=== PATIENT | female | born 1965 | race Caucasian/White ===

== ENCOUNTER 2021-06-05 08:32 | Emergency (ER) | payer BC, SELFPAY ==
--- NOTE | ~2021-06-05 | CT_ITS ---
EXAMINATION: CT ANGIOGRAM OF THE CHEST WITH AND WITHOUT CONTRAST (CT PULMONARY ANGIOGRAM FOR PE) CLINICAL INFORMATION: Reason for Exam pt c right chest pain/sob elevated d-dimer COMPARISON: None TECHNIQUE: Prior to contrast administration, noncontrast localization images were obtained. Subsequently, multidetector volumetric imaging was performed from the thoracic inlet to below the diaphragms following the administration of 130 mL Omnipaque 350 intravenous contrast. No contrast reaction reported Sagittal, coronal, and MIP oblique sagittal reformatted images were obtained on the CT workstation, uploaded to PACS, and reviewed. This CT examination was performed using dose optimization techniques as appropriate, variously including the following: *Automated exposure control *Adjustment of mA and/or kV according to patient size (this includes techniques or standardized protocols for targeted exams where dose is matched to indication/reason for exam; i.e. extremities or head) *Use of iterative reconstruction technique Total exam dose-length product 237 mGy-cm FINDINGS: QUALITY OF STUDY/CONTRAST BOLUS: Satisfactory. PULMONARY ARTERIES: No central or segmental pulmonary emboli. THORACIC AORTA: No aneurysm or dissection. LUNG: The lungs are well-expanded and clear of acute pneumonic process. There is a 2 mm nodule right upper lobe axial image 140/8. No additional nodules seen. There is no consolidation or mass. There is bibasilar and lingular atelectasis and/or scarring. PLEURA: There is bilateral posterior pleural thickening. MEDIASTINUM: Heart size and the great vessels are normal. There is no pericardial effusion. The central trachea and the bronchi widely patent. The thyroid lobes are symmetrical and normal. No abnormal size mediastinal or hilar lymph nodes seen. There is a small hiatal hernia. CHEST WALL/AXILLA: No axillary or internal mammary lymphadenopathy. OSSEOUS STRUCTURES: No acute or suspicious osseous abnormality. UPPER ABDOMEN: Visualized liver, spleen, pancreas and bilateral adrenal glands unremarkable. No reflux of contrast into the hepatic veins to suggest elevated right heart pressures. CT/CT angio chest PE protocol IMPRESSION: No evidence of PE. No evidence aortic dissection. Bibasilar and lingular atelectasis and/or scarring. VTE: negative.
--- NOTE | ~2021-06-05 | XR_ITS ---
EXAMINATION: XR RIBS, RIGHT CLINICAL INFORMATION: Rib pain. COMPARISON: None TECHNIQUE: 3 views of the right ribs were obtained. Chest one view. FINDINGS: CHEST: Lungs are well-expanded and clear of acute process. Heart size and pulmonary vascularity are normal. No gross bony abnormality is seen. RIGHT RIBS: Multiple views of right ribs reveal no visible acute fracture or bony abnormality. The soft tissues are normal. XR/XR ribs RT min 3V w CXR1V IMPRESSION: Unremarkable chest exam. Unremarkable right rib series.
[2021-06-05 08:42] VITALS: BP 125/89; PULSE 83; RESP 16; TEMP 36.1; O2SAT 100; BMI 29.4
--- NOTE | 2021-06-05 08:46 | ECG_ITS ---
Test Reason : rib pain Blood Pressure : / mmHG Vent. Rate : 076 BPM Atrial Rate : 076 BPM P-R Int : 148 ms QRS Dur : 080 ms QT Int : 400 ms P-R-T Axes : 031 005 025 degrees QTc Int : 450 ms Normal sinus rhythm Normal ECG No previous ECGs available Referred By: Generic ED Physician Electronically Signed By:JULIANNA PALOMINO MD
[2021-06-05 10:47] LABS: MANUAL DIFF FLAG NO
[2021-06-05 10:49] LABS: Basophils Absolute Auto 0.1 X10*3/uL (0.0-0.2); Basophils Percent Auto 0.7 % (0-2); Eosinophils Absolute Auto 0.1 X10*3/uL (0.0-0.4); Hematocrit 39.5 % (37.0-47.0); Hemoglobin 13.1 g/dl (12.0-16.0); Imm Gran Abs Auto 0.02 X10*3/uL (0.00-0.03); Imm Gran Pct Auto 0.3 % (0.0-0.4); Lymphocytes Absolute Auto 1.4 X10*3/uL (1.2-4.9); Lymphocytes Percent Auto 18.4 % (20-40); Mean Corpuscular HGB Conc 33.2 g/dl (31.0-35.0); Mean Corpuscular Hemoglobin 29.6 pg (27.0-33.0); Mean Corpuscular Volume 89.4 fL (80.0-98.0); Mean Platelet Volume 9.6 fL (9.4-12.3); Monocytes Absolute Auto 0.9 X10*3/uL (0.1-1.2); Neutrophils Percent Auto 67.6 % (45-73); Platelet Count 228 X10*3/uL (160-400); Red Blood Count 4.42 X10*6/uL (4.20-5.50); Red Cell Distribution Width 12.1 % (11.0-16.0); White Blood Count 7.3 X10*3/uL (4.8-10.8)
[2021-06-05 10:52] LABS: Appearance Urine CLEAR; Color Urine STRAW; Glucose Urine UA NEG (NEG); Leukocyte Esterase Urine NEG (NEG); Nitrite Urine NEG (NEG); Specific Gravity - Urine <= 1.005 (1.005-1.025); Urine Blood NEG (NEG); Urine Ketones NEG (NEG); Urine Protein NEG (NEG-TRACE)
[2021-06-05 10:54] LABS: INTERNATIONAL NORM RATIO 0.9 (0.9-1.1); Prothrombin Time 9.6 SEC (9.9-13.0)
[2021-06-05 10:56] LABS: D Dimer High Sensitivity 261 NG/ML
[2021-06-05 11:07] LABS: Alanine Aminotransferase 31 U/L (0-31); Albumin Level 4.3 g/dL (3.5-5.0); Alkaline Phosphatase 53 U/L (39-117); Anion Gap 11 (12-20); Aspartate Amino Transferase 28 U/L (5-31); Bilirubin Total 0.5 mg/dL (0.0-1.0); Blood Urea Nitrogen 7 mg/dL (9-16); Calcium 9.7 mg/dL (8.4-10.2); Carbon Dioxide 33 mmol/L (22-29); Chloride 104 mmol/L (96-108); Creatinine Clr Calc Pharmacy 85.8; Estimated Glomerular Filt Rate > 60; Glucose Random 100 mg/dL (60-115); Magnesium 2.2 mg/dL (1.6-2.6); Sodium 144 mmol/L (135-145); Total Protein 6.8 g/dL (6.5-8.0)
[2021-06-05 11:14] LABS: Troponin-I High Sensitivity < 3.5 ng/L (<3.5-17.0)
--- NOTE | 2021-06-05 11:15 | ED.CHESTPAIN ---
HPI - Chest Pain General Chief Complaint: General Medical Stated Complaint: r rib pain hurts to breathe Time Seen by Provider: 06/05/21 09:42 Source: patient Mode of arrival: ambulatory Limitations: no limitations History of Present Illness HPI narrative: 55-year-old female who denies any medical history presenting to the ED with complaints of right lower anterior rib cage/anterior chest pain for the past week that is now radiating to her upper right chest/right shoulder today. She reports it is worse when she takes a deep breath or certain movements. She reports that she tested herself for COVID this morning at her house and was negative. She denies any falls, trauma, fevers, chills, dizziness, headaches, neck pain/stiffness, palpitations, dyspnea on exertion, orthopnea, paresthesias, nausea/vomiting/diarrhea, abdominal pain, back pain, dysuria, rashes, cough or any other symptoms complaints or concerns at this time. She denies recent surgery/mobilizations/hypercoagulation disorder/travel/history of PE or DVT/history of hypercoagulation disorder/estrogen usage or PVD disease that she is aware of. MD complaint: chest discomfort Onset (ago): week(s) (1) Timing of current episode: constant Prior episodes: No Onset: other (Cannot recall) Pain location: right chest Pain radiation: right arm, right shoulder and right scapula Severity: moderate Quality: aching Relieving factors: nothing Exacerbating factors: inspiration, palpation and movement Treatment prior to arrival: none Risk Factors Coronary artery disease risk factors: none Thoracic aortic dissection risk factors: none Related Data On Oral Contraceptives: No Previous Rx's Medication Instructions Recorded diazepam 10 mg tablet (Valium) 10 mg PO Q8H PRN #14 tab 06/05/21 ibuprofen 800 mg tablet 800 mg PO Q8H PRN #14 tab 06/05/21 Allergies Allergy/AdvReac Type Severity Reaction Status Date / Time No Known Allergies Allergy Verified 06/05/21 08:46 Review of Systems Review of Systems: Constitutional : No Weight loss, No Fever, No Chills, No Night Sweats, No Fatigue, No Malaise ENT/Mouth : No Hearing loss, No Ear Pain, No Nasal Congestion, No Sinus Pain, No Hoarseness, No sore throat, No Rhinorrhea, No Swallowing Difficulty Eyes: No Eye Pain, No Swelling, No Redness, No Foreign Body, No Discharge, No Vision Changes Cardiovascular : + Rib cage/Chest Pain, + SOB, No Dyspnea on Exertion, No Orthopnea, No Edema, No Palpitations Respiratory : No Cough, No Sputum, No Wheezing, No Smoke Exposure, No Dyspnea Gastrointestinal : No Nausea, No Vomiting, No Diarrhea, No Constipation, No abdominal Pain, No Hematochezia, No Melena Genitourinary : no irregular bleeding, No Dysuria, No Urinary Frequency, No Hematuria, No Urinary Incontinence, No Urgency, No Flank Pain, No Urinary Flow Changes, No Hesitancy Musculoskeletal : No joint pain, No Myalgias, No Joint Swelling Skin : No Skin Lesions, No rash Neuro : No Weakness, No Numbness, No Paresthesias, No Loss of Consciousness, No Dizziness, No Headache Psych : No Anxiety/Panic, No Depression, No SI/HI/AH/VH, No Social Issues, Heme/Lymph: No Bruising, No Bleeding,No Lymphadenopathy Endocrine : No Polyuria, No Polydipsia, No Temperature Intolerance Yes all other systems are reviewed and are negative [facility] Past Medical History Attestation statement: The following information was validated with the patient. Medical History Chronic pain Social History Social History Advance Directives: No Advance Directives Information Provided: No Physical Exam Vital Signs: Vital Signs: Last Vital Signs Temp 97.0 F 06/05/21 08:42 Pulse 83 06/05/21 08:42 Resp 16 06/05/21 08:42 BP 125/89 06/05/21 08:42 Pulse Ox 100 06/05/21 08:42 BMI result Body Mass Index 29.4 vital signs have been reviewed as normal and appeared to be correct. Blood pressure normal. Heart rate normal. Respiration rate normal. Temperature normal. Oxygen saturation normal. Appearance: Alert. Oriented X3. No acute distress. Head: Normal external exam. Normocephalic. Atraumatic. Eyes: PERRLA. EOMI. Conjunctiva and sclera normal. Eyelids normal. ENT: Pharynx normal. Uvula midline. Moist mucous membranes. Neck: Normal inspection. Neck supple. FROM. No adenopathy. Thyroid Normal. No meningeal signs. No neck mass noted. CVS: Normal heart rate and rhythm. Heart sound normal. Pulses normal throughout. No murmurs/rales/gallops. Respiratory: No respiratory distress. Painless inspiration. Breath sounds normal. No wheezes/rales/rhonchi noted. Patient with tenderness palpation to the anterior lateral chest wall. No crepitus is noted. No rashes are noted. Not consistent with flail chest. No signs of infection noted. No abnormalities noted on the chest. No accessory muscle usage noted or decreased air movement noted. Abdomen: Soft and nontender. Bowel sounds normal in all 4 quadrants. No distention noted. No organomegaly noted. No visible injury noted. Back: Full range of motion noted. No rashes/lesion/induration/fluctuance or signs of infection noted. Skin: Skin warm and dry. Normal skin color. Normal skin turgor. No rashes/lesions/lacerations noted. Extremities: No lower extremity edema. No calf tenderness is noted. Extremities exhibit normal range of motion. Extremities nontender. Neuro: Oriented X 3. No motor deficit. No sensory deficit. Reflexes normal. Normal steady gait. No focal neuro deficits noted. Vascular: + radial pulses/+ 2 distal pedal pulses/+2 dorsalis pedis b/l. Normal cap refill. No cyanosis noted to upper extremity nails and lower extremity toes nails. Course Course Course Narrative: 10am - 55-year-old female who denies any medical history presenting to the ED with complaints of right lower anterior rib cage/anterior chest pain for the past week that is now radiating to her upper right chest/right shoulder today. She reports it is worse when she takes a deep breath or certain movements. She reports that she tested herself for COVID this morning at her house and was negative. She denies any falls, trauma, fevers, chills, dizziness, headaches, neck pain/stiffness, palpitations, dyspnea on exertion, orthopnea, paresthesias, nausea/vomiting/diarrhea, abdominal pain, back pain, dysuria, rashes, cough or any other symptoms complaints or concerns at this time. She denies recent surgery/mobilizations/hypercoagulation disorder/travel/history of PE or DVT/history of hypercoagulation disorder/estrogen usage or PVD disease that she is aware of. Plan: Labs including D-dimer and troponin, EKG, ribs with chest x-ray then re-evaluate. Reevaluation(s) Reevaluation #1: - labs reviewed and carbon dioxide 33. Anion gap 11. BUN 7. D-dimer elevated at 261. Otherwise all other labs are within normal limits including D-dimer. UA within normal limits no evidence of UTI. Rib/PA chest x-ray within normal limits no acute processes are noted. - therefore due to elevated D-dimer will obtain a CTA of chest for possible PE if negative will DC home with symptomatic treatment for possibly musculoskeletal pain. Patient understands agrees with this plan. Time: 11:16 Reevaluation #2: CTA negative patient most likely muscular skeletal pain. Will DC home with symptomatic treatment instructions to follow up with primary care and to return if any new or worsening symptoms. Patient understands agrees with this plan. Time: 14:51 [facility] - Chest Pain Medical Records Data Attestation: I reviewed the patient's medical records. Lab Data Attestation: I reviewed the patient's lab results. Result diagrams: 06/05/21 10:36 06/05/21 10:36 Labs: Lab Results 06/05/21 06/05/21 06/05/21 Range/Units 10:35 10:36 10:36 WBC 7.3 (4.8-10.8) X10*3/uL RBC 4.42 (4.20-5.50) X10*6/uL Hgb 13.1 (12.0-16.0) g/dl Hct 39.5 (37.0-47.0) % MCV 89.4 (80.0-98.0) fL MCH 29.6 (27.0-33.0) pg MCHC 33.2 (31.0-35.0) g/dl RDW 12.1 (11.0-16.0) % Plt Count 228 (160-400) X10*3/uL MPV 9.6 (9.4-12.3) fL Immature Gran % (Auto) 0.3 (0.0-0.4) % Neut % (Auto) 67.6 (45-73) % Lymph % (Auto) 18.4 L (20-40) % Polk % (Auto) 12.0 H (2-11) % Eos % (Auto) 1.0 (0-4) % Baso % (Auto) 0.7 (0-2) % Lymph # (Auto) 1.4 (1.2-4.9) X10*3/uL Polk # (Auto) 0.9 (0.1-1.2) X10*3/uL Eos # (Auto) 0.1 (0.0-0.4) X10*3/uL Baso # (Auto) 0.1 (0.0-0.2) X10*3/uL Abs Immat Gran (auto) 0.02 (0.00-0.03) X10*3/uL Absolute Neuts (auto) 5.0 (2.0-8.3) x10*3/uL Absolute Nucleated RBC 0.000 (0.0-0.012) X10*3/uL Nucleated RBC % (auto) 0.0 (0.0-0.2) /100WBC PT 9.6 L (9.9-13.0) SEC INR 0.9 (0.9-1.1) D-Dimer High Sensitivty 261 NG/ML Sodium (135-145) mmol/L Potassium (3.3-5.1) mmol/L Chloride (96-108) mmol/L Carbon Dioxide (22-29) mmol/L Anion Gap (12-20) BUN (9-16) mg/dL Creatinine (0.5-1.4) mg/dL Estim Creat Clear Calc Estimated GFR Random Glucose (60-115) mg/dL Calcium (8.4-10.2) mg/dL Magnesium (1.6-2.6) mg/dL Total Bilirubin (0.0-1.0) mg/dL AST (5-31) U/L ALT (0-31) U/L Alkaline Phosphatase (39-117) U/L Troponin I High Sens < 3.5 (<3.5-17.0) ng/L Total Protein (6.5-8.0) g/dL Albumin (3.5-5.0) g/dL Urine Color Urine Appearance Urine pH (5.0-8.0) Ur Specific [place] (1.005-1.025) Urine Protein (NEG-TRACE) MG/DL Urine Glucose (UA) (NEG) MG/DL Urine Ketones (NEG) MG/DL Urine Blood (NEG) Urine Nitrite (NEG) Ur Leukocyte Esterase (NEG) 06/05/21 06/05/21 Range/Units 10:36 10:39 WBC (4.8-10.8) X10*3/uL RBC (4.20-5.50) X10*6/uL Hgb (12.0-16.0) g/dl Hct (37.0-47.0) % MCV (80.0-98.0) fL MCH (27.0-33.0) pg MCHC (31.0-35.0) g/dl RDW (11.0-16.0) % Plt Count (160-400) X10*3/uL MPV (9.4-12.3) fL Immature Gran % (Auto) (0.0-0.4) % Neut % (Auto) (45-73) % Lymph % (Auto) (20-40) % Polk % (Auto) (2-11) % Eos % (Auto) (0-4) % Baso % (Auto) (0-2) % Lymph # (Auto) (1.2-4.9) X10*3/uL Polk # (Auto) (0.1-1.2) X10*3/uL Eos # (Auto) (0.0-0.4) X10*3/uL Baso # (Auto) (0.0-0.2) X10*3/uL Abs Immat Gran (auto) (0.00-0.03) X10*3/uL Absolute Neuts (auto) (2.0-8.3) x10*3/uL Absolute Nucleated RBC (0.0-0.012) X10*3/uL Nucleated RBC % (auto) (0.0-0.2) /100WBC PT (9.9-13.0) SEC INR (0.9-1.1) D-Dimer High Sensitivty NG/ML Sodium 144 (135-145) mmol/L Potassium 4.0 (3.3-5.1) mmol/L Chloride 104 (96-108) mmol/L Carbon Dioxide 33 H (22-29) mmol/L Anion Gap 11 L (12-20) BUN 7 L (9-16) mg/dL Creatinine 0.72 (0.5-1.4) mg/dL Estim Creat Clear Calc 85.8 Estimated GFR > 60 Random Glucose 100 (60-115) mg/dL Calcium 9.7 (8.4-10.2) mg/dL Magnesium 2.2 (1.6-2.6) mg/dL Total Bilirubin 0.5 (0.0-1.0) mg/dL AST 28 (5-31) U/L ALT 31 (0-31) U/L Alkaline Phosphatase 53 (39-117) U/L Troponin I High Sens (<3.5-17.0) ng/L Total Protein 6.8 (6.5-8.0) g/dL Albumin 4.3 (3.5-5.0) g/dL Urine Color STRAW Urine Appearance CLEAR Urine pH 6.0 (5.0-8.0) Ur Specific [place] <= 1.005 (1.005-1.025) Urine Protein NEG (NEG-TRACE) MG/DL Urine Glucose (UA) NEG (NEG) MG/DL Urine Ketones NEG (NEG) MG/DL Urine Blood NEG (NEG) Urine Nitrite NEG (NEG) Ur Leukocyte Esterase NEG (NEG) Imaging Data Ribs and PA chest x-ray: Attestation: I personally reviewed and interpreted this imaging study as follows: Radiologist's impression: FINDINGS: CHEST: Lungs are well-expanded and clear of acute process. Heart size and pulmonary vascularity are normal. No gross bony abnormality is seen. RIGHT RIBS: Multiple views of right ribs reveal no visible acute fracture or bony abnormality. The soft tissues are normal. XR/XR ribs RT min 3V w CXR1V IMPRESSION: Unremarkable chest exam. ? Unremarkable right rib series CTA of chest for PE: Attestation: I personally reviewed and interpreted this imaging study as follows: Radiologist's impression: FINDINGS: QUALITY OF STUDY/CONTRAST BOLUS: Satisfactory. PULMONARY ARTERIES: No central or segmental pulmonary emboli.? THORACIC AORTA: No aneurysm or dissection. LUNG: The lungs are well-expanded and clear of acute pneumonic process. There is a 2 mm nodule right upper lobe axial image 140/8. No additional nodules seen. There is no consolidation or mass. There is bibasilar and lingular atelectasis and/or scarring. PLEURA: There is bilateral posterior pleural thickening. MEDIASTINUM: Heart size and the great vessels are normal. There is no pericardial effusion. The central trachea and the bronchi widely patent. The thyroid lobes are symmetrical and normal. No abnormal size mediastinal or hilar lymph nodes seen. There is a small hiatal hernia. CHEST WALL/AXILLA: No axillary or internal mammary lymphadenopathy. OSSEOUS STRUCTURES: No acute or suspicious osseous abnormality.? UPPER ABDOMEN: Visualized liver, spleen, pancreas and bilateral adrenal glands unremarkable.? No reflux of contrast into the hepatic veins to suggest elevated right heart pressures. CT/CT angio chest PE protocol IMPRESSION: No evidence of PE. No evidence aortic dissection. ? Bibasilar and lingular atelectasis and/or scarring. ? VTE: negative. ECG Data ECG #1: ECG interpretation date: 06/05/21 ECG interpretation time: 08:48 Interpretation: Normal sinus rhythm with a ventricular rate of 76 with a normal AK interval normal QRS duration normal QT/QTC interval. No acute ischemic changes are noted. No prior EKGs in our system to compare to at this time. Critical Care Time Critical Care Time Critical Care Time: Yes Total Critical Care Time: 60 Attestation: I personally attest to this time spent taking care of the patient Discharge Plan Discharge Clinical Impression: Pain in rib, Acute chest wall pain Patient Disposition: Home, Self-Care Instructions: Chest Wall Pain (ED) Prescriptions: New diazepam [Valium] 10 mg tablet 10 mg PO Q8H PRN (Reason: muscle spasm) Qty: 14 RF: 0 ibuprofen 800 mg tablet 800 mg PO Q8H PRN (Reason: pain) Qty: 14 RF: 0 Referrals: Shannon Harp NP [Primary Care Provider] - 2 days Stand Alone Forms: Work/School Release
[2021-06-05] MEDS: 0.9 % Sodium Chloride 1,000 ML 999 ML IVCONT (11:53)
== END 2021-06-05 15:00 | disposition home or self-care (01) ==
PROVIDERS: Physician Assistant Medical; Emergency Provider Emergency Medicine; PCP Nurse Practitioner Family
DX: R07.89 Other chest pain (principal); R07.81 Pleurodynia; R79.1 Abnormal coagulation profile
CPT/HCPCS: 36415; 71101; 71275; 80053; 81003; 83735; 84484; 85025; 85379; 85610; 93005; 96360; 99284; 99291

== ENCOUNTER 2022-03-25 06:49 | Inpatient (IN) | payer BC, SELFPAY ==
--- NOTE | ~2022-03-25 | CT_ITS ---
PROCEDURE: CT-GUIDED ABSCESS DRAINAGE CLINICAL INFORMATION: Perforated appendicitis with multiple abscesses. COMPARISON: Previous CT from earlier the same day. TECHNIQUE: Procedure and risks and benefits including bleeding, infection and injury to the bowel or adjacent organs was discussed with the patient and informed consent was obtained. Limited axial images through the pelvis were performed. The left lower anterior abdominal wall was prepped and draped in the usual sterile fashion. The skin and soft tissues were anesthetized with 1% lidocaine plain. Using CT guidance and a 4-Scottish Yueh needle, access to the fluid collection in the left lower quadrant/upper pelvis was obtained. Over an 035 wire, an 8.5-Scottish pigtail drainage catheter was positioned. Approximately 60 mL of cueto cloudy purulent-appearing fluid was removed. Diagnostic specimen was sent. Subsequently, the pelvic drainage catheter was pulled back and repositioned in the right pelvis. Approximately 40 mL of cueto-colored purulent-appearing fluid was aspirated. The patient received Versed 1 mg and fentanyl 50 mcg intravenously during the procedure. Total sedation time was 30 minutes. Conscious sedation was provided by a registered nurse under my direct supervision. This CT examination was performed using dose optimization techniques as appropriate, variously including the following: *Automated exposure control. *Adjustment of mA and/or kV according to patient size (this includes techniques or standardized protocols for targeted exams where dose is matched to indication/reason for exam; i.e. extremities or head). *Use of iterative reconstruction technique. DLP: 252 mGy-cm FINDINGS: There is approximately 4 x 5 cm fluid collection in the left lower quadrant/upper pelvis that was targeted for fine-needle aspiration. Post drain placement demonstrate satisfactory position of the drainage catheter and disappearance of the fluid collection. Pelvic drainage catheter was pulled back into the residual collection in the right side of the pelvis. CT/CT guided drainage IMPRESSION: Placement of new 8.5-Scottish left lower quadrant drainage catheter. Reposition of existing pelvic drainage catheter.
--- NOTE | ~2022-03-25 | CT_ITS ---
EXAMINATION: CT ABDOMEN AND PELVIS WITH CONTRAST CLINICAL INFORMATION: Abscess. Elevated WBC. COMPARISON: 03/28/2022 TECHNIQUE: Multidetector volumetric images were obtained from the superior aspect of the liver through the pubic symphysis following administration 85 mL of Omnipaque 350 intravenous contrast. Sagittal and coronal reformatted images were obtained on the technologist's workstation. Oral contrast: No This CT examination was performed using dose optimization techniques as appropriate, variously including the following: *Automated exposure control *Adjustment of mA and/or kV according to patient size (this includes techniques or standardized protocols for targeted exams where dose is matched to indication/reason for exam; i.e. extremities or head) *Use of iterative reconstruction technique DLP: 532 mGy-cm FINDINGS: LUNG BASES: Small bilateral pleural effusions are present, increased from prior. Associated atelectasis. LIVER, GALLBLADDER, AND BILIARY TREE: The liver is normal in size, shape, and attenuation. No focal hepatic lesion or biliary ductal dilatation is present. The gallbladder is contracted with no evidence of radiopaque gallstones, gallbladder wall thickening, or obvious pericholecystic inflammatory changes. PANCREAS: Unremarkable. SPLEEN: Unremarkable. ADRENAL GLANDS: Unremarkable. KIDNEYS AND URETERS: The kidneys are normal in size, shape, and attenuation. No hydronephrosis, hydroureter, or calculi seen. No perinephric stranding. BLADDER: Normally distended bladder without wall thickening. Small amount of fluid in the bladder lumen. GASTROINTESTINAL TRACT: Contrast in the stomach. The small bowel is normal in caliber with contrast internally. Contrast extends to the colon. No colonic wall thickening. No obstruction. There are 3 separate pigtail catheter drains in the pelvis. The anterior drain is associated with a fluid collection that is decreased in size from prior. This specific loculation of fluid currently measures 3.1 x 3.4 cm, decreased from 5.2 x 5.4 cm on prior. The right lateral drain has no significant fluid collection associated, similar to prior. The right-sided posterior drain has been partially retracted compared to prior. This fluid collection is decreased, with small amount of fluid remaining. There is additional layering free fluid in the pelvis in this region. There is a separate fluid collection along the uterus anteriorly which remains. This loculation measures 6.9 x 3 cm, previously 8.4 x 2.5 cm. Additional small amount of fluid is seen adjacent to the cecum and small bowel in the right pelvis where there is associated bowel wall thickening. This measures 2.1 x 1.6 cm on series 3 image 63. On the prior study there was a more central pelvic collection which has improved. Small residual gas and fluid is seen in this area, series 3 image 67. ABDOMINAL WALL: No significant hernia is appreciated. Moderate anasarca. LYMPH NODES: Normal. VASCULAR: Unremarkable. PELVIC VISCERA: The uterus and adnexa are unremarkable. OSSEOUS STRUCTURES: No acute or suspicious osseous abnormality. CT/CT abdomen pelvis w IV con IMPRESSION: 1. There are 3 separate pigtail catheter drains in the pelvis. There is overall decrease in size of the fluid collections in the pelvis. There is a separate fluid collection along the uterus anteriorly which is somewhat changed in shape compared to prior. There is a previous central pelvic collection which does not have an internal catheter which is decreased from prior. There is a small collection adjacent to the bowel in the right lower quadrant which is more performed, with associated bowel wall thickening. 2. Small bilateral pleural effusions are increased from prior. Fleischner guidelines were followed.
--- NOTE | ~2022-03-25 | CT_ITS ---
EXAMINATION: CT ABDOMEN AND PELVIS WITH CONTRAST CLINICAL INFORMATION: Lower abdominal pain. Rule out perforated appendix. COMPARISON: None TECHNIQUE: Multidetector volumetric images were obtained from the superior aspect of the liver through the pubic symphysis following administration 85 mL of Omnipaque 350 intravenous contrast. Sagittal and coronal reformatted images were obtained on the technologist's workstation. Oral contrast: No This CT examination was performed using dose optimization techniques as appropriate, variously including the following: *Automated exposure control *Adjustment of mA and/or kV according to patient size (this includes techniques or standardized protocols for targeted exams where dose is matched to indication/reason for exam; i.e. extremities or head) *Use of iterative reconstruction technique DLP: 617 mGy-cm FINDINGS: LUNG BASES: The lung bases appear clear, with no evidence of inflammation or nodules. LIVER, GALLBLADDER, AND BILIARY TREE: The liver appears unremarkable in size, shape, and attenuation. No focal hepatic lesion or biliary ductal dilatation is appreciated. Unremarkable appearance of the gallbladder. PANCREAS: Unremarkable SPLEEN: Unremarkable ADRENAL GLANDS: Unremarkable KIDNEYS AND URETERS: The kidneys appear unremarkable in size, shape, and attenuation. No hydronephrosis, hydroureter, or calculi seen. BLADDER: Decompressed, therefore suboptimally evaluated. Small focus of air in the nondependent portion of the urinary bladder. GASTROINTESTINAL TRACT/PERITONEAL CAVITY: Approximately 9.2 x 7.6 x 5.3 cm region of apparently loculated fluid within the cul-de-sac. Associated enhancement of surrounding peritoneum, suggesting peritonitis. This collection appears to communicate with the distal end of the vermiform appendix. The appendix itself appears to demonstrate a mildly thickened wall, and measures 1.0 cm in diameter. Additional regions of peritoneal fluid in the mesentery and paracolic gutter which also probably demonstrate mild surrounding peritoneal enhancement. The mesenteric collection contains free air (image 64, series 3). Multiple loops of mildly dilated small bowel with air-fluid levels, predominantly located in the left upper quadrant. Long segment concentric thickening of the distal ileum with associated target sign. Colonic diverticula without evidence of diverticulitis. ABDOMINAL WALL: No significant hernia is appreciated. LYMPH NODES: No evidence of adenopathy by size criteria. VASCULAR: Unremarkable PELVIC VISCERA: Unremarkable OSSEOUS STRUCTURES: Mild compression deformity of L1, age indeterminate. CT/CT abdomen pelvis w IV con IMPRESSION: Findings, as above, consistent with perforated appendicitis. Findings suggesting left upper quadrant small bowel ileus. Suspect superimposed Crohn's disease.
--- NOTE | ~2022-03-25 | CT_ITS ---
PROCEDURE: CT-GUIDED ABSCESS DRAINAGE CLINICAL INFORMATION: Abdominal and pelvic abscesses. Question ruptured appendicitis. COMPARISON: CT from earlier the same day. TECHNIQUE: Procedure and risks and benefits including bleeding, infection and injury to the bowel or adjacent organs was discussed with the patient and informed consent was obtained. Initially, the patient was positioned in the prone position. Limited axial images through the pelvis were performed. The right buttock was prepped and draped in the usual sterile fashion. The skin and soft tissues were anesthetized with 1% lidocaine plain. Using CT guidance and a 22-gauge Chiba needle, access to the fluid collection in the pelvis was obtained. Mims purulent fluid was aspirated. Over an 018 wire, a Chiba needle was exchanged for a 6-Faroese AccuStick system. An 018 wire was exchanged for an 035 wire. An 8.5-Faroese drainage catheter was advanced over the guidewire. Approximately 120 mL of mims-colored purulent fluid was aspirated. Specimen was sent for Gram stain and culture. Subsequently, the patient was repositioned in the supine position. Limited axial images through the lower abdomen were performed. The right lower quadrant was prepped and draped in the usual sterile fashion. The skin and soft tissues were anesthetized with 1% lidocaine plain. Using CT guidance and a 5-Faroese Yueh needle, access to the fluid collection in the right lower quadrant was obtained. Slightly cloudy mims fluid was aspirated. Over an 035 wire, an 8.5-Faroese pigtail drainage catheter was positioned in the collection. 60 to 70 mL of slightly cloudy mims-colored fluid was removed. Specimen was sent for Gram stain and culture. The patient received Versed 2 mg and fentanyl 100 mcg intravenously during the procedure. Total sedation time was 70 minutes. Conscious sedation was provided by a registered nurse under my direct supervision. This CT examination was performed using dose optimization techniques as appropriate, variously including the following: *Automated exposure control. *Adjustment of mA and/or kV according to patient size (this includes techniques or standardized protocols for targeted exams where dose is matched to indication/reason for exam; i.e. extremities or head). *Use of iterative reconstruction technique. DLP: 404 mGy-cm FINDINGS: There is a 5 x 6 cm fluid collection in the pelvis with small amount of air that was targeted for drainage. Post drain placement images demonstrate significant interval decrease in size in the collection. The most inferior collection in the right lower quadrant lateral to the colon was targeted for drainage. Post drain placement and aspiration, no residual fluid is seen in this region. CT/CT guided drainage IMPRESSION: CT-guided 8.5-Faroese drainage catheter placement in the pelvis and right lower quadrant.
--- NOTE | ~2022-03-25 | CT_ITS ---
EXAMINATION: CT ABDOMEN AND PELVIS WITH CONTRAST CLINICAL INFORMATION: Perforated appendicitis COMPARISON: Previous CT 03/25/2022 TECHNIQUE: Multidetector volumetric images were obtained from the superior aspect of the liver through the pubic symphysis following administration 85 mL of Omnipaque 350 intravenous contrast. Sagittal and coronal reformatted images were obtained on the technologist's workstation. Oral contrast: Yes This CT examination was performed using dose optimization techniques as appropriate, variously including the following: *Automated exposure control *Adjustment of mA and/or kV according to patient size (this includes techniques or standardized protocols for targeted exams where dose is matched to indication/reason for exam; i.e. extremities or head) *Use of iterative reconstruction technique DLP: 500 mGy-cm FINDINGS: LUNG BASES: There is bilateral lower lobe atelectasis/consolidation and small pleural effusions, left greater than right. LIVER, GALLBLADDER, AND BILIARY TREE: The liver is normal in size, shape, and attenuation. No focal hepatic lesion or biliary ductal dilatation is present. The gallbladder is unremarkable with no evidence of radiopaque gallstones, gallbladder wall thickening, or obvious pericholecystic inflammatory changes. PANCREAS: Unremarkable. SPLEEN: Unremarkable. ADRENAL GLANDS: Unremarkable. KIDNEYS AND URETERS: The kidneys are normal in size, shape, and attenuation. No hydronephrosis, hydroureter, or calculi seen. No perinephric stranding. BLADDER: There is a small amount of air in the bladder. This may be related to recent Ni catheter placement. Clinical correlation recommended. GASTROINTESTINAL TRACT: There is a new right lateral abdominal wall drainage catheter. Previously identified fluid collection adjacent to the lateral right colon is no longer seen. There is a new drainage catheter in the posterior pelvis. There is interval decrease in size in the pelvic collection. The pigtail portion of the catheter is in the left pelvis and pulling the catheter back 5 to 7 cm would probably decreased residual fluid in the right posterior pelvis. There is a new or increasing fluid collection just deep to the abdominal wall and the left upper pelvis measuring approximately 4 x 5 cm. There is a new or increasing fluid collection superior to the uterus measuring 2.5 x 8 cm. There are new or increasing fluid collections adjacent to the right colon and in the mesentery. Largest collection measures 4.6 x 8.6 cm and contains a small amount of air. The visualized base of the appendix appears dilated measuring up to 1 cm. Again appearance is concerning for perforated appendicitis with abscesses. There is still marked wall thickening and edema and enhancement of the distal small bowel. Whether this represents reactive changes to peritonitis from a perforated appendicitis versus inflammatory bowel disease is uncertain. The large bowel is unremarkable. No free air is seen. The stomach is unremarkable. ABDOMINAL WALL: No significant hernia is appreciated. LYMPH NODES: Mesenteric and retroperitoneal small lymph nodes in the abdomen. VASCULAR: Unremarkable. PELVIC VISCERA: Unremarkable. OSSEOUS STRUCTURES: Slight loss of height of the left superior endplate of the L1 vertebral body versus Schmorl's node. CT/CT abdomen pelvis w IV con IMPRESSION: Findings again suggestive of perforated appendicitis. Interval decrease in right lateral abdominal and pelvic fluid collections postdrainage. Increasing smaller fluid collections adjacent to the medial right colon, deep in the bowel mesentery, left anterior pelvis and deep in the pelvis superior to the uterus. Persistent abnormal wall thickening and edema and enhancement of the distal small bowel. Uncertain whether this is related to reactive changes from peritonitis or inflammatory bowel disease. Fleischner guidelines were followed.
--- NOTE | ~2022-03-25 | CT_ITS ---
PROCEDURE: CT-GUIDED ASPIRATION, FINE NEEDLE, WITH IMAGE GUIDANCE CLINICAL INFORMATION: Perforated appendicitis and multiple fluid collections. COMPARISON: Previous CT of the abdomen and pelvis most recent from yesterday. TECHNIQUE: Procedure and risks and benefits including bleeding, infection, injury to the bowel or adjacent organs was discussed the patient and informed consent was obtained. The patient was positioned in the supine position. Axial images through the pelvis were performed. The left lower quadrant was prepped and draped in the usual sterile fashion. Using CT guidance and a 22-gauge Chiba needle, access to the fluid collection posterior to the bladder and anterior to the uterus was obtained. Mims cloudy fluid was aspirated. Over a 0.018 wire, multiple attempts at placing a 6.3 Czech pigtail drainage catheter were made. Catheter could not be advanced into the collection. Over a 0.018 wire, a 6 Czech AccuStick system was positioned in the collection. A total of 20 mL of cloudy mims slightly blood-tinged fluid was aspirated. Diagnostic specimen was sent. Postprocedure imaging was performed. Subsequently, the patient's pelvic drain and right lower quadrant drain were removed. Patient received Versed 1 mg and fentanyl 50 mcg intravenously during the procedure. Total sedation time was 50 minutes. Patient dose 287 mGy-cm. Conscious sedation was provided by registered nurse under my direct supervision with continuous hemodynamic monitoring. This CT examination was performed using dose optimization techniques as appropriate, variously including the following: *Automated exposure control *Adjustment of mA and/or kV according to patient size (this includes techniques or standardized protocols for targeted exams where dose is matched to indication/reason for exam; i.e. extremities or head) *Use of iterative reconstruction technique DLP: 287 mGy-cm FINDINGS: There is a 3 x 6 cm fluid collection anterior to the uterus and posterior to the bladder that was targeted for aspiration/drainage. Postprocedure imaging demonstrates a decrease in size in this collection measuring 1.7 x 5.5 cm in AP and transverse dimension. CT/CT guided needle placement IMPRESSION: CT-guided aspiration of fluid collection anterior to the uterus and posterior to the bladder. Right lower quadrant and right posterior cul-de-sac drains were also removed.
--- NOTE | ~2022-03-25 | CT_ITS ---
PROCEDURE: CT GUIDED ABSCESS DRAINAGE Please see combined report from the same day.
[2022-03-25 07:09] VITALS: BP 143/86; BP 156/85; PULSE 82; PULSE 94; RESP 18; TEMP 36.7; O2SAT 100; O2SAT 99; BMI 29.2
--- NOTE | 2022-03-25 07:16 | PC.NURSE ---
patient a/ox4 . pearrla . lungs clear . heart rate regular at 98 beats per minute . skin pink warm and dry . abdomen soft , distended . positive bowel sounds throughout . rebound tenderness noted in lower left quadrant . patient has also been belching frequently during assessment . patient reports 10/10 pain. She also reports medicated herself at 0530 625mg x2 of Tylenol prior t coming to ED .with zero effect on pain . patient has 20 in left AC . patient aware of plan of care .
--- NOTE | 2022-03-25 07:57 | ED_ITS ---
HPI - Abdominal Pain General Chief Complaint: Abdominal Pain Stated Complaint: abd pain/constipation Time Seen by Provider: 03/25/22 06:54 Source: patient Mode of arrival: ambulatory Limitations: no limitations History of Present Illness HPI narrative: 56-year-old female who presents emergency department for evaluation of abdominal pain, nausea, vomiting, diarrhea. The patient states she developed lower abdominal pain on (03/20/2022-6 days prior to evaluation). She states that the pain came on suddenly and then got gradually worse. She states the pain started in her lower abdomen was worse on the right lower abdomen the left lower abdomen. She states that her entire abdomen now hurts and she does feel distended. She describes the pain as a sharp cramping like sensation which is constant, waxes and wanes in intensity and is 10/10. This is the 1st episode of this type of pain. She had subjective fever and chills at home. She states that she had nausea and was vomiting 3 to 4 times a day and only vomited once today. She states that she was feeling constipated and took a fiber supplement on Thursday (03/22/2020 2-4 days prior to evaluation) and since that time she had multiple episodes of loose diarrheal stool. She did not noted any blood in the stool. She denied rhinorrhea, sore throat, cough, chest pain, shortness of breath, myalgias arthralgias. Past surgical history significant for bilateral tubal ligation. Related Data Home Medications Medication Instructions Recorded Confirmed duloxetine 60 mg capsule,delayed 1 cap PO DAILY 03/25/22 03/25/22 release Allergies Allergy/AdvReac Type Severity Reaction Status Date / Time No Known Allergies Allergy Verified 06/05/21 08:46 Review of Systems Review of Systems Yes all other systems are reviewed and are negative [facility] Past Medical History [facility] Narrative: Past medical history: None. Past surgical history: Bilateral tubal ligation. Social history: Patient denies tobacco use. She does drink alcohol daily. She drinks 2-3 chin/vodka drinks per day. She occasionally smokes marijuana. Medical History Alcohol abuse Anxiety Chronic pain Fibromyalgia Family History Family History Mother Diabetes Cardiomyopathy Father Malignant neoplasm of lung metastatic to brain Social History Social History Alcohol intake: current Alcohol intake frequency: 3 or more drinks per day Alcohol type: hard liquor Patient Tobacco Use Status: Former Tobacco user Tobacco use type: Cigarette Cigarette Packs Per Day: 20 Years Smoked: 12 Smoked in Last 30 Days: No Use of substances other than those prescribed or required for medical reasons: Yes Substance Use Type: Marijuana Substance Use Frequency: Occasionally Last Used Substance: Days (ago) Currently Displaying Signs/Symptoms of Drug Intoxication Withdrawal: No Advance Directives: No Advance Directives Information Provided: No Patient : No Physical Exam ED Vital Signs: Vital Signs - 24 hr 03/25/22 07:09 03/25/22 11:50 Temperature 98.0 F 98.4 F Pulse Rate 94 107 H Respiratory Rate 18 22 H Blood Pressure 156/85 H 154/83 H Pulse Oximetry 100 977 H Oxygen Delivery Method Room Air Room Air BMI result Body Mass Index 29.2 Const Other: Awake, alert, female patient, she is diaphoretic, she appears to be in distress secondary to her abdominal pain, she is pleasant, cooperative answers all questions appropriately [facility] Head: Yes normal to inspection, Yes normocephalic and Yes atraumatic Ears: external ears normal General nose exam: Normal external nose present Face and sinus: Yes normal facial exam Mouth: Normal oral and palatal mucosa present Throat: Yes posterior oropharynx normal Eyes General: appearance normal, both eyes and all related structures Pupils: Equal, round and reactive pupils present Neck Neck: Yes normal visual inspection, Yes no lymphadenopathy, Yes trachea midline and Yes supple Chest Chest palpation & inspection: normal inspection of the chest and normal palpation of entire chest wall Resp Effort & Inspection: normal respiratory effort and able to speak in complete sentences Auscultation: clear to auscultation bilaterally Cardio Rate: regular rate Rhythm: regular rhythm Heart sounds: S1 normal heart sound present, S2 normal heart sound present and no murmurs GI Inspection: Yes distended Palpation (GI): Soft to palpation, Tenderness to palpation present (GI) in the LLQ (Mild), in the RLQ (Moderate to severe), in the RUQ (Mild) and suprapubicly (Moderate) and Guarding due to palpation present (GI) (Voluntary guarding diffusely) Auscultation: normal bowel sounds General: Yes no CVA tenderness Back/Spine/Pelvis Back: no CVA tenderness Skin General skin exam: no rashes or lesions noted Neuro Cranial nerves: Yes CN's II-XII intact bilaterally and Yes Equal, round and reactive pupils present Cognition (Neuro): normal cognition Motor exam (neuro): 5/5 motor strength present throughout Extrem General: Yes normal to inspection Psych Appearance: grossly normal Speech and movement: Normal speech and movement present Affect: normal affect Attitude: cooperative Thought process: Normal thought process present Thought content: Normal thought content present Course Course Course Narrative: 56-year-old female who presents emergency department for evaluation of abdominal pain, nausea, vomiting, diarrhea x6 days. Vital signs revealed an elevated blood pressure of 156/85 otherwise unremarkable. Abdominal exam revealed a distended abdomen with significant right lower quadrant tenderness but she also has tenderness palpation of her lower abdomen and right upper quadrant. I did order laboratory evaluation including a CT scan of the abdomen pelvis with IV contrast to rule out possible perforated appendix versus bowel obstruction. Patient was ordered to get Toradol 15 mg and morphine 4 mg IV for pain and Zofran 4 mg IV for her nausea and vomiting. She was also ordered to get normal saline x1 L IV. 1144: WBC was normal 7400, differential revealed 70% bands which was elevated.Potassium low 2.9, chloride low 93, BUN elevated 20, creatinine normal 0.68. Glucose elevated 123. AST and ALT elevated 36 and 67. Lipase elevated 95. Lactic acid normal 1.0. Urinalysis positive for protein. Microscopic field 10-20 wbc's. Urine tox screen negative. Alcohol below detectable limits. CT scan abdomen pelvis with IV contrast interpreted by the radiologist as follows: GASTROINTESTINAL TRACT/PERITONEAL CAVITY: Approximately 9.2 x 7.6 x 5.3 cm region of apparently loculated fluid within the cul-de-sac. Associated enhancement of surrounding peritoneum, suggesting peritonitis. This collection appears to communicate with the distal end of the vermiform appendix. The appendix itself appears to demonstrate a mildly thickened wall, and measures 1.0 cm in diameter. Additional regions of peritoneal fluid in the mesentery and paracolic gutter which also probably demonstrate mild surrounding peritoneal enhancement. The mesenteric collection contains free air (image 64, series 3). Multiple loops of mildly dilated small bowel with air-fluid levels, predominantly located in the left upper quadrant. Long segment concentric thickening of the distal ileum with associated target sign. Colonic diverticula without evidence of diverticulitis. ABDOMINAL WALL: No significant hernia is appreciated. LYMPH NODES: No evidence of adenopathy by size criteria. VASCULAR: Unremarkable PELVIC VISCERA: Unremarkable OSSEOUS STRUCTURES: Mild compression deformity of L1, age indeterminate. IMPRESSION: Findings, as above, consistent with perforated appendicitis. Findings suggesting left upper quadrant small bowel ileus. Suspect superimposed Crohn's disease. Dictated By:Charlie Flaherty The patient did get some relief with the above pain medications but did require a 2nd dose of morphine 4 mg IVP. Patient has a perforated appendix and possible Crohn's disease as well. Patient was ordered to get Zosyn 4.5 g IV. I will discuss the patient's presentation and CT scan findings with the on-call general surgeon. 1209: I did discuss the patient's presentation with the covering surgeon patient will be admitted to his service. He requested that consult GI for evaluation for possible from his disease. MDM - Abdominal Pain Medical Records Attestation: I reviewed the patient's medical records. Lab Data Attestation: I reviewed the patient's lab results. Result diagrams: 03/25/22 08:30 03/25/22 08:30 Labs: Lab Results 03/25/22 03/25/22 03/25/22 Range/Units 08:30 08:30 08:30 WBC 7.4 (4.8-10.8) X10*3/uL RBC 5.30 (4.20-5.50) X10*6/uL Hgb 15.7 (12.0-16.0) g/dl Hct 44.6 (37.0-47.0) % MCV 84.2 (80.0-98.0) fL MCH 29.6 (27.0-33.0) pg MCHC 35.2 H (31.0-35.0) g/dl RDW 12.1 (11.0-16.0) % Plt Count 372 D (160-400) X10*3/uL MPV 9.4 (9.4-12.3) fL Immature Gran % (Auto) Cancelled Neut % (Auto) Cancelled Lymph % (Auto) Cancelled [place] % (Auto) Cancelled Eos % (Auto) Cancelled Baso % (Auto) Cancelled Lymph # (Auto) Cancelled [place] # (Auto) Cancelled Eos # (Auto) Cancelled Baso # (Auto) Cancelled Abs Immat Gran (auto) Cancelled Absolute Neuts (auto) Cancelled Absolute Nucleated RBC 0.000 (0.0-0.012) X10*3/uL Nucleated RBC % (auto) 0.0 (0.0-0.2) /100WBC Neutrophils % (Manual) 61 (45-73) % Band Neutrophils % 17 H (3-5) % Lymphocytes % (Manual) 15 L (20-40) % Monocytes % (Manual) 6 (2-11) % Basophils % (Manual) 1 (0-2) % Abs Neuts (Manual) 5.8 (2.0-8.3) X10*3/uL Lymphocytes # (Manual) 1.1 L (1.2-4.9) X10*3/uL Monocytes # (Manual) 0.4 (0.1-1.2) X10*3/uL Basophils # (Manual) 0.1 (0.0-0.2) X10*3/uL Toxic Vacuolation PRESENT Platelet Estimate NORMAL (NORMAL) Plt Morphology Comment NORMAL RBC Morphology NOTED Acanthocytes (Spur) 1+ (0-2) /OIF PT 10.6 (10.0-13.1) SEC INR 0.9 (0.9-1.1) APTT 23.4 L (26.0-36.4) SEC Sodium 136 (135-145) mmol/L Potassium 2.9 L D (3.3-5.1) mmol/L Chloride 93 L (96-108) mmol/L Carbon Dioxide 25 (22-29) mmol/L Anion Gap 21 H (12-20) BUN 20 H D (9-16) mg/dL Creatinine 0.68 (0.5-1.4) mg/dL Estim Creat Clear Calc 89.5 Estimated GFR > 60 Random Glucose 123 H (60-115) mg/dL Lactic Acid (0.5-2.0) mmol/L Calcium 9.2 (8.4-10.2) mg/dL Magnesium 2.0 (1.6-2.6) mg/dL Total Bilirubin 0.9 (0.0-1.0) mg/dL AST 36 H (5-31) U/L ALT 67 H (0-31) U/L Alkaline Phosphatase 91 D (39-117) U/L Total Protein 6.4 L (6.5-8.0) g/dL Albumin 3.7 (3.5-5.0) g/dL Lipase 95 H (8-78) U/L Urine Color Urine Appearance Urine pH (5.0-9.0) Ur Specific [place] (1.005-1.025) Urine Protein (Neg-Trace) mg/dL Urine Glucose (UA) (Negative) mg/dL Urine Ketones (Negative) mg/dL Urine Blood (Negative) Urine Nitrite (Negative) Ur Leukocyte Esterase (Negative) Urine RBC (0-2) /HPF Urine WBC (0-5) /HPF Ur Squamous Epith Cells (0-2) /HPF Urine Bacteria (None Seen) Hyaline Casts (0-2) /LPF Granular Casts Urine Opiates Screen (Not Detect) Urine Fentanyl Screen (Not Detect) Ur Barbiturates Screen (Not Detect) Ur Phencyclidine Scrn (Not Detect) Ur Amphetamines Screen (Not Detect) U Benzodiazepines Scrn (Not Detect) Urine Cocaine Screen (Not Detect) U Marijuana (THC) Screen (Not Detect) Ethyl Alcohol < 10 mg/dL COVID-19 ([facility]) (Negative) COVID-19 Clin Com Influenza Type A (GREG) Influenza Type A (PCR) (Negative) Influenza Type B (GREG) Influenza Type B (PCR) (Negative) Influenza A & B Note RSV RNA Qual (PCR) (Negative) SARS-CoV-2 RNA (RT-PCR) (Negative) 03/25/22 03/25/22 03/25/22 Range/Units 08:30 08:42 08:42 WBC (4.8-10.8) X10*3/uL RBC (4.20-5.50) X10*6/uL Hgb (12.0-16.0) g/dl Hct (37.0-47.0) % MCV (80.0-98.0) fL MCH (27.0-33.0) pg MCHC (31.0-35.0) g/dl RDW (11.0-16.0) % Plt Count (160-400) X10*3/uL MPV (9.4-12.3) fL Immature Gran % (Auto) Neut % (Auto) Lymph % (Auto) [place] % (Auto) Eos % (Auto) Baso % (Auto) Lymph # (Auto) [place] # (Auto) Eos # (Auto) Baso # (Auto) Abs Immat Gran (auto) Absolute Neuts (auto) Absolute Nucleated RBC (0.0-0.012) X10*3/uL Nucleated RBC % (auto) (0.0-0.2) /100WBC Neutrophils % (Manual) (45-73) % Band Neutrophils % (3-5) % Lymphocytes % (Manual) (20-40) % Monocytes % (Manual) (2-11) % Basophils % (Manual) (0-2) % Abs Neuts (Manual) (2.0-8.3) X10*3/uL Lymphocytes # (Manual) (1.2-4.9) X10*3/uL Monocytes # (Manual) (0.1-1.2) X10*3/uL Basophils # (Manual) (0.0-0.2) X10*3/uL Toxic Vacuolation Platelet Estimate (NORMAL) Plt Morphology Comment RBC Morphology Acanthocytes (Spur) /OIF PT (10.0-13.1) SEC INR (0.9-1.1) APTT (26.0-36.4) SEC Sodium (135-145) mmol/L Potassium (3.3-5.1) mmol/L Chloride (96-108) mmol/L Carbon Dioxide (22-29) mmol/L Anion Gap (12-20) BUN (9-16) mg/dL Creatinine (0.5-1.4) mg/dL Estim Creat Clear Calc Estimated GFR Random Glucose (60-115) mg/dL Lactic Acid 1.0 (0.5-2.0) mmol/L Calcium (8.4-10.2) mg/dL Magnesium (1.6-2.6) mg/dL Total Bilirubin (0.0-1.0) mg/dL AST (5-31) U/L ALT (0-31) U/L Alkaline Phosphatase (39-117) U/L Total Protein (6.5-8.0) g/dL Albumin (3.5-5.0) g/dL Lipase (8-78) U/L Urine Color Urine Appearance Urine pH (5.0-9.0) Ur Specific [place] (1.005-1.025) Urine Protein (Neg-Trace) mg/dL Urine Glucose (UA) (Negative) mg/dL Urine Ketones (Negative) mg/dL Urine Blood (Negative) Urine Nitrite (Negative) Ur Leukocyte Esterase (Negative) Urine RBC (0-2) /HPF Urine WBC (0-5) /HPF Ur Squamous Epith Cells (0-2) /HPF Urine Bacteria (None Seen) Hyaline Casts (0-2) /LPF Granular Casts Urine Opiates Screen (Not Detect) Urine Fentanyl Screen (Not Detect) Ur Barbiturates Screen (Not Detect) Ur Phencyclidine Scrn (Not Detect) Ur Amphetamines Screen (Not Detect) U Benzodiazepines Scrn (Not Detect) Urine Cocaine Screen (Not Detect) U Marijuana (THC) Screen (Not Detect) Ethyl Alcohol mg/dL COVID-19 ([facility]) Negative (Negative) COVID-19 Clin Com See Note Influenza Type A (GREG) Cancelled Influenza Type A (PCR) (Negative) Influenza Type B (GREG) Cancelled Influenza Type B (PCR) (Negative) Influenza A & B Note Cancelled RSV RNA Qual (PCR) (Negative) SARS-CoV-2 RNA (RT-PCR) (Negative) 03/25/22 03/25/22 03/25/22 Range/Units 08:42 09:12 09:12 WBC (4.8-10.8) X10*3/uL RBC (4.20-5.50) X10*6/uL Hgb (12.0-16.0) g/dl Hct (37.0-47.0) % MCV (80.0-98.0) fL MCH (27.0-33.0) pg MCHC (31.0-35.0) g/dl RDW (11.0-16.0) % Plt Count (160-400) X10*3/uL MPV (9.4-12.3) fL Immature Gran % (Auto) Neut % (Auto) Lymph % (Auto) [place] % (Auto) Eos % (Auto) Baso % (Auto) Lymph # (Auto) [place] # (Auto) Eos # (Auto) Baso # (Auto) Abs Immat Gran (auto) Absolute Neuts (auto) Absolute Nucleated RBC (0.0-0.012) X10*3/uL Nucleated RBC % (auto) (0.0-0.2) /100WBC Neutrophils % (Manual) (45-73) % Band Neutrophils % (3-5) % Lymphocytes % (Manual) (20-40) % Monocytes % (Manual) (2-11) % Basophils % (Manual) (0-2) % Abs Neuts (Manual) (2.0-8.3) X10*3/uL Lymphocytes # (Manual) (1.2-4.9) X10*3/uL Monocytes # (Manual) (0.1-1.2) X10*3/uL Basophils # (Manual) (0.0-0.2) X10*3/uL Toxic Vacuolation Platelet Estimate (NORMAL) Plt Morphology Comment RBC Morphology Acanthocytes (Spur) /OIF PT (10.0-13.1) SEC INR (0.9-1.1) APTT (26.0-36.4) SEC Sodium (135-145) mmol/L Potassium (3.3-5.1) mmol/L Chloride (96-108) mmol/L Carbon Dioxide (22-29) mmol/L Anion Gap (12-20) BUN (9-16) mg/dL Creatinine (0.5-1.4) mg/dL Estim Creat Clear Calc Estimated GFR Random Glucose (60-115) mg/dL Lactic Acid (0.5-2.0) mmol/L Calcium (8.4-10.2) mg/dL Magnesium (1.6-2.6) mg/dL Total Bilirubin (0.0-1.0) mg/dL AST (5-31) U/L ALT (0-31) U/L Alkaline Phosphatase (39-117) U/L Total Protein (6.5-8.0) g/dL Albumin (3.5-5.0) g/dL Lipase (8-78) U/L Urine Color Dark Yellow Urine Appearance Cloudy Urine pH 6.0 (5.0-9.0) Ur Specific [place] 1.025 (1.005-1.025) Urine Protein 100 (2+) H (Neg-Trace) mg/dL Urine Glucose (UA) Negative (Negative) mg/dL Urine Ketones 40 (Negative) mg/dL Urine Blood Negative (Negative) Urine Nitrite Negative (Negative) Ur Leukocyte Esterase Negative (Negative) Urine RBC 11-20 H (0-2) /HPF Urine WBC 0-5 (0-5) /HPF Ur Squamous Epith Cells 0-2 (0-2) /HPF Urine Bacteria None Seen (None Seen) Hyaline Casts 6-10 (0-2) /LPF Granular Casts Present Urine Opiates Screen Not Detected (Not Detect) Urine Fentanyl Screen Not Detected (Not Detect) Ur Barbiturates Screen Not Detected (Not Detect) Ur Phencyclidine Scrn Not Detected (Not Detect) Ur Amphetamines Screen Not Detected (Not Detect) U Benzodiazepines Scrn Not Detected (Not Detect) Urine Cocaine Screen Not Detected (Not Detect) U Marijuana (THC) Screen Not Detected (Not Detect) Ethyl Alcohol mg/dL COVID-19 ([facility]) (Negative) COVID-19 Clin Com Influenza Type A (GREG) Influenza Type A (PCR) NEGATIVE (Negative) Influenza Type B (GREG) Influenza Type B (PCR) NEGATIVE (Negative) Influenza A & B Note RSV RNA Qual (PCR) NEGATIVE (Negative) SARS-CoV-2 RNA (RT-PCR) NEGATIVE (Negative) ECG Data Attestation: I personally reviewed and interpreted this ECG as follows: Interpretation: 1409: Sinus tachycardia 110, normal MA interval, QRS duration, slightly prolonged QRS at 479 milliseconds, no ST segment elevation, no ST segment depression, no T-wave abnormalities, no PACs, no PVCs, poor R-wave progression V1 through V3, no old EKG for comparison. Critical Care Time Critical Care Time Critical Care Time: Yes Total Critical Care Time: 60 Attestation: Critical Care: The patient was critically ill with a high probability of imminent or life threatening deterioration. I spent greater than 30 minutes of discontinuous time evaluating the patient,delivering critical care at the bedside, discussing and evaluating pertinent data with consultants. Critical care time does not include time spent performing separately billable procedures or teaching. Total time spent performing critical care was 60 minutes. Discharge Plan Discharge Clinical Impression: Ruptured appendix, Colitis, Acute hypokalemia Patient Disposition: Admitted As Inpatient
[2022-03-25] MEDS: Ketorolac Tromethamine 15 MG/ML VIAL IVPUSH (08:45)
[2022-03-25] MEDS: Morphine Sulfate 4 MG/ML CARTRIDGE IVPUSH ×3 (08:45→12:28)
[2022-03-25] MEDS: 0.9 % Sodium Chloride 1,000 ML 999 ML IV (08:46)
[2022-03-25] MEDS: ondansetron HCL 4 MG/2 ML VIAL IVPUSH ×2 (08:46→18:02)
[2022-03-25 08:48] LABS: Hematocrit 44.6 % (37.0-47.0); Hemoglobin 15.7 g/dl (12.0-16.0); Mean Corpuscular HGB Conc 35.2 g/dl (31.0-35.0); Mean Corpuscular Hemoglobin 29.6 pg (27.0-33.0); Mean Corpuscular Volume 84.2 fL (80.0-98.0); Mean Platelet Volume 9.4 fL (9.4-12.3); Platelet Count 372 X10*3/uL (160-400); Red Cell Distribution Width 12.1 % (11.0-16.0); White Blood Count 7.4 X10*3/uL (4.8-10.8)
[2022-03-25 09:05] LABS: INTERNATIONAL NORM RATIO 0.9 (0.9-1.1); Prothrombin Time 10.6 SEC (10.0-13.1)
[2022-03-25 09:09] LABS: COVID-19 Test Negative (Negative)
[2022-03-25 09:11] LABS: Neutrophils Percent Manual 61 % (45-73)
[2022-03-25 09:12] LABS: Alanine Aminotransferase 67 U/L (0-31); Albumin Level 3.7 g/dL (3.5-5.0); Alkaline Phosphatase 91 U/L (39-117); Anion Gap 21 (12-20); Aspartate Amino Transferase 36 U/L (5-31); Bilirubin Total 0.9 mg/dL (0.0-1.0); Blood Urea Nitrogen 20 mg/dL (9-16); Calcium 9.2 mg/dL (8.4-10.2); Carbon Dioxide 25 mmol/L (22-29); Chloride 93 mmol/L (96-108); Creatinine Clr Calc Pharmacy 89.5; Estimated Glomerular Filt Rate > 60; Ethanol < 10 mg/dL; Glucose Random 123 mg/dL (60-115); Lipase 95 U/L (8-78); Potassium 2.9 mmol/L (3.3-5.1); Sodium 136 mmol/L (135-145); Total Protein 6.4 g/dL (6.5-8.0)
--- NOTE | 2022-03-25 09:13 | PC.NURSE ---
patient straight catheterized for 300ml of dark yellow urine . tolerated well . urine sample sent to lab . patient medicated as ordered by provider . patient aware of plan of care .
[2022-03-25 09:26] LABS: Acanthocytes 1+ (0-2) /OIF; Band Neutrophils Percent 17 % (3-5); Basophils Abs Manual 0.1 X10*3/uL (0.0-0.2); Basophils Percent Manual 1 % (0-2); Lymphocytes Absolute Manual 1.1 X10*3/uL (1.2-4.9); Lymphocytes Percent Manual 15 % (20-40); Monocytes Absolute Manual 0.4 X10*3/uL (0.1-1.2); Monocytes Percent Manual 6 % (2-11); Neutrophils Absolute Manual 5.8 X10*3/uL (2.0-8.3); RBC Morphology NOTED
[2022-03-25 09:27] LABS: Toxic Vacuolation PRESENT
[2022-03-25 09:28] LABS: Platelet Estimate NORMAL (NORMAL); Platelet Morphology Comment NORMAL
[2022-03-25 09:29] LABS: Partial Thromboplastin Time 23.4 SEC (26.0-36.4)
[2022-03-25 09:31] LABS: Appearance Urine Cloudy; Color Urine Dark Yellow; Glucose Urine UA Negative (Negative); Leukocyte Esterase Urine Negative (Negative); Nitrite Urine Negative (Negative); Specific Gravity - Urine 1.025 (1.005-1.025); UMIC TRIGGER UACC YES; Urine Blood Negative (Negative); Urine Ketones 40 mg/dL (Negative); Urine Protein 100 (2+) mg/dL (Neg-Trace)
[2022-03-25 09:41] LABS: Bacteria Urine None Seen (None Seen); Granular Casts Urine Present; Squamous Epithelial Cell Urine 0-2 /HPF (0-2); WBC Urine 0-5 /HPF (0-5)
[2022-03-25 09:45] LABS: Amphetamine Screen Urine Not Detected (Not Detect); Barbiturates, Urine Not Detected (Not Detect); Benzodiazepines Screen Urine Not Detected (Not Detect); Cannabinoid Screen Urine Not Detected (Not Detect); Cocaine Screen Urine Not Detected (Not Detect); Fentanyl, urine Not Detected (Not Detect); Opiate Screen Urine Not Detected (Not Detect); Phencyclidine Screen Urine Not Detected (Not Detect)
[2022-03-25] MEDS: iohexoL 350 MG/ML 100 ML INFUS..BTL 85 ML IV (09:54)
[2022-03-25 09:59] LABS: Influenza A PCR NEGATIVE (Negative); Influenza B PCR NEGATIVE (Negative); Resp Syncy Virus RNA Qual PCR NEGATIVE (Negative); SARS COV2 PCR INHOUSE NEGATIVE (Negative)
[2022-03-25] MEDS: Potassium Chloride/H20 10 MEQ/100 ML PIGGYBACK 100 MEQ IV ×2 (10:37→12:10)
[2022-03-25 11:50] VITALS: BP 154/83; PULSE 107; RESP 22; TEMP 36.9; O2SAT 977
--- NOTE | 2022-03-25 12:25 | PC.NURSE ---
Surgery at bedside for consult on . patient aware of plan of care .
--- NOTE | 2022-03-25 12:39 | PM.HPGS ---
History of Present Illness History of Present Illness Date of Service: 03/25/22 Chief complaint: abd pain/constipation Narrative: Odette Denis is a 56 year old female who is seen at the request of Dr. Garcia in the emergency department because of abdominal pain and a perforated appendix versus contained perforation regarding Crohn's disease. Patient is seen in ER [facility] with her at the bedside. She reports that last , she started feeling poorly and having right lower quadrant cramping that caused vomiting and also diarrhea. She reports a vague distant history of colitis and notes there was a family history of bathroom problems which she states refers to diarrhea. She denies any recent rectal bleeding, unexplained weight loss or GI malignancy in the immediate family. She does not recognize the term Crohn's or inflammatory bowel disease or ulcerative colitis affecting any of her first-degree relatives. She does note her paternal grandfather at an early age, possibly from colon cancer, however she is not sure. The patient notes that she is having difficulty voiding her urine is well due to the abdominal pain and cramping. CT is interpreted as a perforated appendix with concomitant ileal Crohn's disease, so I was asked to evaluate her and help direct her care. The patient notes that she usually drinks 2-4 drinks of gin each evening, however she states that she has not had any alcohol since last and denies feeling any shakes & denies any withdrawal type symptoms ever. Review of Systems Review of Systems: Yes all other systems are reviewed and are negative Constitutional: Constitutional: Reports as per [facility] Past Medical History Medical History Chronic pain Social History Social History Patient Tobacco Use Status: Never used Tobacco Advance Directives: No Advance Directives Information Provided: No Patient : No Meds Allergies Allergy/AdvReac Type Severity Reaction Status Date / Time No Known Allergies Allergy Verified 06/05/21 08:46 Home Medications Medication Instructions Recorded Confirmed Last Taken Type duloxetine 60 mg capsule,delayed 1 cap PO DAILY 03/25/22 Unknown History release Physical Exam Vital Signs: Vital Signs: Last Vital Signs Temp 98.4 F 03/25/22 11:50 Pulse 107 H 03/25/22 11:50 Resp 22 H 03/25/22 11:50 BP 154/83 H 03/25/22 11:50 Pulse Ox 977 H 03/25/22 11:50 O2 Del Method 03/25/22 11:50 BMI result Body Mass Index 29.2 The patient is non-toxic & in good spirits NC/AT, PERRLA, EOMI Mood, affect & judgment all appear appropriate Sclera anicteric conjunctiva pink and moist Oropharynx is clear with no aphthous ulcers, Mallampati class 2, mucous membranes moist Neck is supple with no masses, adenopathy or bruits Thyroid is nontender and free of dominant masses Heart is regular, normal S1-S2 no rubs or murmurs Lungs are clear and equal anteriorly with no audible wheezing, rubs or dullness to percussion No CVA tenderness present Abdomen is overweight with no demonstrable hernias. She has right lower quadrant and suprapubic tenderness with mild peritoneal irritation to percussion. No HSM, rebound, rigidity, guarding, masses or bruits are present. Rectal exam & pelvis exam are deferred Skin has good turgor and is free of rashes Extremities free of cyanosis clubbing edema Results Results Labs: Short CBC 03/25/22 Range/Units 08:30 WBC 7.4 (4.8-10.8) X10*3/uL Hgb 15.7 (12.0-16.0) g/dl Hct 44.6 (37.0-47.0) % Plt Count 372 D (160-400) X10*3/uL BMP 03/25/22 08:30 Sodium 136 Potassium 2.9 L D Chloride 93 L Carbon Dioxide 25 BUN 20 H D Creatinine 0.68 Calcium 9.2 Liver Function 03/25/22 Range/Units 08:30 Total Bilirubin 0.9 (0.0-1.0) mg/dL AST 36 H (5-31) U/L ALT 67 H (0-31) U/L Alkaline Phosphatase 91 D (39-117) U/L Albumin 3.7 (3.5-5.0) g/dL Urine 03/25/22 Range/Units 09:12 Urine Color Dark Yellow Urine Appearance Cloudy Urine pH 6.0 (5.0-9.0) Ur Specific [place] 1.025 (1.005-1.025) Urine Protein 100 (2+) H (Neg-Trace) mg/dL Urine Glucose (UA) Negative (Negative) mg/dL Abdomen CT scan report/results: report reviewed and image reviewed CT scan - pelvis: report reviewed and image reviewed Assessment and Plan (1) Ruptured appendix: Status: Acute (2) Colitis: Status: Acute (3) Acute hypokalemia: Status: Acute (4) Chronic pain: Status: Acute (5) Abnormal CT of the abdomen: Status: Acute Plan The patient is surprisingly stable and relatively comfortable, consequently, I will admit her and discuss percutaneous drainage by IR and antibiotic therapy with plans for interval testing to exclude inflammatory bowel disease versus perforated appendicitis. Explained to the patient and her that this option may fail in which case laparoscopic intervention may be required. However, given the number of days and extent of the fluid present, the sets to the complexity and potential complications of her case. Patient reports that she has not been drinking alcohol since last , but will ask the hospitalist service for input regarding her medical issues and alcohol withdraw & chronic benzodiazipine use (pt reports 10mg TID) Will coordinate with Gastroenterology. Dr. Sheldon to see the patient re: ?Crohn's. Quality Stroke Does the patient have a stroke diagnosis?: No VTE Prior VTE?: No VTE Risk Level:: Surgical - moderate VTE Device Contraindication: N/A - Device Ordered VTE Drug Contraindication: N/A - Med Ordered Procedures Date of Service Date of Service: 03/25/22
[2022-03-25] MEDS: Piperacillin Sodium/Tazobactam 4.5 GM in 0.9 % Sodium Chloride 100 ML IV (13:12)
--- NOTE | 2022-03-25 13:24 | HO.PM.IMCN ---
History of Present Illness Data of Consult Service Date: 03/25/22 Requesting physician: Raul Bryan Primary Care Provider: Unknown Physician HPI Reason for consult: alcohol use, benzo use 56 year old female with history of fibromyalgia, anxiety, alcohol abuse, and former smoker with 15 pack year history quit 30 years ago admitted to general surgery for appendicitis with rupture with medical consult placed for management of possible wtihdrawal. The patient has been experiencing LLQ pain, nausea/vomiting, decreased urine output x5 days and has been unable to tolerate PO since. She consumes 2-3 hard alcohol beverages daily, last drink was 5 days ago due to PO intolerance. She denies any tremors, headache, confusion. Does endorse n/v as above. History of valium use for acute pain, but no use in the last 10 months. Review of Systems Review of Systems: General: No fevers, malaise, unintentional weight loss Cardiovascular: No chest pain, palpitations, or leg edema Respiratory: No shortness of breath, wheezing, cough GI: +llq pain, +n/v, +decrease PO intake. No diarrhea, constipation, melena, hematochezia : +decreased urine output. No dysuria, hematuria Neuro: No headaches, weakness, paresthesias Skin: No rashes or lesions PMFSH Medical History Alcohol abuse Anxiety Chronic pain Fibromyalgia Family History Mother Diabetes Cardiomyopathy Father Malignant neoplasm of lung metastatic to brain Social History Household Members: Family Housing: Apartment Do you presently have visiting nurse or other home services: No Alcohol intake: current Alcohol intake frequency: 3 or more drinks per day Alcohol type: hard liquor Patient Tobacco Use Status: Former Tobacco user Tobacco use type: Cigarette Cigarette Packs Per Day: 20 Years Smoked: 12 Substance Use Type: Marijuana Meds Allergies Allergy/AdvReac Type Severity Reaction Status Date / Time No Known Allergies Allergy Verified 06/05/21 08:46 Active Medications: Current Medications Hydromorphone HCl (Hydromorphone Hcl 1 Mg/Ml Syringe) 0.5 mg IVPUSH Q4H PRN; Protocol PRN Reason: Pain, Severe (Pain Scale 7-10) Piperacillin Sod/Tazobactam (Sod 3.375 gm/ Sodium Chloride) 50 mls @ 100 mls/hr IV Q6H [facility] Ondansetron HCl (Ondansetron Hcl 4 Mg/2 Ml Vial) 4 mg IVPUSH Q6H PRN PRN Reason: Nausea and Vomiting Sodium Chloride (0.9 % Sodium Chloride Flush 3 Ml Syringe) 3 ml IVFLUSH QSHIFT MATTHEW Home Medications Medication Instructions Recorded Confirmed Last Taken Type duloxetine 60 mg capsule,delayed 1 cap PO DAILY 03/25/22 03/25/22 03/24/22 History release Physical Exam Vital Signs and Narrative: Vital Signs: Last Vital Signs Temp 98.4 F 03/25/22 11:50 Pulse 107 H 03/25/22 11:50 Resp 22 H 03/25/22 11:50 BP 154/83 H 03/25/22 11:50 Pulse Ox 977 H 03/25/22 11:50 O2 Del Method 03/25/22 11:50 BMI result Body Mass Index 29.2 Constitutional - Awake and Alert, No apparent distress Eyes - PERRLA, EOMI Cardiovascular - S1S2, tachcyardic, regular rhythm, No edema Respiratory - Normal lung expansion, Normal respiratory effort, No respiratory distress, CTA bilaterally Gastrointestinal - Deferred Extremities - no calf tenderness bilaterally, no swelling Skin - Warm/Dry Neurological - Alert & oriented x3, No focal deficit Psychological - Appropriate affect Results Labs CBC and Chem 7: 03/26/22 06:18 03/26/22 06:18 Labs: Laboratory Results - last 24 hr 03/25/22 03/25/22 03/25/22 08:30 08:30 08:30 MCV 84.2 MCH 29.6 MCHC 35.2 H RDW 12.1 Plt Count 372 D MPV 9.4 Immature Gran % (Auto) Cancelled Neut % (Auto) Cancelled Lymph % (Auto) Cancelled [place] % (Auto) Cancelled Eos % (Auto) Cancelled Baso % (Auto) Cancelled Lymph # (Auto) Cancelled [place] # (Auto) Cancelled Eos # (Auto) Cancelled Baso # (Auto) Cancelled Abs Immat Gran (auto) Cancelled Absolute Neuts (auto) Cancelled Absolute Nucleated RBC 0.000 Nucleated RBC % (auto) 0.0 Neutrophils % (Manual) 61 Band Neutrophils % 17 H Lymphocytes % (Manual) 15 L Monocytes % (Manual) 6 Basophils % (Manual) 1 Abs Neuts (Manual) 5.8 Lymphocytes # (Manual) 1.1 L Monocytes # (Manual) 0.4 Basophils # (Manual) 0.1 Toxic Vacuolation PRESENT Platelet Estimate NORMAL Plt Morphology Comment NORMAL RBC Morphology NOTED Acanthocytes (Spur) 1+ (0-2) PT 10.6 INR 0.9 APTT 23.4 L Anion Gap 21 H Estim Creat Clear Calc 89.5 Estimated GFR > 60 Random Glucose 123 H Lactic Acid Calcium 9.2 Total Bilirubin 0.9 AST 36 H ALT 67 H Alkaline Phosphatase 91 D Total Protein 6.4 L Albumin 3.7 Lipase 95 H Urine Color Urine Appearance Urine pH Ur Specific [place] Urine Protein Urine Glucose (UA) Urine Ketones Urine Blood Urine Nitrite Ur Leukocyte Esterase Urine RBC Urine WBC Ur Squamous Epith Cells Urine Bacteria Hyaline Casts Granular Casts Urine Opiates Screen Urine Fentanyl Screen Ur Barbiturates Screen Ur Phencyclidine Scrn Ur Amphetamines Screen U Benzodiazepines Scrn Urine Cocaine Screen U Marijuana (THC) Screen Ethyl Alcohol < 10 COVID-19 (CHRIS) COVID-19 Clin Com Influenza Type A (GREG) Influenza Type A (PCR) Influenza Type B (GREG) Influenza Type B (PCR) Influenza A & B Note RSV RNA Qual (PCR) SARS-CoV-2 RNA (RT-PCR) 03/25/22 03/25/22 03/25/22 08:30 08:42 08:42 MCV MCH MCHC RDW Plt Count MPV Immature Gran % (Auto) Neut % (Auto) Lymph % (Auto) [place] % (Auto) Eos % (Auto) Baso % (Auto) Lymph # (Auto) [place] # (Auto) Eos # (Auto) Baso # (Auto) Abs Immat Gran (auto) Absolute Neuts (auto) Absolute Nucleated RBC Nucleated RBC % (auto) Neutrophils % (Manual) Band Neutrophils % Lymphocytes % (Manual) Monocytes % (Manual) Basophils % (Manual) Abs Neuts (Manual) Lymphocytes # (Manual) Monocytes # (Manual) Basophils # (Manual) Toxic Vacuolation Platelet Estimate Plt Morphology Comment RBC Morphology Acanthocytes (Spur) PT INR APTT Anion Gap Estim Creat Clear Calc Estimated GFR Random Glucose Lactic Acid 1.0 Calcium Total Bilirubin AST ALT Alkaline Phosphatase Total Protein Albumin Lipase Urine Color Urine Appearance Urine pH Ur Specific [place] Urine Protein Urine Glucose (UA) Urine Ketones Urine Blood Urine Nitrite Ur Leukocyte Esterase Urine RBC Urine WBC Ur Squamous Epith Cells Urine Bacteria Hyaline Casts Granular Casts Urine Opiates Screen Urine Fentanyl Screen Ur Barbiturates Screen Ur Phencyclidine Scrn Ur Amphetamines Screen U Benzodiazepines Scrn Urine Cocaine Screen U Marijuana (THC) Screen Ethyl Alcohol COVID-19 (CHRIS) Negative COVID-19 Clin Com See Note Influenza Type A (GREG) Cancelled Influenza Type A (PCR) Influenza Type B (GREG) Cancelled Influenza Type B (PCR) Influenza A & B Note Cancelled RSV RNA Qual (PCR) SARS-CoV-2 RNA (RT-PCR) 03/25/22 03/25/22 03/25/22 08:42 09:12 09:12 MCV MCH MCHC RDW Plt Count MPV Immature Gran % (Auto) Neut % (Auto) Lymph % (Auto) [place] % (Auto) Eos % (Auto) Baso % (Auto) Lymph # (Auto) [place] # (Auto) Eos # (Auto) Baso # (Auto) Abs Immat Gran (auto) Absolute Neuts (auto) Absolute Nucleated RBC Nucleated RBC % (auto) Neutrophils % (Manual) Band Neutrophils % Lymphocytes % (Manual) Monocytes % (Manual) Basophils % (Manual) Abs Neuts (Manual) Lymphocytes # (Manual) Monocytes # (Manual) Basophils # (Manual) Toxic Vacuolation Platelet Estimate Plt Morphology Comment RBC Morphology Acanthocytes (Spur) PT INR APTT Anion Gap Estim Creat Clear Calc Estimated GFR Random Glucose Lactic Acid Calcium Total Bilirubin AST ALT Alkaline Phosphatase Total Protein Albumin Lipase Urine Color Dark Yellow Urine Appearance Cloudy Urine pH 6.0 Ur Specific [place] 1.025 Urine Protein 100 (2+) H Urine Glucose (UA) Negative Urine Ketones 40 Urine Blood Negative Urine Nitrite Negative Ur Leukocyte Esterase Negative Urine RBC 11-20 H Urine WBC 0-5 Ur Squamous Epith Cells 0-2 Urine Bacteria None Seen Hyaline Casts 6-10 Granular Casts Present Urine Opiates Screen Not Detected Urine Fentanyl Screen Not Detected Ur Barbiturates Screen Not Detected Ur Phencyclidine Scrn Not Detected Ur Amphetamines Screen Not Detected U Benzodiazepines Scrn Not Detected Urine Cocaine Screen Not Detected U Marijuana (THC) Screen Not Detected Ethyl Alcohol COVID-19 ([facility]IS) COVID-19 Clin Com Influenza Type A (GREG) Influenza Type A (PCR) NEGATIVE Influenza Type B (GREG) Influenza Type B (PCR) NEGATIVE Influenza A & B Note RSV RNA Qual (PCR) NEGATIVE SARS-CoV-2 RNA (RT-PCR) NEGATIVE Imaging Radiologist's Impressions: Impressions Abdomen/Pelvis CT 03/25/22 09:54 IMPRESSION: Findings, as above, consistent with perforated appendicitis. Findings suggesting left upper quadrant small bowel ileus. Suspect superimposed Crohn's disease. Assessment and Plan (1) Ruptured appendix: Status: Acute Plan 56 year old female with history of fibromyalgia, anxiety, alcohol abuse, and former smoker with 15 pack year history quit 30 years ago admitted to general surgery for appendicitis with rupture with medical consult placed for management of possible wtihdrawal. #Ruptured appendix/petionitis -Plan per general surgery #?Crohns -seen on CT scan. Denies hx IBD -Plan per surgery and GI #Tachycardia -EKG with sinus tachycardia, rate 110, no SCOOTER -Likely anxiety, pain, and dehydration -No other SIRS criteria -Recommend IVF #Alcohol abuse -Consumes 2-3 hard alcohol beverages daily, last drink per patient 5 days ago due to po intolerance -N/v, tachycardia likely secondary to above rather than withdrawal -Pt denies w/d symptoms. Unlikely to be in withdrawal given last etoh beverage 5 days ago -Follow CIWA. Will consider phenobarb if significantly elevated CIWA #Benzo use -no benzos in 10 months (prescribed short-term valium for pain) Thank you for this consult. Will continue to follow.
--- NOTE | 2022-03-25 13:31 | ECG_ITS ---
Test Reason : PERF APPENDIX Blood Pressure : / mmHG Vent. Rate : 110 BPM Atrial Rate : 110 BPM P-R Int : 142 ms QRS Dur : 090 ms QT Int : 354 ms P-R-T Axes : 041 -04 039 degrees QTc Int : 479 ms Sinus tachycardia RSR' or QR pattern in V1 suggests right ventricular conduction delay Nonspecific ST abnormality Abnormal ECG Heart rate has increased Nonspecific ST abnormality is new Referred By: Jose Garcia Electronically Signed By:ARTI SILVERIO MD
--- NOTE | 2022-03-25 13:36 | PHA.MEDREC ---
Pharmacy Consult ? Medication Reconciliation Pharmacy has completed the medication reconciliation.Confirmed medication and last taken date with patient.
--- NOTE | 2022-03-25 13:40 | PM.GICN ---
History of Present Illness Data of Consult Service Date: 03/25/22 Requesting physician: Jose Garcia Primary Care Provider: Unknown Physician HPI Reason for consult: ? Crohn's disease This is a 56-year-old female with past medical history of alcohol use disorder, chronic pain, who presented to the hospital earlier today for severe abdominal pain, fevers and chills. History was obtained from the patient who states that on while she was at work, she developed sudden onset of right lower quadrant abdominal pain that was associated with nausea, diarrhea, fevers and chills. She had to call her to pick her from work. T-max 101 degrees at home. She she initially thought this was a stomach bug and tried to keep herself hydrated at home and took ibuprofen and Tylenol for pain and fevers. Eventually the pain progressed to the point that last night, any time she would move, it would trigger severe pain. She has not been able to keep anything down for at least 2 days and has been vomiting as well as having loose BMs frequently. Notes urine output is not as robust. Does not have any gastrointestinal complaints outside of this episode. No background history of chronic abdominal pain, diarrhea, hematochezia, rashes or joint pain. Does not report any family history of inflammatory bowel disease to include Crohn's disease or ulcerative colitis. Mentions was diagnosed with colon problems when she was young and was told she has a spastic colon is why she has frequent diarrhea. Does not recall being on any medications for this. No family history of colon cancer. Patient is a former smoker. Currently drinks 3-4 drinks of gin or vodka every day. Review of Systems Review of Systems: Yes all other systems are reviewed and are negative PMFSH Past Medical History Medical History Alcohol abuse Anxiety Chronic pain Fibromyalgia Family History Family History Mother Diabetes Cardiomyopathy Father Malignant neoplasm of lung metastatic to brain Social History Social History Alcohol intake: current Alcohol intake frequency: 3 or more drinks per day Alcohol type: hard liquor Patient Tobacco Use Status: Former Tobacco user Tobacco use type: Cigarette Cigarette Packs Per Day: 20 Years Smoked: 12 Smoked in Last 30 Days: No Use of substances other than those prescribed or required for medical reasons: Yes Substance Use Type: Marijuana Substance Use Frequency: Occasionally Last Used Substance: Days (ago) Currently Displaying Signs/Symptoms of Drug Intoxication Withdrawal: No Advance Directives: No Advance Directives Information Provided: No Patient : No Meds Allergies Allergy/AdvReac Type Severity Reaction Status Date / Time No Known Allergies Allergy Verified 06/05/21 08:46 Active Medications: Current Medications Hydromorphone HCl (Hydromorphone Hcl 1 Mg/Ml Syringe) 0.5 mg IVPUSH Q4H PRN; Protocol PRN Reason: Pain, Severe (Pain Scale 7-10) Piperacillin Sod/Tazobactam (Sod 3.375 gm/ Sodium Chloride) 50 mls @ 100 mls/hr IV Q6H MATTHEW Potassium Chloride/Sodium Chloride (Kcl 20 Meq In 0.45% Sod) 20 meq in 1,000 mls @ 100 mls/hr IVCONT .Q10H MATTHEW Ondansetron HCl (Ondansetron Hcl 4 Mg/2 Ml Vial) 4 mg IVPUSH Q6H PRN PRN Reason: Nausea and Vomiting Sodium Chloride (0.9 % Sodium Chloride Flush 3 Ml Syringe) 3 ml IVFLUSH QSHIFT MATTHEW Sodium Chloride (0.9 % Sodium Chloride Flush 3 Ml Syringe) 3 ml IVFLUSH QSHIFT MATTHEW Home Medications Medication Instructions Recorded Confirmed Last Taken Type duloxetine 60 mg capsule,delayed 1 cap PO DAILY 03/25/22 03/25/22 03/24/22 History release Physical Exam Vital Signs: Vital Signs: Last Vital Signs Temp 98.4 F 03/25/22 11:50 Pulse 107 H 03/25/22 11:50 Resp 22 H 03/25/22 11:50 BP 154/83 H 03/25/22 11:50 Pulse Ox 977 H 03/25/22 11:50 O2 Del Method 03/25/22 11:50 BMI result Body Mass Index 29.2 Gen appear: Clammy appearing HEENT: Small pupils Chest: No overt resp distress CVS: Tachycardiac S1/S2, regular Abd: soft, tender to palpation in RLQ> RUQ with guarding and rebound tenderness Psych: Stable affect, answering questions appropriately Neuro: A/Ox3 noted to move all extremities spontaneously Ext: no peripheral edema Results Labs CBC & Chem 7: 03/25/22 08:30 03/25/22 08:30 Labs: Short CBC 03/25/22 Range/Units 08:30 WBC 7.4 (4.8-10.8) X10*3/uL Hgb 15.7 (12.0-16.0) g/dl Hct 44.6 (37.0-47.0) % Plt Count 372 D (160-400) X10*3/uL BMP 03/25/22 08:30 Sodium 136 Potassium 2.9 L D Chloride 93 L Carbon Dioxide 25 BUN 20 H D Creatinine 0.68 Calcium 9.2 Liver Function 03/25/22 Range/Units 08:30 Total Bilirubin 0.9 (0.0-1.0) mg/dL AST 36 H (5-31) U/L ALT 67 H (0-31) U/L Alkaline Phosphatase 91 D (39-117) U/L Albumin 3.7 (3.5-5.0) g/dL Urine 03/25/22 Range/Units 09:12 Urine Color Dark Yellow Urine Appearance Cloudy Urine pH 6.0 (5.0-9.0) Ur Specific [place] 1.025 (1.005-1.025) Urine Protein 100 (2+) H (Neg-Trace) mg/dL Urine Glucose (UA) Negative (Negative) mg/dL Imaging CT scan - abdomen: Attestation: I personally reviewed and interpreted this imaging study as follows: My impression: Thickened appendix with surrounding acute fluid collection. Scant volume of gas noted in this collection. Long segment of distal/terminal ileum noted to be thickened. Assessment and Plan (1) Ruptured appendix: Status: Acute (2) Abnormal CT of the abdomen: Status: Acute Plan Has sepsis secondary to perforated appendicitis (HR 120s, bands 17%, fevers at home). While the long segment of distal ileum does raise suspicion for underlying crohn's pt does not report any underlying chronic GI symptoms before this acute episode. Management of perforated appendix as per surgical team. If pt does not undergo surgical resection during this hospitalisation, can consider ileocolonoscopy as outpatient. Would not recommend checking inflammatory markers for the purpose of screening for IBD as they are expected to be high in the setting of appendicitis. IVF and Abx as per sepsis protocol. Procedures Date of Service Date of Service: 03/25/22
[2022-03-25 14:28] VITALS: BP 156/88; PULSE 125; RESP 18; TEMP 36.9; O2SAT 95
[2022-03-25 14:32] LABS: Potassium 3.4 mmol/L (3.3-5.1)
--- NOTE | 2022-03-25 15:15 | PC.NURSE ---
patient to transport to Short stay for procedure for placement of drainage due to appendix rupture . patient aware of plan of care .
--- NOTE | 2022-03-25 17:04 | HO.RADPN ---
RADIOLOGY Narrative Narrative: 8.5 fr drain placed in pelvic collection. 120 ml cueto purulent fluid aspirated. 8.5 fr drain placed in rlq collection. 60-70 ml cloudy cueto fluid aspirated. Specimens sent for culture.
--- NOTE | 2022-03-25 17:45 | PC.NURSE ---
patient returned to [facility] from procedure . A/ox4 . drains in place in right lower abdomen and right buttock. placed on monitor patient vss breathing even and unlabored . fluids started as ordered . patient aware of plan of care .
[2022-03-25] MEDS: 0.9 % Sodium Chloride Flush 3 ML SYRINGE IVFLUSH ×2 (17:48→22:16)
[2022-03-25] MEDS: KCl 20 mEq in 0.45% Sod 20 MEQ/1,000 ML IV.SOLN 125 MEQ IVCONT ×2 (17:48→20:00)
[2022-03-25] MEDS: Piperacillin Sodium/Tazobactam 3.375 GM in 0.9 % Sodium Chloride 50 ML IV ×2 (17:49→23:29)
[2022-03-25] MEDS: HYDROmorphone HCl 1 MG/ML SYRINGE 0.5 MG IVPUSH ×2 (18:02→22:16)
--- NOTE | 2022-03-25 18:08 | PC.NURSE ---
patient medicated with zofran for nausea . and 0.5 mg of diluided for 6 out of 10 abdominal pain . patient allowed to advance small amount of water and ice chips per surgeon as tolerated . patient aware of plan of care .
--- NOTE | 2022-03-25 18:14 | PM.EVENT ---
Event Note Date of Service: 03/25/22 Event Note: Patient had successful percutaneous drainage. She is tolerating ice chips and I reinforced limiting p.o. intake including ice and water due to the ileus that she has developed due to the infection; over indulgence will lead to vomiting and possible nasogastric tube. Await Gram stain and culture/sensitivities. Continue overnight hydration antibiotics, call me with concerns.
[2022-03-25 19:59] VITALS: BP 157/98; PULSE 125; RESP 25; TEMP 36.5; O2SAT 98
--- NOTE | 2022-03-25 20:22 | PC.NURSE ---
Patient is resting in stretcher. HR 120s, fluids infusing. Patient is afebrile. She denies pain at rest, endorses pain to both drain sites with movement. Both drains are draining milky/green discharge. Ni catheter also remains in place draining clear, yellow urine.
[2022-03-25 23:52] VITALS: BP 157/74; RESP 16; TEMP 36.6; O2SAT 97
[2022-03-26] MEDS: 0.9 % Sodium Chloride Flush 3 ML SYRINGE IVFLUSH ×3 (00:34→20:02)
[2022-03-26] MEDS: ondansetron HCL 4 MG/2 ML VIAL IVPUSH ×3 (02:20→20:02)
[2022-03-26] MEDS: HYDROmorphone HCl 1 MG/ML SYRINGE 0.5 MG IVPUSH ×3 (02:20→08:45)
[2022-03-26 03:01] VITALS: BP 145/75; PULSE 106; RESP 16; TEMP 36.6; O2SAT 97
[2022-03-26] MEDS: Piperacillin Sodium/Tazobactam 3.375 GM in 0.9 % Sodium Chloride 50 ML IV ×3 (04:54→18:25)
[2022-03-26] MEDS: KCl 20 mEq in 0.45% Sod 20 MEQ/1,000 ML IV.SOLN 125 MEQ IVCONT ×2 (05:59→17:03)
[2022-03-26 06:32] LABS: Hematocrit 37.5 % (37.0-47.0); Hemoglobin 13.3 g/dl (12.0-16.0); Mean Corpuscular HGB Conc 35.5 g/dl (31.0-35.0); Mean Corpuscular Volume 87.4 fL (80.0-98.0); Mean Platelet Volume 9.6 fL (9.4-12.3); Platelet Count 339 X10*3/uL (160-400); Red Blood Count 4.29 X10*6/uL (4.20-5.50); Red Cell Distribution Width 12.8 % (11.0-16.0)
[2022-03-26 06:38] LABS: WBC ABN SCTR FOR CBC 1
[2022-03-26 06:59] LABS: Band Neutrophils Percent 24 % (3-5); Lymphocytes Percent Manual 7 % (20-40); Monocytes Percent Manual 4 % (2-11); Neutrophils Percent Manual 65 % (45-73)
[2022-03-26 07:01] LABS: Burr Cells 1+ (0-2) /OIF; Dohle Bodies PRESENT; Platelet Estimate NORMAL (NORMAL); Platelet Morphology Comment NORMAL; RBC Morphology NOTED; Toxic Vacuolation PRESENT
[2022-03-26 07:02] LABS: Anion Gap 18 (12-20); Blood Urea Nitrogen 19 mg/dL (9-16); Calcium 8.5 mg/dL (8.4-10.2); Carbon Dioxide 26 mmol/L (22-29); Chloride 98 mmol/L (96-108); Creatinine Clr Calc Pharmacy 83.3; Estimated Glomerular Filt Rate > 60; Glucose Random 133 mg/dL (60-115); Magnesium 2.1 mg/dL (1.6-2.6); Potassium 3.9 mmol/L (3.3-5.1); Sodium 138 mmol/L (135-145)
[2022-03-26 07:03] LABS: Lymphocytes Absolute Manual 0.9 X10*3/uL (1.2-4.9); Monocytes Absolute Manual 0.5 X10*3/uL (0.1-1.2); Neutrophils Absolute Manual 11.8 X10*3/uL (2.0-8.3); White Blood Count 13.3 X10*3/uL (4.8-10.8)
--- NOTE | 2022-03-26 07:30 | MHC.CM.PN ---
Addendum entered by Amarilys Goodman RN 03/26/22 08:40: CORRECTION; COMPRESSION BOOTS; NOT WOUND VAC. Original Note: PATIENT IS CURRENTLY HAVING A WOUND VAC PLACED. CASE MANAGEMENT NAME ON BOARD SHE IS AWARE THAT CASE MANAGEMENT WILL RETURN FOR ASSESSMENT
--- NOTE | 2022-03-26 07:51 | P.PNGS_ITS ---
Subjective Subjective Date of Service: 03/26/22 Patient reports: feels better and flatus Interval history: The patient is about 12 hours out from percutaneous drainage. She reports she feels surprisingly better and has started passing gas. She still has abdominal pain with moving but is tolerating ice chips. She reports some intermittent hiccups and belching and has not had any bowel movement yet. She otherwise denies any chest pain, difficulty breathing or shortness of breath. Physical Exam Vital Signs: Vital Signs: Last Vital Signs Temp 97.8 F 03/26/22 03:01 Pulse 106 H 03/26/22 03:01 Resp 16 03/26/22 03:01 BP 145/75 H 03/26/22 03:01 Pulse Ox 97 03/26/22 03:01 O2 Del Method 03/26/22 03:01 BMI result Body Mass Index 29.2 The patient is nontoxic and in surprisingly good spirits Abdomen is less tender and percutaneous drains have expected malodorous, feculent drainage. No lower extremity cords are appreciated Abdominal exam is improved from yesterday. Objective Data Active Medications Hydromorphone HCl (Hydromorphone Hcl 1 Mg/Ml Syringe) 0.5 mg IVPUSH Q4H PRN; Protocol PRN Reason: Pain, Severe (Pain Scale 7-10) Last Admin: 03/26/22 06:18 Dose: 0.5 mg Documented By: BING Piperacillin Sod/Tazobactam (Sod 3.375 gm/ Sodium Chloride) 50 mls @ 100 mls/hr IV Q6H [facility] Last Infusion: 03/26/22 05:43 Dose: 0 mls/hr Documented By: BING Potassium Chloride/Sodium Chloride (Kcl 20 Meq In 0.45% Sod) 20 meq in 1,000 ml s @ 125 mls/hr IVCONT .Q8H [facility] Last Admin: 03/26/22 05:59 Dose: 125 mls/hr Documented By: BING Ondansetron HCl (Ondansetron Hcl 4 Mg/2 Ml Vial) 4 mg IVPUSH Q6H PRN PRN Reason: Nausea and Vomiting Last Admin: 03/26/22 02:20 Dose: 4 mg Documented By: BING Sodium Chloride (0.9 % Sodium Chloride Flush 3 Ml Syringe) 3 ml IVFLUSH QSHIFT [facility] Last Admin: 03/25/22 22:16 Dose: 3 ml Documented By: BING Sodium Chloride (0.9 % Sodium Chloride Flush 3 Ml Syringe) 3 ml IVFLUSH QSHIFT [facility] Last Admin: 03/26/22 07:16 Dose: Not Given Documented By: TOM Non-Admin Reason: Duplicate Order Labs CBC & Chem 7: 03/26/22 06:18 03/26/22 06:18 Labs: Laboratory Results - last 24 hr 03/25/22 03/25/22 03/25/22 08:30 08:30 08:30 MCV 84.2 MCH 29.6 MCHC 35.2 H RDW 12.1 Plt Count 372 D MPV 9.4 Immature Gran % (Auto) Cancelled Neut % (Auto) Cancelled Lymph % (Auto) Cancelled Moody % (Auto) Cancelled Eos % (Auto) Cancelled Baso % (Auto) Cancelled Lymph # (Auto) Cancelled Moody # (Auto) Cancelled Eos # (Auto) Cancelled Baso # (Auto) Cancelled Abs Immat Gran (auto) Cancelled Absolute Neuts (auto) Cancelled Absolute Nucleated RBC 0.000 Nucleated RBC % (auto) 0.0 Neutrophils % (Manual) 61 Band Neutrophils % 17 H Lymphocytes % (Manual) 15 L Monocytes % (Manual) 6 Basophils % (Manual) 1 Abs Neuts (Manual) 5.8 Lymphocytes # (Manual) 1.1 L Monocytes # (Manual) 0.4 Basophils # (Manual) 0.1 Toxic Vacuolation PRESENT Dohle Bodies Platelet Estimate NORMAL Plt Morphology Comment NORMAL RBC Morphology NOTED Dwain Cells Acanthocytes (Spur) 1+ (0-2) PT 10.6 INR 0.9 APTT 23.4 L Anion Gap 21 H Estim Creat Clear Calc 89.5 Estimated GFR > 60 Random Glucose 123 H Lactic Acid Calcium 9.2 Magnesium 2.0 Total Bilirubin 0.9 AST 36 H ALT 67 H Alkaline Phosphatase 91 D Total Protein 6.4 L Albumin 3.7 Lipase 95 H Urine Color Urine Appearance Urine pH Ur Specific [place] Urine Protein Urine Glucose (UA) Urine Ketones Urine Blood Urine Nitrite Ur Leukocyte Esterase Urine RBC Urine WBC Ur Squamous Epith Cells Urine Bacteria Hyaline Casts Granular Casts Urine Opiates Screen Urine Fentanyl Screen Ur Barbiturates Screen Ur Phencyclidine Scrn Ur Amphetamines Screen U Benzodiazepines Scrn Urine Cocaine Screen U Marijuana (THC) Screen Ethyl Alcohol < 10 COVID-19 ([facility]) COVID-19 Clin Com Influenza Type A (GREG) Influenza Type A (PCR) Influenza Type B (GREG) Influenza Type B (PCR) Influenza A & B Note RSV RNA Qual (PCR) SARS-CoV-2 RNA (RT-PCR) 03/25/22 03/25/22 03/25/22 08:30 08:42 08:42 MCV MCH MCHC RDW Plt Count MPV Immature Gran % (Auto) Neut % (Auto) Lymph % (Auto) Moody % (Auto) Eos % (Auto) Baso % (Auto) Lymph # (Auto) Moody # (Auto) Eos # (Auto) Baso # (Auto) Abs Immat Gran (auto) Absolute Neuts (auto) Absolute Nucleated RBC Nucleated RBC % (auto) Neutrophils % (Manual) Band Neutrophils % Lymphocytes % (Manual) Monocytes % (Manual) Basophils % (Manual) Abs Neuts (Manual) Lymphocytes # (Manual) Monocytes # (Manual) Basophils # (Manual) Toxic Vacuolation Dohle Bodies Platelet Estimate Plt Morphology Comment RBC Morphology Dwain Cells Acanthocytes (Spur) PT INR APTT Anion Gap Estim Creat Clear Calc Estimated GFR Random Glucose Lactic Acid 1.0 Calcium Magnesium Total Bilirubin AST ALT Alkaline Phosphatase Total Protein Albumin Lipase Urine Color Urine Appearance Urine pH Ur Specific [place] Urine Protein Urine Glucose (UA) Urine Ketones Urine Blood Urine Nitrite Ur Leukocyte Esterase Urine RBC Urine WBC Ur Squamous Epith Cells Urine Bacteria Hyaline Casts Granular Casts Urine Opiates Screen Urine Fentanyl Screen Ur Barbiturates Screen Ur Phencyclidine Scrn Ur Amphetamines Screen U Benzodiazepines Scrn Urine Cocaine Screen U Marijuana (THC) Screen Ethyl Alcohol COVID-19 ([facility]) Negative COVID-19 Clin Com See Note Influenza Type A (GREG) Cancelled Influenza Type A (PCR) Influenza Type B (GREG) Cancelled Influenza Type B (PCR) Influenza A & B Note Cancelled RSV RNA Qual (PCR) SARS-CoV-2 RNA (RT-PCR) 03/25/22 03/25/22 03/25/22 08:42 09:12 09:12 MCV MCH MCHC RDW Plt Count MPV Immature Gran % (Auto) Neut % (Auto) Lymph % (Auto) Moody % (Auto) Eos % (Auto) Baso % (Auto) Lymph # (Auto) Moody # (Auto) Eos # (Auto) Baso # (Auto) Abs Immat Gran (auto) Absolute Neuts (auto) Absolute Nucleated RBC Nucleated RBC % (auto) Neutrophils % (Manual) Band Neutrophils % Lymphocytes % (Manual) Monocytes % (Manual) Basophils % (Manual) Abs Neuts (Manual) Lymphocytes # (Manual) Monocytes # (Manual) Basophils # (Manual) Toxic Vacuolation Dohle Bodies Platelet Estimate Plt Morphology Comment RBC Morphology [place] Cells Acanthocytes (Spur) PT INR APTT Anion Gap Estim Creat Clear Calc Estimated GFR Random Glucose Lactic Acid Calcium Magnesium Total Bilirubin AST ALT Alkaline Phosphatase Total Protein Albumin Lipase Urine Color Dark Yellow Urine Appearance Cloudy Urine pH 6.0 Ur Specific [place] 1.025 Urine Protein 100 (2+) H Urine Glucose (UA) Negative Urine Ketones 40 Urine Blood Negative Urine Nitrite Negative Ur Leukocyte Esterase Negative Urine RBC 11-20 H Urine WBC 0-5 Ur Squamous Epith Cells 0-2 Urine Bacteria None Seen Hyaline Casts 6-10 Granular Casts Present Urine Opiates Screen Not Detected Urine Fentanyl Screen Not Detected Ur Barbiturates Screen Not Detected Ur Phencyclidine Scrn Not Detected Ur Amphetamines Screen Not Detected U Benzodiazepines Scrn Not Detected Urine Cocaine Screen Not Detected U Marijuana (THC) Screen Not Detected Ethyl Alcohol COVID-19 ([facility]) COVID-19 Clin Com Influenza Type A (GREG) Influenza Type A (PCR) NEGATIVE Influenza Type B (GREG) Influenza Type B (PCR) NEGATIVE Influenza A & B Note RSV RNA Qual (PCR) NEGATIVE SARS-CoV-2 RNA (RT-PCR) NEGATIVE 03/26/22 03/26/22 03/26/22 06:18 06:18 06:18 MCV 87.4 MCH 31.0 MCHC 35.5 H RDW 12.8 Plt Count 339 MPV 9.6 Immature Gran % (Auto) Cancelled Neut % (Auto) Cancelled Lymph % (Auto) Cancelled Moody % (Auto) Cancelled Eos % (Auto) Cancelled Baso % (Auto) Cancelled Lymph # (Auto) Cancelled Moody # (Auto) Cancelled Eos # (Auto) Cancelled Baso # (Auto) Cancelled Abs Immat Gran (auto) Cancelled Absolute Neuts (auto) Cancelled Absolute Nucleated RBC 0.000 Nucleated RBC % (auto) 0.0 Neutrophils % (Manual) 65 Band Neutrophils % 24 H Lymphocytes % (Manual) 7 L Monocytes % (Manual) 4 Basophils % (Manual) Abs Neuts (Manual) 11.8 H Lymphocytes # (Manual) 0.9 L Monocytes # (Manual) 0.5 Basophils # (Manual) Toxic Vacuolation PRESENT Dohle Bodies PRESENT Platelet Estimate NORMAL Plt Morphology Comment NORMAL RBC Morphology NOTED Dwain Cells 1+ (0-2) Acanthocytes (Spur) PT INR APTT Anion Gap 18 Estim Creat Clear Calc 83.3 Estimated GFR > 60 Random Glucose 133 H Lactic Acid Calcium 8.5 D Magnesium Cancelled 2.1 Total Bilirubin AST ALT Alkaline Phosphatase Total Protein Albumin Lipase Urine Color Urine Appearance Urine pH Ur Specific [place] Urine Protein Urine Glucose (UA) Urine Ketones Urine Blood Urine Nitrite Ur Leukocyte Esterase Urine RBC Urine WBC Ur Squamous Epith Cells Urine Bacteria Hyaline Casts Granular Casts Urine Opiates Screen Urine Fentanyl Screen Ur Barbiturates Screen Ur Phencyclidine Scrn Ur Amphetamines Screen U Benzodiazepines Scrn Urine Cocaine Screen U Marijuana (THC) Screen Ethyl Alcohol COVID-19 ([facility]) COVID-19 Clin Com Influenza Type A (GREG) Influenza Type A (PCR) Influenza Type B (GREG) Influenza Type B (PCR) Influenza A & B Note RSV RNA Qual (PCR) SARS-CoV-2 RNA (RT-PCR) Microbiology Microbiology Results: Gram stain and speciation/sensitivities are pending Will obtain Infectious Disease consultation Procedures Date of Service Date of Service: 03/26/22 Progress Note: A&P Assessment and plan (1) Abnormal CT of the abdomen: Status: Acute (2) Ruptured appendix: Status: Acute (3) Colitis: Status: Acute (4) Ileitis, regional: Status: Acute Plan Continue bowel rest, IV antibiotics, encourage out of bed to chair or walking and please provide the patient with sequential compression stockings and incentive spirometry. Will consult ID and continue Zosyn for now. I had a long discussion with the patient that if she is not significantly improved within another 24-48 hours, we may need to change the plan and consider operative intervention. The inherent risks were again reviewed and apparently understood. The patient's questions seemed to be satisfactorily answered. Time Spent With Patient Time: Total time spent is greater than 50% in coordination of care (as documented) at patient's floor/unit and/or counseling patient: Quality Stroke Does the patient have a stroke diagnosis?: No VTE Prior VTE?: No VTE Risk Level:: Surgical - moderate VTE Device Contraindication: N/A - Device Ordered VTE Drug Contraindication: N/A - Med Ordered
[2022-03-26 08:00] VITALS: BP 143/81; PULSE 105; RESP 16; TEMP 36.5; O2SAT 97
--- NOTE | 2022-03-26 08:04 | HO.PM.IMPN ---
Subjective Subjective Date of Service: 03/26/22 Interval History: Seen in consultation for perforated apendice, h/o ETOH use but no withdrawal interval history: Overall feeling better Review of Systems no fever abd pain Physical Exam Vital Signs: Vital Signs: Last Vital Signs Temp 97.7 F 03/26/22 08:00 Pulse 105 H 03/26/22 08:00 Resp 16 03/26/22 08:00 BP 143/81 H 03/26/22 08:00 Pulse Ox 97 03/26/22 08:00 O2 Del Method 03/26/22 08:00 BMI result Body Mass Index 29.2 Const: Other: General: AO X 3, no acute distress Resp: CTA bilateral CVS: S1,S2,RRR GI: +BS, NT, no distention Skin: No rash, drain in place, Neuro: motor grossly intact Psych: appropriate affect Objective Data Active Medications Hydromorphone HCl (Hydromorphone Hcl 1 Mg/Ml Syringe) 0.5 mg IVPUSH Q4H PRN; Protocol PRN Reason: Pain, Severe (Pain Scale 7-10) Last Admin: 03/26/22 06:18 Dose: 0.5 mg Documented By: BING Piperacillin Sod/Tazobactam (Sod 3.375 gm/ Sodium Chloride) 50 mls @ 100 mls/hr IV Q6H [facility] Last Infusion: 03/26/22 05:43 Dose: 0 mls/hr Documented By: BING Potassium Chloride/Sodium Chloride (Kcl 20 Meq In 0.45% Sod) 20 meq in 1,000 mls @ 125 mls/hr IVCONT .Q8H [facility] Last Admin: 03/26/22 05:59 Dose: 125 mls/hr Documented By: BING Ondansetron HCl (Ondansetron Hcl 4 Mg/2 Ml Vial) 4 mg IVPUSH Q6H PRN PRN Reason: Nausea and Vomiting Last Admin: 03/26/22 02:20 Dose: 4 mg Documented By: BING Sodium Chloride (0.9 % Sodium Chloride Flush 3 Ml Syringe) 3 ml IVFLUSH QSHIFT [facility] Last Admin: 03/25/22 22:16 Dose: 3 ml Documented By: BING Sodium Chloride (0.9 % Sodium Chloride Flush 3 Ml Syringe) 3 ml IVFLUSH QSHIFT [facility] Last Admin: 03/26/22 07:16 Dose: Not Given Documented By: TOM Non-Admin Reason: Duplicate Order Labs CBC & Chem 7: 03/26/22 06:18 03/26/22 06:18 Labs: Laboratory Results - last 24 hr 03/25/22 03/25/22 03/25/22 08:30 08:30 08:30 MCV 84.2 MCH 29.6 MCHC 35.2 H RDW 12.1 Plt Count 372 D MPV 9.4 Immature Gran % (Auto) Cancelled Neut % (Auto) Cancelled Lymph % (Auto) Cancelled Bertie % (Auto) Cancelled Eos % (Auto) Cancelled Baso % (Auto) Cancelled Lymph # (Auto) Cancelled Bertie # (Auto) Cancelled Eos # (Auto) Cancelled Baso # (Auto) Cancelled Abs Immat Gran (auto) Cancelled Absolute Neuts (auto) Cancelled Absolute Nucleated RBC 0.000 Nucleated RBC % (auto) 0.0 Neutrophils % (Manual) 61 Band Neutrophils % 17 H Lymphocytes % (Manual) 15 L Monocytes % (Manual) 6 Basophils % (Manual) 1 Abs Neuts (Manual) 5.8 Lymphocytes # (Manual) 1.1 L Monocytes # (Manual) 0.4 Basophils # (Manual) 0.1 Toxic Vacuolation PRESENT Dohle Bodies Platelet Estimate NORMAL Plt Morphology Comment NORMAL RBC Morphology NOTED Dwain Cells Acanthocytes (Spur) 1+ (0-2) PT 10.6 INR 0.9 APTT 23.4 L Anion Gap 21 H Estim Creat Clear Calc 89.5 Estimated GFR > 60 Random Glucose 123 H Lactic Acid Calcium 9.2 Magnesium 2.0 Total Bilirubin 0.9 AST 36 H ALT 67 H Alkaline Phosphatase 91 D Total Protein 6.4 L Albumin 3.7 Lipase 95 H Urine Color Urine Appearance Urine pH Ur Specific [place] Urine Protein Urine Glucose (UA) Urine Ketones Urine Blood Urine Nitrite Ur Leukocyte Esterase Urine RBC Urine WBC Ur Squamous Epith Cells Urine Bacteria Hyaline Casts Granular Casts Urine Opiates Screen Urine Fentanyl Screen Ur Barbiturates Screen Ur Phencyclidine Scrn Ur Amphetamines Screen U Benzodiazepines Scrn Urine Cocaine Screen U Marijuana (THC) Screen Ethyl Alcohol < 10 COVID-19 ([facility]) COVID-19 Clin Com Influenza Type A (GREG) Influenza Type A (PCR) Influenza Type B (GREG) Influenza Type B (PCR) Influenza A & B Note RSV RNA Qual (PCR) SARS-CoV-2 RNA (RT-PCR) 03/25/22 03/25/22 03/25/22 08:30 08:42 08:42 MCV MCH MCHC RDW Plt Count MPV Immature Gran % (Auto) Neut % (Auto) Lymph % (Auto) Bertie % (Auto) Eos % (Auto) Baso % (Auto) Lymph # (Auto) Bertie # (Auto) Eos # (Auto) Baso # (Auto) Abs Immat Gran (auto) Absolute Neuts (auto) Absolute Nucleated RBC Nucleated RBC % (auto) Neutrophils % (Manual) Band Neutrophils % Lymphocytes % (Manual) Monocytes % (Manual) Basophils % (Manual) Abs Neuts (Manual) Lymphocytes # (Manual) Monocytes # (Manual) Basophils # (Manual) Toxic Vacuolation Dohle Bodies Platelet Estimate Plt Morphology Comment RBC Morphology [place] Cells Acanthocytes (Spur) PT INR APTT Anion Gap Estim Creat Clear Calc Estimated GFR Random Glucose Lactic Acid 1.0 Calcium Magnesium Total Bilirubin AST ALT Alkaline Phosphatase Total Protein Albumin Lipase Urine Color Urine Appearance Urine pH Ur Specific [place] Urine Protein Urine Glucose (UA) Urine Ketones Urine Blood Urine Nitrite Ur Leukocyte Esterase Urine RBC Urine WBC Ur Squamous Epith Cells Urine Bacteria Hyaline Casts Granular Casts Urine Opiates Screen Urine Fentanyl Screen Ur Barbiturates Screen Ur Phencyclidine Scrn Ur Amphetamines Screen U Benzodiazepines Scrn Urine Cocaine Screen U Marijuana (THC) Screen Ethyl Alcohol COVID-19 ([facility]) Negative COVID-19 Clin Com See Note Influenza Type A (GREG) Cancelled Influenza Type A (PCR) Influenza Type B (GREG) Cancelled Influenza Type B (PCR) Influenza A & B Note Cancelled RSV RNA Qual (PCR) SARS-CoV-2 RNA (RT-PCR) 03/25/22 03/25/22 03/25/22 08:42 09:12 09:12 MCV MCH MCHC RDW Plt Count MPV Immature Gran % (Auto) Neut % (Auto) Lymph % (Auto) Bertie % (Auto) Eos % (Auto) Baso % (Auto) Lymph # (Auto) Bertie # (Auto) Eos # (Auto) Baso # (Auto) Abs Immat Gran (auto) Absolute Neuts (auto) Absolute Nucleated RBC Nucleated RBC % (auto) Neutrophils % (Manual) Band Neutrophils % Lymphocytes % (Manual) Monocytes % (Manual) Basophils % (Manual) Abs Neuts (Manual) Lymphocytes # (Manual) Monocytes # (Manual) Basophils # (Manual) Toxic Vacuolation Dohle Bodies Platelet Estimate Plt Morphology Comment RBC Morphology Dwain Cells Acanthocytes (Spur) PT INR APTT Anion Gap Estim Creat Clear Calc Estimated GFR Random Glucose Lactic Acid Calcium Magnesium Total Bilirubin AST ALT Alkaline Phosphatase Total Protein Albumin Lipase Urine Color Dark Yellow Urine Appearance Cloudy Urine pH 6.0 Ur Specific [place] 1.025 Urine Protein 100 (2+) H Urine Glucose (UA) Negative Urine Ketones 40 Urine Blood Negative Urine Nitrite Negative Ur Leukocyte Esterase Negative Urine RBC 11-20 H Urine WBC 0-5 Ur Squamous Epith Cells 0-2 Urine Bacteria None Seen Hyaline Casts 6-10 Granular Casts Present Urine Opiates Screen Not Detected Urine Fentanyl Screen Not Detected Ur Barbiturates Screen Not Detected Ur Phencyclidine Scrn Not Detected Ur Amphetamines Screen Not Detected U Benzodiazepines Scrn Not Detected Urine Cocaine Screen Not Detected U Marijuana (THC) Screen Not Detected Ethyl Alcohol COVID-19 ([facility]) COVID-19 Clin Com Influenza Type A (GREG) Influenza Type A (PCR) NEGATIVE Influenza Type B (GREG) Influenza Type B (PCR) NEGATIVE Influenza A & B Note RSV RNA Qual (PCR) NEGATIVE SARS-CoV-2 RNA (RT-PCR) NEGATIVE 03/26/22 03/26/22 03/26/22 06:18 06:18 06:18 MCV 87.4 MCH 31.0 MCHC 35.5 H RDW 12.8 Plt Count 339 MPV 9.6 Immature Gran % (Auto) Cancelled Neut % (Auto) Cancelled Lymph % (Auto) Cancelled Bertie % (Auto) Cancelled Eos % (Auto) Cancelled Baso % (Auto) Cancelled Lymph # (Auto) Cancelled Bertie # (Auto) Cancelled Eos # (Auto) Cancelled Baso # (Auto) Cancelled Abs Immat Gran (auto) Cancelled Absolute Neuts (auto) Cancelled Absolute Nucleated RBC 0.000 Nucleated RBC % (auto) 0.0 Neutrophils % (Manual) 65 Band Neutrophils % 24 H Lymphocytes % (Manual) 7 L Monocytes % (Manual) 4 Basophils % (Manual) Abs Neuts (Manual) 11.8 H Lymphocytes # (Manual) 0.9 L Monocytes # (Manual) 0.5 Basophils # (Manual) Toxic Vacuolation PRESENT Dohle Bodies PRESENT Platelet Estimate NORMAL Plt Morphology Comment NORMAL RBC Morphology NOTED [place] Cells 1+ (0-2) Acanthocytes (Spur) PT INR APTT Anion Gap 18 Estim Creat Clear Calc 83.3 Estimated GFR > 60 Random Glucose 133 H Lactic Acid Calcium 8.5 D Magnesium Cancelled 2.1 Total Bilirubin AST ALT Alkaline Phosphatase Total Protein Albumin Lipase Urine Color Urine Appearance Urine pH Ur Specific [place] Urine Protein Urine Glucose (UA) Urine Ketones Urine Blood Urine Nitrite Ur Leukocyte Esterase Urine RBC Urine WBC Ur Squamous Epith Cells Urine Bacteria Hyaline Casts Granular Casts Urine Opiates Screen Urine Fentanyl Screen Ur Barbiturates Screen Ur Phencyclidine Scrn Ur Amphetamines Screen U Benzodiazepines Scrn Urine Cocaine Screen U Marijuana (THC) Screen Ethyl Alcohol COVID-19 ([facility]) COVID-19 Clin Com Influenza Type A ([facility]) Influenza Type A (PCR) Influenza Type B ([facility]) Influenza Type B (PCR) Influenza A & B Note RSV RNA Qual (PCR) SARS-CoV-2 RNA (RT-PCR) Assessment and Plan (1) Ruptured appendix: Status: Acute (2) Colitis: Status: Acute Plan 56 year old female with history of fibromyalgia, anxiety, alcohol abuse, and former smoker with 15 pack year history quit 30 years ago admitted to general surgery for appendicitis with rupture with medical consult placed for management of possible wtihdrawal. # Sepsis d/t Ruptured appendix/petionitis s/p d successful percutaneous drainage, Broad spec Abx (Zosyn), further intervention per surgery #? IBD--seen by GI see note (no suspcicion of this) #Tachycardia--related to above and is improving. #Alcohol abuse -Consumes 2-3 hard alcohol beverages daily, last drink per patient 5 days ago due to po intolerance -N/v, tachycardia likely secondary to above rather than withdrawal -Pt denies w/d symptoms. Unlikely to be in withdrawal given last etoh beverage 5 days ago -Follow CIWA. Will consider phenobarb if significantly elevated CIWA #Benzo use -no benzos in 10 months (prescribed short-term valium for pain) will follow Need for hospitalization: defer to surgery Quality Stroke Does the patient have a stroke diagnosis?: No VTE Prior VTE?: No VTE Risk Level:: Surgical - moderate VTE Device Contraindication: N/A - Device Ordered VTE Drug Contraindication: N/A - Med Ordered
--- NOTE | 2022-03-26 08:41 | MHC.CM.PN ---
PATIENT LIVES WITH SPOUSE AND IS FULLY INDEPENDENT. NO DME OR VNA SERVICES. SPOUSE IS HCP AND A NEW COPY CAN BE MADE HER IF PATIENT CHOOSES NONE IS ON FILE. PCP IS GISELE LAM NOT COVID OR FLU VACCINATED AND REPORTEDLY HAD COVID X 3. CASE MANAGEMENT FOLLOWING FOR DC NEEDS.
[2022-03-26] MEDS: HYDROmorphone HCl 0.5 MG/0.5 ML SYRINGE IVPUSH ×3 (10:40→20:03)
[2022-03-26 11:25] VITALS: BP 146/79; PULSE 104; RESP 16; TEMP 36.7; O2SAT 97
[2022-03-26 15:21] VITALS: BP 139/74; PULSE 102; RESP 18; TEMP 37.1; O2SAT 96
[2022-03-26] MEDS: Heparin Sodium,Porcine 5,000 UNIT/ML VIAL 5000 UNIT SUBCUT (17:13)
[2022-03-26 20:00] VITALS: BP 173/79; PULSE 101; RESP 20; TEMP 36.9; O2SAT 99
--- NOTE | 2022-03-26 22:44 | W.PM.IDCN ---
History of Present Illness Data of Consult Service Date: 03/26/22 Requesting physician: Raul Bryan Primary Care Provider: Unknown Physician HPI Reason for consult: leukocytosis She presents with abdominal pain,6/10 lower abdomen. She has felt abdominal pain crampy since 03/20 and came to ER 03/21. She left ER because couldnt wait and then reappeared next day. She was found to have perforated appendix and had IR drainage of pelvic collection and drainage shows plus 4 polys and plus 4 gram positive cocci and plus 4 gram negative rods,culture pending. She has two abdominal drains,anterior and posterior. She feels better Review of Systems Review of Systems: No all other systems are reviewed and are negative PMFSH Past Medical History Medical History Alcohol abuse Anxiety Chronic pain Fibromyalgia Family History Family History Mother Diabetes Cardiomyopathy Father Malignant neoplasm of lung metastatic to brain Family history: reviewed and not pertinent Social History Social History Household Members: Family Housing: Apartment Do you presently have visiting nurse or other home services: No Alcohol intake: current Alcohol intake frequency: 3 or more drinks per day Alcohol type: hard liquor Patient Tobacco Use Status: Former Tobacco user Tobacco use type: Cigarette Cigarette Packs Per Day: 20 Years Smoked: 12 Substance Use Type: Marijuana Meds Allergies Allergy/AdvReac Type Severity Reaction Status Date / Time No Known Allergies Allergy Verified 06/05/21 08:46 Active Medications: Current Medications Heparin Sodium (Porcine) (Heparin Sodium,Porcine 5,000 Unit/Ml Vial) 5,000 unit SUBCUT Q12H [facility] Last Admin: 03/26/22 17:13 Dose: 5,000 unit Hydromorphone HCl (Hydromorphone Hcl 0.5 Mg/0.5 Ml Syringe) 0.5 mg IVPUSH Q2H PRN; Protocol PRN Reason: Pain, Severe (Pain Scale 7-10) Last Admin: 03/26/22 20:03 Dose: 0.5 mg Piperacillin Sod/Tazobactam (Sod 3.375 gm/ Sodium Chloride) 50 mls @ 100 mls/hr IV Q6H [facility] Last Infusion: 03/26/22 19:25 Dose: Infused Potassium Chloride/Sodium Chloride (Kcl 20 Meq In 0.45% Sod) 20 meq in 1,000 mls @ 125 mls/hr IVCONT .Q8H [facility] Last Admin: 03/26/22 17:03 Dose: 125 mls/hr Ondansetron HCl (Ondansetron Hcl 4 Mg/2 Ml Vial) 4 mg IVPUSH Q6H PRN PRN Reason: Nausea and Vomiting Last Admin: 03/26/22 20:02 Dose: 4 mg Sodium Chloride (0.9 % Sodium Chloride Flush 3 Ml Syringe) 3 ml IVFLUSH QSHIFT [facility] Last Admin: 03/26/22 20:02 Dose: 3 ml Sodium Chloride (0.9 % Sodium Chloride Flush 3 Ml Syringe) 3 ml IVFLUSH [facility] Last Admin: 03/26/22 20:02 Dose: 3 ml Home Medications Medication Instructions Recorded Confirmed Last Taken Type duloxetine 60 mg capsule,delayed 1 cap PO DAILY 03/25/22 03/25/22 03/24/22 History release Physical Exam Vital Signs: Vital Signs: Last Vital Signs Temp 98.4 F 03/26/22 20:00 Pulse 101 H 03/26/22 20:00 Resp 20 03/26/22 20:00 BP 173/79 H 03/26/22 20:00 Pulse Ox 99 03/26/22 20:00 O2 Del Method 03/26/22 20:00 BMI result Body Mass Index 29.2 Const: General: cooperative HEENT: Head: Yes normal to inspection Face and sinus: Yes normal facial exam Mouth: Normal oral and palatal mucosa present Teeth and gingiva: dentition normal Eyes: General: appearance normal, both eyes and all related structures Pupils: Equal, round and reactive pupils present Resp: Effort & Inspection: normal respiratory effort Cardio: Rate: regular rate Rhythm: regular rhythm GI: Other: mild distention abdomen,drain serous anterior,drain serous posterior Palpation (GI): Soft to palpation and nontender : General: Yes no CVA tenderness Back/Spine/Pelvis: Back: no CVA tenderness Skin: General skin exam: no rashes or lesions noted Neuro: General: moves all extremities Cranial nerves: Yes Equal, round and reactive pupils present Extrem: General: Yes normal to inspection Psych: Appearance: grossly normal Results Labs CBC & Chem 7: 03/26/22 06:18 03/26/22 06:18 Labs: Short CBC 03/26/22 Range/Units 06:18 WBC 13.3 H (4.8-10.8) X10*3/uL Hgb 13.3 (12.0-16.0) g/dl Hct 37.5 (37.0-47.0) % Plt Count 339 (160-400) X10*3/uL BMP 03/26/22 06:18 Sodium 138 Potassium 3.9 Chloride 98 Carbon Dioxide 26 BUN 19 H Creatinine 0.73 Calcium 8.5 D Microbiology Microbiology Results: Microbiology 03/25/22 16:53 Abdominal Fluid Gram Stain - Final 03/25/22 16:53 Abdominal Fluid Routine Culture - Preliminary Gram negative ila 03/25/22 16:53 Abdominal Fluid Anaerobic Culture - Preliminary Culture in progress. 03/25/22 16:53 Abscess Appendiceal Gram Stain - Final 03/25/22 16:53 Abscess Appendiceal Routine Culture - Preliminary Gram negative ila Assessment and Plan (1) Ileitis, regional: Status: Acute (2) Abnormal CT of the abdomen: Status: Acute Perforated appendicitis?Crohns disease No antibiotic allergies Gram negative rods pending. She has mild leukocytosis and drains in place 5 x 6 cm gram negative collection (3) Ruptured appendix: Status: Acute Plan Would continue Piperacillin/tazobactam Duration of antibiotics to be determined. Await cultures.
[2022-03-26 23:55] VITALS: BP 157/78; PULSE 90; RESP 16; TEMP 36.8; O2SAT 96
[2022-03-27] VITALS (9 sets, daily range): BP systolic 142–173; BP diastolic 69–89; PULSE 89–96; RESP 16–18; TEMP 36.3–37.2; O2SAT 95–98
[2022-03-27] MEDS: HYDROmorphone HCl 0.5 MG/0.5 ML SYRINGE IVPUSH ×6 (00:19→20:01)
[2022-03-27] MEDS: Piperacillin Sodium/Tazobactam 3.375 GM in 0.9 % Sodium Chloride 50 ML IV ×2 (00:20→05:21)
[2022-03-27] MEDS: KCl 20 mEq in 0.45% Sod 20 MEQ/1,000 ML IV.SOLN 125 MEQ IVCONT ×3 (02:36→19:52)
[2022-03-27] MEDS: ondansetron HCL 4 MG/2 ML VIAL IVPUSH ×3 (04:08→20:01)
[2022-03-27] MEDS: Heparin Sodium,Porcine 5,000 UNIT/ML VIAL 5000 UNIT SUBCUT ×2 (05:20→18:39)
[2022-03-27 06:48] LABS: Hematocrit 33.8 % (37.0-47.0); Hemoglobin 11.9 g/dl (12.0-16.0); Mean Corpuscular HGB Conc 35.2 g/dl (31.0-35.0); Mean Corpuscular Hemoglobin 30.3 pg (27.0-33.0); Mean Platelet Volume 9.7 fL (9.4-12.3); Platelet Count 360 X10*3/uL (160-400); Red Blood Count 3.93 X10*6/uL (4.20-5.50); Red Cell Distribution Width 12.6 % (11.0-16.0); White Blood Count 16.1 X10*3/uL (4.8-10.8)
[2022-03-27 07:20] LABS: Anion Gap 16 (12-20); Blood Urea Nitrogen 17 mg/dL (9-16); Calcium 8.1 mg/dL (8.4-10.2); Carbon Dioxide 23 mmol/L (22-29); Chloride 100 mmol/L (96-108); Creatinine Clr Calc Pharmacy 103.1; Estimated Glomerular Filt Rate > 60; Glucose Random 92 mg/dL (60-115); Magnesium 2.1 mg/dL (1.6-2.6); Potassium 3.2 mmol/L (3.3-5.1); Sodium 136 mmol/L (135-145)
[2022-03-27 07:22] LABS: Band Neutrophils Percent 24 % (3-5); Burr Cells 1+ (0-2) /OIF; Lymphocytes Percent Manual 6 % (20-40); Metamyelocytes Absolute 0.5 X10*3/uL; Metamyelocytes Percent 3 %; Monocytes Absolute Manual 0.2 X10*3/uL (0.1-1.2); Monocytes Percent Manual 1 % (2-11); Myelocytes Absolute 0.2 X10*/uL; Myelocytes Percent 1 %; Neutrophils Absolute Manual 14.3 X10*3/uL (2.0-8.3); Neutrophils Percent Manual 65 % (45-73); Platelet Estimate NORMAL (NORMAL); Platelet Morphology Comment NORMAL; RBC Morphology NOTED
[2022-03-27 07:23] LABS: Toxic Vacuolation PRESENT
--- NOTE | 2022-03-27 09:28 | P.PNGS_ITS ---
Subjective Subjective Date of Service: 03/27/22 <Sharon Fisher PA-C - Last Filed: 03/27/22 09:41> 03/27/22 <Raul Bryan MD - Last Filed: 03/27/22 11:46> Interval history: Overall still thinks she is feeling better. Right sided pain remains a 6- 7/10 but this is improved since admission. Passing continuous flatus but no BM yet. Does not feel like she could get OOB to the bathroom routinely or use bed adam yet and would like to keep pedro catheter. <Sharon Fisher PA-C - Last Filed: 03/27/22 09:41> Physical Exam Vital Signs: Vital Signs: Last Vital Signs Temp 97.8 F 03/27/22 07:53 Pulse 89 03/27/22 07:53 Resp 18 03/27/22 09:12 BP 153/79 H 03/27/22 07:53 Pulse Ox 96 03/27/22 07:53 O2 Del Method 03/27/22 07:53 BMI result Body Mass Index 29.2 <Sharon Fisher PA-C - Last Filed: 03/27/22 09:41> Abdomen still worker helper but the patient reports improvement IR drains have transition to more serous than purulent drainage <Raul Bryan MD - Last Filed: 03/27/22 11:46> Const: General: healthy appearing, comfortable and alert <Sharon Fisher PA-C - Last Filed: 03/27/22 09:41> Orientation/consciousness: patient oriented x3 <Sharon Fisher PA-C - Last Filed: 03/27/22 09:41> Resp: Effort & Inspection: normal respiratory effort <PLACIDO Garcia Last Filed: 03/27/22 09:41> Cardio: Rate: regular rate and tachycardic <PLACIDO Garcia Last Filed: 03/27/22 09:41> GI: Other: pigtail drains at right flank and right lower back intact with serous drainage <PLACIDO Garcia Last Filed: 03/27/22 09:41> Inspection: No distended <Sharon Fisher PA-C - Last Filed: 03/27/22 09:41> Palpation (GI): Soft to palpation, Tenderness to palpation present (GI) in the RLQ (moderate) and with rebound tenderness, no guarding and not rigid <Sharon Fisher PA-C - Last Filed: 03/27/22 09:41> Percussion: Yes normal to percussion <PLACIDO Garcia Last Filed: 03/27/22 09:41> Skin: General skin exam: no rashes or lesions noted <PLACIDO Garcia Last Filed: 03/27/22 09:41> Neuro: General: patient oriented x3 <PLACIDO Garcia Last Filed: 03/27/22 09:41> Extrem: General: Yes no clubbing, cyanosis or edema <PLACIDO Garcia Last Filed: 03/27/22 09:41> Objective Data Active Medications Heparin Sodium (Porcine) (Heparin Sodium,Porcine 5,000 Unit/Ml Vial) 5,000 unit SUBCUT Q12H [facility] Last Admin: 03/27/22 05:20 Dose: 5,000 unit Documented By: MARANDA Hydromorphone HCl (Hydromorphone Hcl 0.5 Mg/0.5 Ml Syringe) 0.5 mg IVPUSH Q2H PRN; Protocol PRN Reason: Pain, Severe (Pain Scale 7-10) Last Admin: 03/27/22 09:12 Dose: 0.5 mg Documented By: CHRIS Piperacillin Sod/Tazobactam (Sod 3.375 gm/ Sodium Chloride) 50 mls @ 100 mls/hr IV Q6H [facility] Last Infusion: 03/27/22 05:58 Dose: 0 mls/hr Documented By: MARANDA Potassium Chloride/Sodium Chloride (Kcl 20 Meq In 0.45% Sod) 20 meq in 1,000 mls @ 125 mls/hr IVCONT .Q8H [facility] Last Admin: 03/27/22 06:42 Dose: Not Given Documented By: MARANDA Non-Admin Reason: IVF is currently running will end at 10:36 Promethazine HCl 12.5 mg/ (Sodium Chloride) 50.5 mls @ 202 mls/hr IV Q6H PRN PRN Reason: Vomiting Last Admin: 03/27/22 09:12 Dose: 202 mls/hr Documented By: CHRIS Ondansetron HCl (Ondansetron Hcl 4 Mg/2 Ml Vial) 4 mg IVPUSH Q6H PRN PRN Reason: Nausea and Vomiting Last Admin: 03/27/22 04:08 Dose: 4 mg Documented By: MARANDA Sodium Chloride (0.9 % Sodium Chloride Flush 3 Ml Syringe) 3 ml IVFLUSH [facility] Last Admin: 03/27/22 07:10 Dose: Not Given Documented By: CHRIS Non-Admin Reason: IV Running Sodium Chloride (0.9 % Sodium Chloride Flush 3 Ml Syringe) 3 ml IVFLUSH [facility] Last Admin: 03/27/22 07:10 Dose: Not Given Documented By: CHRIS Non-Admin Reason: IV Running <Sharon Fisher PA-C - Last Filed: 03/27/22 09:41> Labs CBC & Chem 7: : 03/27/22 06:22 03/27/22 05:43 <Sharon Fisher PA-C - Last Filed: 03/27/22 09:41> Labs: Laboratory Results - last 24 hr 03/27/22 03/27/22 05:43 06:22 MCV 86.0 MCH 30.3 MCHC 35.2 H RDW 12.6 Plt Count 360 MPV 9.7 Immature Gran % (Auto) Cancelled Neut % (Auto) Cancelled Lymph % (Auto) Cancelled Mcl[place]an % (Auto) Cancelled Eos % (Auto) Cancelled Baso % (Auto) Cancelled Lymph # (Auto) Cancelled Mclennan # (Auto) Cancelled Eos # (Auto) Cancelled Baso # (Auto) Cancelled Abs Immat Gran (auto) Cancelled Absolute Neuts (auto) Cancelled Absolute Nucleated RBC 0.000 Nucleated RBC % (auto) 0.0 Neutrophils % (Manual) 65 Band Neutrophils % 24 H Lymphocytes % (Manual) 6 L Monocytes % (Manual) 1 L Metamyelocytes % 3 Myelocytes % 1 Abs Neuts (Manual) 14.3 H Lymphocytes # (Manual) 1.0 L Monocytes # (Manual) 0.2 Metamyelocytes # 0.5 Myelocytes # 0.2 Toxic Vacuolation PRESENT Platelet Estimate NORMAL Plt Morphology Comment NORMAL RBC Morphology NOTED [place] Cells 1+ (0-2) Anion Gap 16 Estim Creat Clear Calc 103.1 Estimated GFR > 60 Random Glucose 92 Calcium 8.1 L Magnesium 2.1 <Sharon Fisher PA-C - Last Filed: 03/27/22 09:41> Microbiology Microbiology Results: Microbiology 03/25/22 16:53 Gram Stain - Final Abdominal Fluid Routine Culture - Preliminary Escherichia coli Anaerobic Culture - Preliminary Culture in progress. 03/25/22 16:53 Gram Stain - Final Abscess Appendiceal Routine Culture - Preliminary Escherichia coli <Sharon Fisher PA-C - Last Filed: 03/27/22 09:41> Procedures Date of Service Date of Service: 03/27/22 <PLACIDO Garcia Last Filed: 03/27/22 09:41> Progress Note: A&P Assessment and plan (1) Ileitis, regional: Status: Acute <PLACIDO Garcia Last Filed: 03/27/22 09:41> (2) Ruptured appendix: Status: Acute <PLACIDO Garcia Last Filed: 03/27/22 09:41> (3) Abnormal CT of the abdomen: Status: Acute <PLACIDO Garcia Last Filed: 03/27/22 09:41> (4) Acute hypokalemia: Status: Acute <PLACIDO Garcia Last Filed: 03/27/22 09:41> Assessment and Plan: Patient appears to be improving slowly with conservative management. Her WBC is up but vitals improved and patient's pain improved. Drain output is now serous and decreasing, keep in place and trend output. Continue bowel rest, IVF, IV zosyn as per ID recommendations. Abscess cultures grew Escherichia coli. She was encouraged OOB to recliner and to ambulate at least in room today. Discussed with patient and that we will continue nonoperative measures for now as she seems to be improving but if no further improvement or acute worsening will warrant surgical intervention. ?Repeat CT scan if no improvement in WBC count tomorrow. Hypokalemia on this AM labs. Replace K. <PLACIDO Garcia Last Filed: 03/27/22 09:41> Patient appears to be improving slowly with conservative management. Her WBC is up but vitals improved and patient's pain improved. Drain output is now serous and decreasing, keep in place and trend output. Continue bowel rest, IVF, IV zosyn as per ID recommendations. Abscess cultures grew Escherichia coli. She was encouraged OOB to recliner and to ambulate at least in room today. Discussed with patient and that we will continue nonoperative measures for now as she seems to be improving but if no further improvement or acute worsening will warrant surgical intervention. ?Repeat CT scan if no improvement in WBC count tomorrow. Hypokalemia on this AM labs. Ramo K. Agree with above The patient has had continued flatus but is also reporting that she is still bloated and intermittently having hiccups which is suggestive of ileus or poor function of her intestine secondary to peritonitis. I met with the patient and her explained they will continue to treat with IV antibiotics, trend her labs and clinical exam. If that she is not improved by Thursday to Thursday, this would be considered failure of non operative management and we will discuss operative intervention. I did explain that the most likely culprit for problems as perforated appendicitis. However, her terminal ileum is significantly inflamed on CT and this may be the result of a Crohn's perforation which would require ileocecal ectomy. Given the complexity and risks, will continue non operative intervention at this time. Dr. Delacruz has adjusted to ceftriaxoner per sensitivities. ID input also appreciated. Continue drain management per IR. Continue NPO. <Raul Bryan MD - Last Filed: 03/27/22 11:46> Time Spent With Patient Time: Total time spent is greater than 50% in coordination of care (as documented) at patient's floor/unit and/or counseling patient: <Sharon Fisher PA-C - Last Filed: 03/27/22 09:41> Quality Stroke Does the patient have a stroke diagnosis?: No <Sharon Fisher PA-C - Last Filed: 03/27/22 09:41> VTE Prior VTE?: No <Sharon Fisher PA-C - Last Filed: 03/27/22 09:41> VTE Risk Level:: Surgical - moderate <Sharon Fisher PA-C - Last Filed: 03/27/22 09:41> VTE Device Contraindication: N/A - Device Ordered <PLACIDO Garcia Last Filed: 03/27/22 09:41> VTE Drug Contraindication: N/A - Med Ordered <Sharon Fisher PA-C - Last Filed: 03/27/22 09:41>
--- NOTE | 2022-03-27 09:36 | P.PNIM_ITS ---
Subjective Subjective Date of Service: 03/27/22 Interval History: Seen in consultation for perforated apendice, h/o ETOH use but no withdrawal interval history: She remains NPO, no pain, mild output in drain Review of Systems no fever abd pain Physical Exam Vital Signs: Vital Signs: Last Vital Signs Temp 97.8 F 03/27/22 07:53 Pulse 89 03/27/22 07:53 Resp 18 03/27/22 09:12 BP 153/79 H 03/27/22 07:53 Pulse Ox 96 03/27/22 07:53 O2 Del Method 03/27/22 07:53 BMI result Body Mass Index 29.2 Const: Other: General: AO X 3, no acute distress Resp: CTA bilateral CVS: S1,S2,RRR GI: +BS, NT, no distention Skin: No rash, drain in place, Neuro: motor grossly intact Psych: appropriate affect Objective Data Active Medications Heparin Sodium (Porcine) (Heparin Sodium,Porcine 5,000 Unit/Ml Vial) 5,000 unit SUBCUT Q12H [facility] Last Admin: 03/27/22 05:20 Dose: 5,000 unit Documented By: MARANDA Hydromorphone HCl (Hydromorphone Hcl 0.5 Mg/0.5 Ml Syringe) 0.5 mg IVPUSH Q2H PRN; Protocol PRN Reason: Pain, Severe (Pain Scale 7-10) Last Admin: 03/27/22 09:12 Dose: 0.5 mg Documented By: COTTOMÁS Piperacillin Sod/Tazobactam (Sod 3.375 gm/ Sodium Chloride) 50 mls @ 100 mls/hr IV Q6H [facility] Last Infusion: 03/27/22 05:58 Dose: 0 mls/hr Documented By: MARANDA Potassium Chloride/Sodium Chloride (Kcl 20 Meq In 0.45% Sod) 20 meq in 1,000 mls @ 125 mls/hr IVCONT .Q8H [facility] Last Admin: 03/27/22 06:42 Dose: Not Given Documented By: MARANDA Non-Admin Reason: IVF is currently running will end at 10:36 Promethazine HCl 12.5 mg/ (Sodium Chloride) 50.5 mls @ 202 mls/hr IV Q6H PRN PRN Reason: Vomiting Last Admin: 03/27/22 09:12 Dose: 202 mls/hr Documented By: CHRIS Ondansetron HCl (Ondansetron Hcl 4 Mg/2 Ml Vial) 4 mg IVPUSH Q6H PRN PRN Reason: Nausea and Vomiting Last Admin: 03/27/22 04:08 Dose: 4 mg Documented By: MARANDA Potassium Chloride (Potassium Chloride Packet 20 Meq Packet) 40 meq PO ONCE ONE Stop: 03/27/22 09:35 Sodium Chloride (0.9 % Sodium Chloride Flush 3 Ml Syringe) 3 ml IVFLUSH [facility] Last Admin: 03/27/22 07:10 Dose: Not Given Documented By: CHRIS Non-Admin Reason: IV Running Sodium Chloride (0.9 % Sodium Chloride Flush 3 Ml Syringe) 3 ml IVFLUSH [facility] Last Admin: 03/27/22 07:10 Dose: Not Given Documented By: CHRIS Non-Admin Reason: IV Running Labs CBC & Chem 7: 03/27/22 06:22 03/27/22 05:43 Labs: Laboratory Results - last 24 hr 03/27/22 03/27/22 05:43 06:22 MCV 86.0 MCH 30.3 MCHC 35.2 H RDW 12.6 Plt Count 360 MPV 9.7 Immature Gran % (Auto) Cancelled Neut % (Auto) Cancelled Lymph % (Auto) Cancelled [place] % (Auto) Cancelled Eos % (Auto) Cancelled Baso % (Auto) Cancelled Lymph # (Auto) Cancelled [place] # (Auto) Cancelled Eos # (Auto) Cancelled Baso # (Auto) Cancelled Abs Immat Gran (auto) Cancelled Absolute Neuts (auto) Cancelled Absolute Nucleated RBC 0.000 Nucleated RBC % (auto) 0.0 Neutrophils % (Manual) 65 Band Neutrophils % 24 H Lymphocytes % (Manual) 6 L Monocytes % (Manual) 1 L Metamyelocytes % 3 Myelocytes % 1 Abs Neuts (Manual) 14.3 H Lymphocytes # (Manual) 1.0 L Monocytes # (Manual) 0.2 Metamyelocytes # 0.5 Myelocytes # 0.2 Toxic Vacuolation PRESENT Platelet Estimate NORMAL Plt Morphology Comment NORMAL RBC Morphology NOTED [place] Cells 1+ (0-2) Anion Gap 16 Estim Creat Clear Calc 103.1 Estimated GFR > 60 Random Glucose 92 Calcium 8.1 L Magnesium 2.1 Microbiology Microbiology Results: Microbiology 03/25/22 16:53 Gram Stain - Final Abdominal Fluid Routine Culture - Preliminary Escherichia coli Anaerobic Culture - Preliminary Culture in progress. 03/25/22 16:53 Gram Stain - Final Abscess Appendiceal Routine Culture - Preliminary Escherichia coli Assessment and Plan (1) Ruptured appendix: Status: Acute (2) E. coli sepsis: Status: Acute Plan 56 year old female with history of fibromyalgia, anxiety, alcohol abuse, and former smoker with 15 pack year history quit 30 years ago admitted to general surgery for appendicitis with rupture with medical consult placed for management of possible wtihdrawal. # Sepsis d/t Ruptured appendix/petionitis s/p d successful percutaneous drainage, Broad spec Abx (Zosyn), Culture showing E. coli that is sensitive, change to Ceftriaoxone 2 grams daily further intervention per surgery, ID consult pending #? IBD--seen by GI see note (no suspcicion of this) #Tachycardia--related to above and is improving. #Alcohol abuse -Consumes 2-3 hard alcohol beverages daily, last drink per patient 5 days ago due to po intolerance -N/v, tachycardia likely secondary to above rather than withdrawal -Pt denies w/d symptoms. Unlikely to be in withdrawal given last etoh beverage 5 days ago -Follow CIWA. Will consider phenobarb if significantly elevated CIWA #Benzo use -no benzos in 10 months (prescribed short-term Valium for pain) will follow Need for hospitalization: defer to surgery Quality Stroke Does the patient have a stroke diagnosis?: No VTE Prior VTE?: No VTE Risk Level:: Surgical - moderate VTE Device Contraindication: N/A - Device Ordered VTE Drug Contraindication: N/A - Med Ordered
[2022-03-27] MEDS: Potassium Chloride Packet 20 MEQ PACKET 40 MEQ PO (10:13)
[2022-03-27] MEDS: cefTRIAXone sodium 2 GM in 0.9 % Sodium Chloride 50 ML IV (10:14)
[2022-03-27] MEDS: DULoxetine HCl 60 MG CAPSULE.DR PO (19:52)
[2022-03-27 22:41] LABS: Appearance Urine Clear; Color Urine Yellow; Glucose Urine UA Negative (Negative); Leukocyte Esterase Urine Negative (Negative); Nitrite Urine Negative (Negative); Specific Gravity - Urine >= 1.030 (1.005-1.025); UMIC TRIGGER UACC YES; Urine Blood Large (3+) (Negative); Urine Ketones >=80 mg/dL (Negative); Urine Protein 30 (1+) mg/dL (Neg-Trace)
[2022-03-27 23:37] LABS: RBC Urine >20 /HPF (0-2); Squamous Epithelial Cell Urine 0-2 /HPF (0-2); WBC Urine 0-5 /HPF (0-5)
[2022-03-27 23:38] LABS: Bacteria Urine None Seen (None Seen)
[2022-03-28] VITALS (9 sets, daily range): BP systolic 140–174; BP diastolic 80–88; PULSE 86–99; RESP 16–20; TEMP 36.1–37.3; O2SAT 95–99
[2022-03-28] MEDS: HYDROmorphone HCl 0.5 MG/0.5 ML SYRINGE IVPUSH ×6 (00:29→22:15)
[2022-03-28] MEDS: KCl 20 mEq in 0.45% Sod 20 MEQ/1,000 ML IV.SOLN 125 MEQ IVCONT ×3 (03:28→23:02)
[2022-03-28] MEDS: ondansetron HCL 4 MG/2 ML VIAL IVPUSH ×3 (03:32→18:09)
[2022-03-28] MEDS: Heparin Sodium,Porcine 5,000 UNIT/ML VIAL 5000 UNIT SUBCUT ×2 (06:17→18:09)
[2022-03-28 06:42] LABS: Hematocrit 34.9 % (37.0-47.0); Hemoglobin 11.6 g/dl (12.0-16.0); Mean Corpuscular HGB Conc 33.2 g/dl (31.0-35.0); Mean Corpuscular Hemoglobin 29.3 pg (27.0-33.0); Mean Corpuscular Volume 88.1 fL (80.0-98.0); Mean Platelet Volume 9.3 fL (9.4-12.3); Platelet Count 337 X10*3/uL (160-400); Red Blood Count 3.96 X10*6/uL (4.20-5.50); Red Cell Distribution Width 12.9 % (11.0-16.0)
[2022-03-28 07:07] LABS: Anion Gap 16 (12-20); Blood Urea Nitrogen 12 mg/dL (9-16); Calcium 8.1 mg/dL (8.4-10.2); Carbon Dioxide 24 mmol/L (22-29); Chloride 101 mmol/L (96-108); Creatinine Clr Calc Pharmacy 112.7; Estimated Glomerular Filt Rate > 60; Glucose Random 84 mg/dL (60-115); Potassium 3.7 mmol/L (3.3-5.1); Sodium 137 mmol/L (135-145)
[2022-03-28 07:14] LABS: Band Neutrophils Percent 9 % (3-5); Lymphocytes Absolute Manual 1.6 X10*3/uL (1.2-4.9); Lymphocytes Percent Manual 8 % (20-40); Metamyelocytes Absolute 0.6 X10*3/uL; Metamyelocytes Percent 3 %; Monocytes Absolute Manual 0.4 X10*3/uL (0.1-1.2); Monocytes Percent Manual 2 % (2-11); Neutrophils Absolute Manual 17.4 X10*3/uL (2.0-8.3); Neutrophils Percent Manual 78 % (45-73)
[2022-03-28 07:16] LABS: Hypochromasia 1+ (5-14) /OIF; Platelet Estimate NORMAL (NORMAL); Platelet Morphology Comment NORMAL; RBC Morphology NOTED
--- NOTE | 2022-03-28 07:37 | P.PNGS_ITS ---
Subjective Subjective Date of Service: 03/28/22 Patient reports: no new complaints Interval history: Reports that she feels better and had a restful night. She still having hiccups and has continued flatus as well as a bowel movement. Overall, she states that she feels better and denies any new issues of chest pain, leg swelling or pain, nausea or vomiting. She requested a conference call with her , Al, and she called him so that we could talk about a plan for today. Physical Exam Vital Signs: Vital Signs: Last Vital Signs Temp 97.2 F 03/28/22 03:30 Pulse 89 03/28/22 03:30 Resp 18 03/28/22 03:30 BP 161/81 H 03/28/22 03:30 Pulse Ox 97 03/28/22 03:30 O2 Del Method 03/28/22 03:30 BMI result Body Mass Index 29.2 NC/AT, PERRLA, EOMI Sclera remain anicteric She is in no acute distress Abdomen is unchanged since last night, with improvement in pain since admission but tympany is still present. No peritoneal sign to percussion is noted. IR drain his transition from purulence to serous Ni drainage is somewhat concentrated, UA shows elevated specific gravity and some red cells Objective Data Active Medications Duloxetine HCl (Duloxetine Hcl 60 Mg Capsule.) 60 mg PO BEDTIME [facility] Last Admin: 03/27/22 19:52 Dose: 60 mg Documented By: KIP Heparin Sodium (Porcine) (Heparin Sodium,Porcine 5,000 Unit/Ml Vial) 5,000 unit SUBCUT Q12H [facility] Last Admin: 03/28/22 06:17 Dose: 5,000 unit Documented By: KIP Hydromorphone HCl (Hydromorphone Hcl 0.5 Mg/0.5 Ml Syringe) 0.5 mg IVPUSH Q2H PRN; Protocol PRN Reason: Pain, Severe (Pain Scale 7-10) Last Admin: 03/28/22 03:32 Dose: 0.5 mg Documented By: KIP Potassium Chloride/Sodium Chloride (Kcl 20 Meq In 0.45% Sod) 20 meq in 1,000 mls @ 125 mls/hr IVCONT .Q8H [facility] Last Admin: 03/28/22 03:28 Dose: 125 mls/hr Documented By: KIP Promethazine HCl 12.5 mg/ (Sodium Chloride) 50.5 mls @ 202 mls/hr IV Q6H PRN PRN Reason: Vomiting Last Infusion: 03/27/22 16:20 Dose: 0 mls/hr Documented By: COTEMA Ceftriaxone Sodium 2 gm/ (Sodium Chloride) 50 mls @ 100 mls/hr IV Q24H [facility] Last Infusion: 03/27/22 11:08 Dose: 0 mls/hr Documented By: CHRIS Ondansetron HCl (Ondansetron Hcl 4 Mg/2 Ml Vial) 4 mg IVPUSH Q6H PRN PRN Reason: Nausea and Vomiting Last Admin: 03/28/22 03:32 Dose: 4 mg Documented By: KIP Sodium Chloride (0.9 % Sodium Chloride Flush 3 Ml Syringe) 3 ml IVFLUSH [facility] Last Admin: 03/28/22 07:01 Dose: Not Given Documented By: CHRIS Non-Admin Reason: Duplicate Order Sodium Chloride (0.9 % Sodium Chloride Flush 3 Ml Syringe) 3 ml IVFLUSH [facility] Last Admin: 03/28/22 07:01 Dose: Not Given Documented By: CHRIS Non-Admin Reason: IV Running Labs CBC & Chem 7: 03/28/22 06:17 03/28/22 06:17 Labs: Laboratory Results - last 24 hr 03/27/22 03/28/22 03/28/22 22:00 06:17 06:17 MCV 88.1 MCH 29.3 MCHC 33.2 RDW 12.9 Plt Count 337 MPV 9.3 L Immature Gran % (Auto) Cancelled Neut % (Auto) Cancelled Lymph % (Auto) Cancelled [place] % (Auto) Cancelled Eos % (Auto) Cancelled Baso % (Auto) Cancelled Lymph # (Auto) Cancelled [place] # (Auto) Cancelled Eos # (Auto) Cancelled Baso # (Auto) Cancelled Abs Immat Gran (auto) Cancelled Absolute Neuts (auto) Cancelled Absolute Nucleated RBC 0.000 Nucleated RBC % (auto) 0.0 Neutrophils % (Manual) 78 H Band Neutrophils % 9 H Lymphocytes % (Manual) 8 L Monocytes % (Manual) 2 Metamyelocytes % 3 Abs Neuts (Manual) 17.4 H Lymphocytes # (Manual) 1.6 Monocytes # (Manual) 0.4 Metamyelocytes # 0.6 Platelet Estimate NORMAL Plt Morphology Comment NORMAL RBC Morphology NOTED Hypochromasia 1+ (5-14) Anion Gap 16 Estim Creat Clear Calc 112.7 Estimated GFR > 60 Random Glucose 84 Calcium 8.1 L Urine Color Yellow Urine Appearance Clear Urine pH 6.0 Ur Specific [place] >= 1.030 H Urine Protein 30 (1+) H Urine Glucose (UA) Negative Urine Ketones >=80 Urine Blood Large (3+) H Urine Nitrite Negative Ur Leukocyte Esterase Negative Urine RBC >20 H Urine WBC 0-5 Ur Squamous Epith Cells 0-2 Urine Bacteria None Seen Hyaline Casts 3-5 Microbiology Microbiology Results: Microbiology 03/25/22 16:53 Gram Stain - Final Abdominal Fluid Routine Culture - Final Escherichia coli Group F Streptococcus Anaerobic Culture - Preliminary Culture in progress. 03/25/22 16:53 Gram Stain - Final Abscess Appendiceal Routine Culture - Final Escherichia coli Group F Streptococcus Procedures Date of Service Date of Service: 03/28/22 Progress Note: A&P Assessment and plan (1) E. coli sepsis: Status: Acute (2) Ileitis, regional: Status: Acute (3) Abnormal CT of the abdomen: Status: Acute (4) Ruptured appendix: Status: Acute (5) Colitis: Status: Acute (6) Acute hypokalemia: Status: Acute (7) Chronic pain: Status: Acute Plan I have ordered a CT of the abdomen and pelvis with oral and IV contrast to assess for undrained collections. Her leukocytosis may be secondary to periton itis, but she is at risk for ongoing or undrained collections. Will discuss with patient and her later after the study is done. Both her 's questions and her questions seemed to be satisfactorily answered. Possible need for operative intervention was again discussed. I reinforced that since we do not know if this is a Crohn's complication or complicated perforated appendicitis, I cannot predict what the intraoperative findings and needed operation would be. Will address after today CT. Time Spent With Patient Time: Total time spent is greater than 50% in coordination of care (as documented) at patient's floor/unit and/or counseling patient: Quality Stroke Does the patient have a stroke diagnosis?: No VTE Prior VTE?: No VTE Risk Level:: Surgical - moderate VTE Device Contraindication: N/A - Device Ordered VTE Drug Contraindication: N/A - Med Ordered
[2022-03-28] MEDS: cefTRIAXone sodium 2 GM in 0.9 % Sodium Chloride 50 ML IV (09:53)
--- NOTE | 2022-03-28 10:49 | P.PNIM_ITS ---
Subjective Subjective Date of Service: 03/28/22 Interval History: Seen in consultation for perforated apendice, h/o ETOH use but no withdrawal interval history: She remains NPO, WBC is higher but no increased pain, Review of Systems no fever abd pain Constitutional Constitutional: Reports as per HPI Physical Exam Vital Signs: Vital Signs: Last Vital Signs Temp 97.0 F 03/28/22 07:48 Pulse 86 03/28/22 07:48 Resp 17 03/28/22 09:54 BP 146/84 H 03/28/22 07:48 Pulse Ox 95 03/28/22 07:48 O2 Del Method 03/28/22 07:48 BMI result Body Mass Index 29.2 Const: Other: General: AO X 3, no acute distress Resp: CTA bilateral CVS: S1,S2,RRR GI: +BS, NT, no distention Skin: No rash, drains in place, Neuro: motor grossly intact Psych: appropriate affect Objective Data Active Medications Duloxetine HCl (Duloxetine Hcl 60 Mg Capsule.Dr) 60 mg PO BEDTIME [facility] Last Admin: 03/27/22 19:52 Dose: 60 mg Documented By: KIP Heparin Sodium (Porcine) (Heparin Sodium,Porcine 5,000 Unit/Ml Vial) 5,000 unit SUBCUT Q12H [facility] Last Admin: 03/28/22 06:17 Dose: 5,000 unit Documented By: KIP Hydromorphone HCl (Hydromorphone Hcl 0.5 Mg/0.5 Ml Syringe) 0.5 mg IVPUSH Q2H PRN; Protocol PRN Reason: Pain, Severe (Pain Scale 7-10) Last Admin: 03/28/22 09:54 Dose: 0.5 mg Documented By: CHRIS Potassium Chloride/Sodium Chloride (Kcl 20 Meq In 0.45% Sod) 20 meq in 1,000 mls @ 125 mls/hr IVCONT .Q8H [facility] Last Admin: 03/28/22 03:28 Dose: 125 mls/hr Documented By: KIP Promethazine HCl 12.5 mg/ (Sodium Chloride) 50.5 mls @ 202 mls/hr IV Q6H PRN PRN Reason: Vomiting Last Infusion: 03/27/22 16:20 Dose: 0 mls/hr Documented By: HO.COTEMA Ceftriaxone Sodium 2 gm/ (Sodium Chloride) 50 mls @ 100 mls/hr IV Q24H [facility] Last Infusion: 03/28/22 10:30 Dose: 0 mls/hr Documented By: COTEMA Ondansetron HCl (Ondansetron Hcl 4 Mg/2 Ml Vial) 4 mg IVPUSH Q6H PRN PRN Reason: Nausea and Vomiting Last Admin: 03/28/22 09:54 Dose: 4 mg Documented By: COTEMA Sodium Chloride (0.9 % Sodium Chloride Flush 3 Ml Syringe) 3 ml IVFLUSH [facility] Last Admin: 03/28/22 07:01 Dose: Not Given Documented By: COTEMA Non-Admin Reason: Duplicate Order Sodium Chloride (0.9 % Sodium Chloride Flush 3 Ml Syringe) 3 ml IVFLUSH [facility] Last Admin: 03/28/22 07:01 Dose: Not Given Documented By: CHRIS Non-Admin Reason: IV Running Labs CBC & Chem 7: 03/28/22 06:17 03/28/22 06:17 Labs: Laboratory Results - last 24 hr 03/27/22 03/28/22 03/28/22 22:00 06:17 06:17 MCV 88.1 MCH 29.3 MCHC 33.2 RDW 12.9 Plt Count 337 MPV 9.3 L Immature Gran % (Auto) Cancelled Neut % (Auto) Cancelled Lymph % (Auto) Cancelled [place] % (Auto) Cancelled Eos % (Auto) Cancelled Baso % (Auto) Cancelled Lymph # (Auto) Cancelled [place] # (Auto) Cancelled Eos # (Auto) Cancelled Baso # (Auto) Cancelled Abs Immat Gran (auto) Cancelled Absolute Neuts (auto) Cancelled Absolute Nucleated RBC 0.000 Nucleated RBC % (auto) 0.0 Neutrophils % (Manual) 78 H Band Neutrophils % 9 H Lymphocytes % (Manual) 8 L Monocytes % (Manual) 2 Metamyelocytes % 3 Abs Neuts (Manual) 17.4 H Lymphocytes # (Manual) 1.6 Monocytes # (Manual) 0.4 Metamyelocytes # 0.6 Platelet Estimate NORMAL Plt Morphology Comment NORMAL RBC Morphology NOTED Hypochromasia 1+ (5-14) Anion Gap 16 Estim Creat Clear Calc 112.7 Estimated GFR > 60 Random Glucose 84 Calcium 8.1 L Urine Color Yellow Urine Appearance Clear Urine pH 6.0 Ur Specific [place] >= 1.030 H Urine Protein 30 (1+) H Urine Glucose (UA) Negative Urine Ketones >=80 Urine Blood Large (3+) H Urine Nitrite Negative Ur Leukocyte Esterase Negative Urine RBC >20 H Urine WBC 0-5 Ur Squamous Epith Cells 0-2 Urine Bacteria None Seen Hyaline Casts 3-5 Microbiology Microbiology Results: Microbiology 03/25/22 16:53 Gram Stain - Final Abdominal Fluid Routine Culture - Final Escherichia coli Group F Streptococcus Anaerobic Culture - Preliminary Culture in progress. 03/25/22 16:53 Gram Stain - Final Abscess Appendiceal Routine Culture - Final Escherichia coli Group F Streptococcus Assessment and Plan (1) Ruptured appendix: Status: Acute (2) E. coli sepsis: Status: Acute Plan 56 year old female with history of fibromyalgia, anxiety, alcohol abuse, and former smoker with 15 pack year history quit 30 years ago admitted to general surgery for appendicitis with rupture with medical consult placed for management of possible wtihdrawal. # Sepsis d/t Ruptured appendix/petionitis s/p d successful percutaneous drainage, Broad spec Abx (Zosyn), Culture showing E. coli that is sensitive, change to Ceftriaoxone 2 grams daily further intervention per surgery, ID consult pending, repeating CT due to incr easing WBC #? IBD--seen by GI see note (no suspcicion of this) #Tachycardia--related to above and is resolved #Alcohol abuse -Consumes 2-3 hard alcohol beverages daily, last drink per patient 5 days ago due to po intolerance -N/v, tachycardia likely secondary to above rather than withdrawal -Pt denies w/d symptoms. Unlikely to be in withdrawal given last etoh beverage 5 days ago -Follow CIWA. Will consider phenobarb if significantly elevated CIWA #Benzo use -no benzos in 10 months (prescribed short-term Valium for pain) #Elevated BP--will keep eye on it and if persistent, will add meds will follow Need for hospitalization: defer to surgery Quality Stroke Does the patient have a stroke diagnosis?: No VTE Prior VTE?: No VTE Risk Level:: Surgical - moderate VTE Device Contraindication: N/A - Device Ordered VTE Drug Contraindication: N/A - Med Ordered
[2022-03-28] MEDS: iohexoL 350 MG/ML 100 ML INFUS..BTL IV (12:44)
[2022-03-28] MEDS: Barium Sulfate Oral (Mocha) 450 ML ORAL.SUSP 900 ML PO (12:45)
--- NOTE | 2022-03-28 16:46 | HO.RADPN ---
RADIOLOGY Narrative Narrative: New 8.5 fr ::Q drain placed. Specimen sent for culture. Pelvic drain pulled back.
[2022-03-28] MEDS: Lidocaine HCl 1 % MPF 5 ML VIAL 10 ML SUBCUT (17:14)
--- NOTE | 2022-03-28 17:25 | PC.NURSE ---
New abcess drain significant purulent drainage noted
--- NOTE | 2022-03-28 18:15 | P.PNGI_ITS ---
Subjective Subjective Date of Service: 03/28/22 Critical Care Time (minutes): 0 Comment: Pt could not be seen at remained in IR suite for majority of the afternoon. Physical Exam Vital Signs: Vital Signs: Last Vital Signs Temp 99.2 F 03/28/22 17:31 Pulse 99 03/28/22 17:31 Resp 18 03/28/22 18:10 BP 161/88 H 03/28/22 17:31 Pulse Ox 97 03/28/22 17:31 O2 Del Method 03/28/22 17:31 BMI result Body Mass Index 29.2 Objective Data Labs CBC & Chem 7: 03/28/22 06:17 03/28/22 06:17 Labs: Laboratory Results - last 24 hr 03/27/22 03/28/22 03/28/22 22:00 06:17 06:17 WBC 20.0 H RBC 3.96 L Hgb 11.6 L Hct 34.9 L MCV 88.1 MCH 29.3 MCHC 33.2 RDW 12.9 Plt Count 337 MPV 9.3 L Immature Gran % (Auto) Cancelled Neut % (Auto) Cancelled Lymph % (Auto) Cancelled [place] % (Auto) Cancelled Eos % (Auto) Cancelled Baso % (Auto) Cancelled Lymph # (Auto) Cancelled [place] # (Auto) Cancelled Eos # (Auto) Cancelled Baso # (Auto) Cancelled Abs Immat Gran (auto) Cancelled Absolute Neuts (auto) Cancelled Absolute Nucleated RBC 0.000 Nucleated RBC % (auto) 0.0 Neutrophils % (Manual) 78 H Band Neutrophils % 9 H Lymphocytes % (Manual) 8 L Monocytes % (Manual) 2 Metamyelocytes % 3 Abs Neuts (Manual) 17.4 H Lymphocytes # (Manual) 1.6 Monocytes # (Manual) 0.4 Metamyelocytes # 0.6 Platelet Estimate NORMAL Plt Morphology Comment NORMAL RBC Morphology NOTED Hypochromasia 1+ (5-14) Sodium 137 Potassium 3.7 Chloride 101 Carbon Dioxide 24 Anion Gap 16 BUN 12 Creatinine 0.54 Estim Creat Clear Calc 112.7 Estimated GFR > 60 Random Glucose 84 Calcium 8.1 L Urine Color Yellow Urine Appearance Clear Urine pH 6.0 Ur Specific [place] >= 1.030 H Urine Protein 30 (1+) H Urine Glucose (UA) Negative Urine Ketones >=80 Urine Blood Large (3+) H Urine Nitrite Negative Ur Leukocyte Esterase Negative Urine RBC >20 H Urine WBC 0-5 Ur Squamous Epith Cells 0-2 Urine Bacteria None Seen Hyaline Casts 3-5 Microbiology Microbiology Results: Microbiology 03/25/22 16:53 Abdominal Fluid Gram Stain - Final 03/25/22 16:53 Abdominal Fluid Routine Culture - Final Escherichia coli Group F Streptococcus 03/25/22 16:53 Abdominal Fluid Anaerobic Culture - Preliminary Bacteroides fragilis group 03/25/22 16:53 Abscess Appendiceal Gram Stain - Final 03/25/22 16:53 Abscess Appendiceal Routine Culture - Final Escherichia coli Group F Streptococcus Procedures Date of Service Date of Service: 03/28/22 Progress Note: A&P Time Spent With Patient Time: Total time spent is greater than 50% in coordination of care (as documented) at patient's floor/unit and/or counseling patient: Quality Stroke Does the patient have a stroke diagnosis?: No VTE Prior VTE?: No VTE Risk Level:: Surgical - moderate VTE Device Contraindication: N/A - Device Ordered VTE Drug Contraindication: N/A - Med Ordered
[2022-03-28] MEDS: DULoxetine HCl 60 MG CAPSULE.DR PO (22:00)
[2022-03-29] VITALS: BP 144/75; PULSE 90; RESP 17; TEMP 36.9; O2SAT 94
[2022-03-29 03:51] VITALS: BP 158/78; PULSE 87; RESP 18; TEMP 36.5; O2SAT 96
[2022-03-29] MEDS: Heparin Sodium,Porcine 5,000 UNIT/ML VIAL 5000 UNIT SUBCUT ×2 (06:01→17:45)
[2022-03-29] MEDS: HYDROmorphone HCl 0.5 MG/0.5 ML SYRINGE IVPUSH ×4 (06:07→20:07)
[2022-03-29 06:16] LABS: Hematocrit 35.4 % (37.0-47.0); Hemoglobin 11.7 g/dl (12.0-16.0); Mean Corpuscular HGB Conc 33.1 g/dl (31.0-35.0); Mean Corpuscular Hemoglobin 29.3 pg (27.0-33.0); Mean Corpuscular Volume 88.7 fL (80.0-98.0); Mean Platelet Volume 8.9 fL (9.4-12.3); Platelet Count 340 X10*3/uL (160-400); Red Blood Count 3.99 X10*6/uL (4.20-5.50); Red Cell Distribution Width 12.8 % (11.0-16.0); White Blood Count 24.3 X10*3/uL (4.8-10.8)
[2022-03-29 06:34] LABS: Anion Gap 18 (12-20); Blood Urea Nitrogen 6 mg/dL (9-16); Calcium 8.2 mg/dL (8.4-10.2); Carbon Dioxide 24 mmol/L (22-29); Chloride 99 mmol/L (96-108); Creatinine Clr Calc Pharmacy 114.8; Estimated Glomerular Filt Rate > 60; Glucose Random 93 mg/dL (60-115); Potassium 3.7 mmol/L (3.3-5.1); Sodium 137 mmol/L (135-145)
[2022-03-29 06:44] LABS: Band Neutrophils Percent 6 % (3-5); Lymphocytes Absolute Manual 1.2 X10*3/uL (1.2-4.9); Lymphocytes Percent Manual 5 % (20-40); Metamyelocytes Absolute 0.2 X10*3/uL; Metamyelocytes Percent 1 %; Monocytes Absolute Manual 0.7 X10*3/uL (0.1-1.2); Monocytes Percent Manual 3 % (2-11); Neutrophils Absolute Manual 22.1 X10*3/uL (2.0-8.3); Neutrophils Percent Manual 85 % (45-73)
[2022-03-29 06:45] LABS: Platelet Estimate NORMAL (NORMAL); Platelet Morphology Comment NORMAL; RBC Morphology NORMAL
[2022-03-29] MEDS: KCl 20 mEq in 0.45% Sod 20 MEQ/1,000 ML IV.SOLN 125 MEQ IVCONT ×2 (07:24→17:45)
[2022-03-29 07:48] VITALS: BP 134/76; PULSE 89; RESP 19; TEMP 36; O2SAT 95
--- NOTE | 2022-03-29 09:33 | HO.PM.IMPN ---
Subjective Subjective Date of Service: 03/29/22 Interval History: Seen in consultation for perforated apendice, h/o ETOH use but no withdrawal interval history: Overall feels better with no pain, WBC is up, no fever, cultures reviewed Review of Systems no fever abd pain Constitutional Constitutional: Reports as per HPI Physical Exam Vital Signs: Vital Signs: Last Vital Signs Temp 96.8 F 03/29/22 07:48 Pulse 89 03/29/22 07:48 Resp 19 03/29/22 07:48 BP 134/76 03/29/22 07:48 Pulse Ox 95 03/29/22 07:48 O2 Del Method 03/29/22 07:48 BMI result Body Mass Index 29.2 Const: Other: General: AO X 3, no acute distress Resp: CTA bilateral CVS: S1,S2,RRR GI: +BS, NT, no distention Skin: No rash, drains in place, Neuro: motor grossly intact Psych: appropriate affect Objective Data Active Medications Duloxetine HCl (Duloxetine Hcl 60 Mg Capsule.Dr) 60 mg PO BEDTIME [facility] Last Admin: 03/28/22 22:00 Dose: 60 mg Documented By: YASMINE Heparin Sodium (Porcine) (Heparin Sodium,Porcine 5,000 Unit/Ml Vial) 5,000 unit SUBCUT Q12H [facility] Last Admin: 03/29/22 06:01 Dose: 5,000 unit Documented By: YASMINE Hydromorphone HCl (Hydromorphone Hcl 0.5 Mg/0.5 Ml Syringe) 0.5 mg IVPUSH Q2H PRN; Protocol PRN Reason: Pain, Severe (Pain Scale 7-10) Last Admin: 03/29/22 06:07 Dose: 0.5 mg Documented By: YASMINE Potassium Chloride/Sodium Chloride (Kcl 20 Meq In 0.45% Sod) 20 meq in 1,000 mls @ 80 mls/hr IVCONT .[id number] [facility] Last Infusion: 03/29/22 08:35 Dose: 125 mls/hr Documented By: TK Promethazine HCl 12.5 mg/ (Sodium Chloride) 50.5 mls @ 202 mls/hr IV Q6H PRN PRN Reason: Vomiting Last Infusion: 03/28/22 22:30 Dose: 0 mls/hr Documented By: YASMINE Ceftriaxone Sodium 2 gm/ (Sodium Chloride) 50 mls @ 100 mls/hr IV Q24H [facility] Last Infusion: 03/28/22 10:30 Dose: 0 mls/hr Documented By: CHRIS Metronidazole (Flagyl) 500 mg in 100 mls @ 100 mls/hr IV Q8H [facility] Ondansetron HCl (Ondansetron Hcl 4 Mg/2 Ml Vial) 4 mg IVPUSH Q6H PRN PRN Reason: Nausea and Vomiting Last Admin: 03/28/22 18:09 Dose: 4 mg Documented By: CHRIS Sodium Chloride (0.9 % Sodium Chloride Flush 3 Ml Syringe) 3 ml IVFLUSH QSHIFT [facility] Last Admin: 03/29/22 09:28 Dose: Not Given Documented By: TK Non-Admin Reason: Duplicate Order Sodium Chloride (0.9 % Sodium Chloride Flush 3 Ml Syringe) 3 ml IVFLUSH QSAKFT [facility] Last Admin: 03/29/22 09:28 Dose: Not Given Documented By: TK Non-Admin Reason: IV Running Labs CBC & Chem 7: 03/29/22 05:54 03/29/22 05:54 Labs: Laboratory Results - last 24 hr 03/29/22 03/29/22 05:54 05:54 MCV 88.7 MCH 29.3 MCHC 33.1 RDW 12.8 Plt Count 340 MPV 8.9 L Immature Gran % (Auto) Cancelled Neut % (Auto) Cancelled Lymph % (Auto) Cancelled [place] % (Auto) Cancelled Eos % (Auto) Cancelled Baso % (Auto) Cancelled Lymph # (Auto) Cancelled [place] # (Auto) Cancelled Eos # (Auto) Cancelled Baso # (Auto) Cancelled Abs Immat Gran (auto) Cancelled Absolute Neuts (auto) Cancelled Absolute Nucleated RBC 0.000 Nucleated RBC % (auto) 0.0 Neutrophils % (Manual) 85 H Band Neutrophils % 6 H Lymphocytes % (Manual) 5 L Monocytes % (Manual) 3 Metamyelocytes % 1 Abs Neuts (Manual) 22.1 H Lymphocytes # (Manual) 1.2 Monocytes # (Manual) 0.7 Metamyelocytes # 0.2 Platelet Estimate NORMAL Plt Morphology Comment NORMAL RBC Morphology NORMAL Anion Gap 18 Estim Creat Clear Calc 114.8 Estimated GFR > 60 Random Glucose 93 Calcium 8.2 L Microbiology Microbiology Results: Microbiology 03/28/22 16:30 Gram Stain - Final Abdominal Fluid 03/25/22 16:53 Gram Stain - Final Abdominal Fluid Routine Culture - Final Escherichia coli Group F Streptococcus Anaerobic Culture - Preliminary Bacteroides fragilis group Assessment and Plan (1) Ruptured appendix: Status: Acute (2) E. coli sepsis: Status: Acute Plan 56 year old female with history of fibromyalgia, anxiety, alcohol abuse, and former smoker with 15 pack year history quit 30 years ago admitted to general surgery for appendicitis with rupture with medical consult placed for management of possible wtihdrawal. # Sepsis d/t Ruptured appendix/petionitis s/p d successful percutaneous drainage, Initially was on Broad spec Abx (Zosyn), Culture showed E. coli that is sensitive so was changed to Ceftriaoxone 2 grams daily, additionally culture now showing B. frlag and adding Flagyl further intervention per surgery, ID consult pending. Repeat CT of 03/28: finding noted MPRESSION: Findings again suggestive of perforated appendicitis. Interval decrease in right lateral abdominal and pelvic fluid collections postdrainage. Increasing smaller fluid collections adjacent to the medial right colon, deep in the bowel mesentery, left anterior pelvis and deep in the pelvis superior to the uterus. Persistent abnormal wall thickening and edema and enhancement of the distal small bowel. Uncertain whether this is related to reactive changes from peritonitis or inflammatory bowel disease. #? IBD--seen by GI see note (no suspcicion of this) #Tachycardia--related to above and is resolved #Alcohol abuse -Consumes 2-3 hard alcohol beverages daily, last drink per patient 5 prior to admission. Has shown no s/x of withdrawal and unlikely to withdraw at this time. CIWA monitoing can stop #Benzo use -no benzos in 10 months (prescribed short-term Valium for pain) #Elevated BP--presently normal will follow Need for hospitalization: defer to surgery Quality Stroke Does the patient have a stroke diagnosis?: No VTE Prior VTE?: No VTE Risk Level:: Surgical - moderate VTE Device Contraindication: N/A - Device Ordered VTE Drug Contraindication: N/A - Med Ordered
[2022-03-29] MEDS: metroNIDAZOLE/NS 500 MG/100 ML PIGGYBACK 100 MG IV ×3 (09:34→23:01)
[2022-03-29] MEDS: cefTRIAXone sodium 2 GM in 0.9 % Sodium Chloride 50 ML IV (10:38)
[2022-03-29 11:43] VITALS: BP 158/80; PULSE 85; RESP 17; TEMP 36.2; O2SAT 96
--- NOTE | 2022-03-29 12:54 | P.PNGS_ITS ---
Subjective Subjective Date of Service: 03/30/22 Interval history: pt feeling a little better today feels tired passing gas and having loose stools hungry Physical Exam Vital Signs: Vital Signs: Last Vital Signs Temp 97.2 F 03/29/22 11:43 Pulse 85 03/29/22 11:43 Resp 17 03/29/22 11:43 BP 158/80 H 03/29/22 11:43 Pulse Ox 96 03/29/22 11:43 O2 Del Method 03/29/22 11:43 BMI result Body Mass Index 29.2 Const: General: cooperative and tired appearing Orientation/consciousness: oriented to person, oriented to place and oriented to time HEENT: Head: Yes normal to inspection Resp: Effort & Inspection: normal respiratory effort Cardio: Rate: regular rate Rhythm: regular rhythm GI: Other: tender rlq and mid abdomen Inspection: Yes normal to inspection Skin: General skin exam: no rashes or lesions noted Neuro: General: oriented to person, oriented to place and oriented to time Objective Data Active Medications Duloxetine HCl (Duloxetine Hcl 60 Mg Capsule.) 60 mg PO BEDTIME [facility] Last Admin: 03/28/22 22:00 Dose: 60 mg Documented By: YASMINE Heparin Sodium (Porcine) (Heparin Sodium,Porcine 5,000 Unit/Ml Vial) 5,000 unit SUBCUT Q12H [facility] Last Admin: 03/29/22 06:01 Dose: 5,000 unit Documented By: YASMINE Hydromorphone HCl (Hydromorphone Hcl 0.5 Mg/0.5 Ml Syringe) 0.5 mg IVPUSH Q2H PRN; Protocol PRN Reason: Pain, Severe (Pain Scale 7-10) Last Admin: 03/29/22 06:07 Dose: 0.5 mg Documented By: YASMINE Potassium Chloride/Sodium Chloride (Kcl 20 Meq In 0.45% Sod) 20 meq in 1,000 mls @ 80 mls/hr IVCONT .[id number] [facility] Last Infusion: 03/29/22 11:13 Dose: 125 mls/hr Documented By: TK Promethazine HCl 12.5 mg/ (Sodium Chloride) 50.5 mls @ 202 mls/hr IV Q6H PRN PRN Reason: Vomiting Last Infusion: 03/28/22 22:30 Dose: 0 mls/hr Documented By: YASMINE Ceftriaxone Sodium 2 gm/ (Sodium Chloride) 50 mls @ 100 mls/hr IV Q24H [facility] Last Infusion: 03/29/22 11:10 Dose: 0 mls/hr Documented By: KT Metronidazole (Flagyl) 500 mg in 100 mls @ 100 mls/hr IV Q8H [facility] Last Infusion: 03/29/22 10:45 Dose: 0 mls/hr Documented By: TK Ondansetron HCl (Ondansetron Hcl 4 Mg/2 Ml Vial) 4 mg IVPUSH Q6H PRN PRN Reason: Nausea and Vomiting Last Admin: 03/28/22 18:09 Dose: 4 mg Documented By: CHRIS Sodium Chloride (0.9 % Sodium Chloride Flush 3 Ml Syringe) 3 ml IVFLUSH QSRIFT [facility] Last Admin: 03/29/22 09:28 Dose: Not Given Documented By: TK Non-Admin Reason: Duplicate Order Sodium Chloride (0.9 % Sodium Chloride Flush 3 Ml Syringe) [facility] Last Admin: 03/29/22 09:28 Dose: Not Given Documented By: TK Non-Admin Reason: IV Running Labs CBC & Chem 7: 03/30/22 05:42 03/30/22 05:42 Labs: Laboratory Results - last 24 hr 03/29/22 03/29/22 05:54 05:54 MCV 88.7 MCH 29.3 MCHC 33.1 RDW 12.8 Plt Count 340 MPV 8.9 L Immature Gran % (Auto) Cancelled Neut % (Auto) Cancelled Lymph % (Auto) Cancelled Early % (Auto) Cancelled Eos % (Auto) Cancelled Baso % (Auto) Cancelled Lymph # (Auto) Cancelled Early # (Auto) Cancelled Eos # (Auto) Cancelled Baso # (Auto) Cancelled Abs Immat Gran (auto) Cancelled Absolute Neuts (auto) Cancelled Absolute Nucleated RBC 0.000 Nucleated RBC % (auto) 0.0 Neutrophils % (Manual) 85 H Band Neutrophils % 6 H Lymphocytes % (Manual) 5 L Monocytes % (Manual) 3 Metamyelocytes % 1 Abs Neuts (Manual) 22.1 H Lymphocytes # (Manual) 1.2 Monocytes # (Manual) 0.7 Metamyelocytes # 0.2 Platelet Estimate NORMAL Plt Morphology Comment NORMAL RBC Morphology NORMAL Anion Gap 18 Estim Creat Clear Calc 114.8 Estimated GFR > 60 Random Glucose 93 Calcium 8.2 L Microbiology Microbiology Results: Microbiology 03/25/22 16:53 Gram Stain - Final Abdominal Fluid Routine Culture - Final Escherichia coli Group F Streptococcus Anaerobic Culture - Final Bacteroides fragilis group 03/28/22 16:30 Gram Stain - Final Abdominal Fluid Anaerobic Culture - Preliminary Culture in progress. Body Fluid Culture - Preliminary Culture in progress. Procedures Date of Service Date of Service: 03/29/22 Progress Note: A&P Assessment and plan (1) Ruptured appendix: Status: Acute Assessment and Plan: pt with ruptured appendicitis and ? IBD by findings of small bowel changes - underwent IR drainage of collections and on antibx rocephin and flagyl. today wbc elevated still but pt says feeling better and passing gas and stool. abdomen is tender in rlq and mid abdo but no peritoneal signs conservative care with interval appy is plan and at this point cont to support i t. reeval labs tomorrow and cont with just ice chips and [place] ice (2) Ileitis, regional: Status: Acute Time Spent With Patient Time: Total time spent is greater than 50% in coordination of care (as documented) at patient's floor/unit and/or counseling patient: Quality Stroke Does the patient have a stroke diagnosis?: No VTE Prior VTE?: No VTE Risk Level:: Surgical - moderate VTE Device Contraindication: N/A - Device Ordered VTE Drug Contraindication: N/A - Med Ordered
[2022-03-29] MEDS: ondansetron HCL 4 MG/2 ML VIAL IVPUSH ×2 (13:28→20:07)
[2022-03-29 15:50] VITALS: BP 138/80; PULSE 94; RESP 18; TEMP 36.7; O2SAT 97
--- NOTE | 2022-03-29 17:22 | P.PNGI_ITS ---
Subjective Subjective Date of Service: 03/29/22 Interval History: Status post IR guided drain placement yesterday. Appears in no distress at bedside exam. Reports tolerating it Telma as without any discomfort or increased abdominal pain. Has been passing flatus. . Critical Care Time (minutes): 0 Physical Exam 2 Vital Signs: Vital Signs: Last Vital Signs Temp 98.1 F 03/29/22 15:50 Pulse 94 03/29/22 15:50 Resp 18 03/29/22 15:50 BP 138/80 03/29/22 15:50 Pulse Ox 97 03/29/22 15:50 O2 Del Method 03/29/22 15:50 BMI result Body Mass Index 29.2 General appearance: No acute distress Abdomen: Soft, mildly distended, mild tenderness to palpation, drain with <50cc of purulent drainage Objective Data Labs CBC & Chem 7: 03/29/22 05:54 03/29/22 05:54 Labs: Laboratory Results - last 24 hr 03/29/22 03/29/22 05:54 05:54 WBC 24.3 H RBC 3.99 L Hgb 11.7 L Hct 35.4 L MCV 88.7 MCH 29.3 MCHC 33.1 RDW 12.8 Plt Count 340 MPV 8.9 L Immature Gran % (Auto) Cancelled Neut % (Auto) Cancelled Lymph % (Auto) Cancelled [place] % (Auto) Cancelled Eos % (Auto) Cancelled Baso % (Auto) Cancelled Lymph # (Auto) Cancelled [place] # (Auto) Cancelled Eos # (Auto) Cancelled Baso # (Auto) Cancelled Abs Immat Gran (auto) Cancelled Absolute Neuts (auto) Cancelled Absolute Nucleated RBC 0.000 Nucleated RBC % (auto) 0.0 Neutrophils % (Manual) 85 H Band Neutrophils % 6 H Lymphocytes % (Manual) 5 L Monocytes % (Manual) 3 Metamyelocytes % 1 Abs Neuts (Manual) 22.1 H Lymphocytes # (Manual) 1.2 Monocytes # (Manual) 0.7 Metamyelocytes # 0.2 Platelet Estimate NORMAL Plt Morphology Comment NORMAL RBC Morphology NORMAL Sodium 137 Potassium 3.7 Chloride 99 Carbon Dioxide 24 Anion Gap 18 BUN 6 L Creatinine 0.53 Estim Creat Clear Calc 114.8 Estimated GFR > 60 Random Glucose 93 Calcium 8.2 L Microbiology Microbiology Results: Microbiology 03/28/22 16:30 Abdominal Fluid Gram Stain - Final 03/28/22 16:30 Abdominal Fluid Anaerobic Culture - Preliminary Culture in progress. 03/28/22 16:30 Abdominal Fluid Body Fluid Culture - Preliminary Culture in progress. 03/25/22 16:53 Abdominal Fluid Gram Stain - Final 03/25/22 16:53 Abdominal Fluid Routine Culture - Final Escherichia coli Group F Streptococcus 03/25/22 16:53 Abdominal Fluid Anaerobic Culture - Final Bacteroides fragilis group 03/25/22 16:53 Abscess Appendiceal Gram Stain - Final 03/25/22 16:53 Abscess Appendiceal Routine Culture - Final Escherichia coli Group F Streptococcus Procedures Date of Service Date of Service: 03/29/22 Progress Note: A&P Assessment and plan (1) Ruptured appendix: Status: Acute (2) Ileitis, regional: Status: Acute Plan - Fluid cultures with typical bowel lara. White count continues to rise, consider escalation of antibiotic therapy. - Hep serologies, TSPOT and TPMT ordered - Will sign off. Outpatient follow up will be set up for ? Crohns. Please call back for any questions or concerns. Time Spent With Patient Time: Total time spent is greater than 50% in coordination of care (as documented) at patient's floor/unit and/or counseling patient: Quality Stroke Does the patient have a stroke diagnosis?: No VTE Prior VTE?: No VTE Risk Level:: Surgical - moderate VTE Device Contraindication: N/A - Device Ordered VTE Drug Contraindication: N/A - Med Ordered
[2022-03-29 19:18] VITALS: BP 150/82; PULSE 99; RESP 18; TEMP 36.8; O2SAT 97
[2022-03-29] MEDS: DULoxetine HCl 60 MG CAPSULE.DR PO (20:07)
[2022-03-30] VITALS (7 sets, daily range): BP systolic 131–168; BP diastolic 70–81; PULSE 81–102; RESP 16–18; TEMP 36–36.8; O2SAT 96–99
[2022-03-30] MEDS: ondansetron HCL 4 MG/2 ML VIAL IVPUSH ×3 (02:19→20:35)
[2022-03-30] MEDS: HYDROmorphone HCl 0.5 MG/0.5 ML SYRINGE IVPUSH ×4 (02:19→20:35)
[2022-03-30] MEDS: KCl 20 mEq in 0.45% Sod 20 MEQ/1,000 ML IV.SOLN 80 MEQ IVCONT ×2 (04:28→17:02)
[2022-03-30] MEDS: Heparin Sodium,Porcine 5,000 UNIT/ML VIAL 5000 UNIT SUBCUT ×2 (05:12→17:43)
[2022-03-30 06:29] LABS: Baso%MD 0.6 %; Eos%MD 0.2 %; Hematocrit 34.2 % (37.0-47.0); Hemoglobin 11.4 g/dl (12.0-16.0); IG%MD 8.7 %; Lymph%MD 5.9 %; Mean Corpuscular HGB Conc 33.3 g/dl (31.0-35.0); Mean Corpuscular Hemoglobin 29.2 pg (27.0-33.0); Mean Corpuscular Volume 87.7 fL (80.0-98.0); Mean Platelet Volume 9.2 fL (9.4-12.3); Mono%MD 3.9 %; Neut%MD 80.7 %; Platelet Count 337 X10*3/uL (160-400); Red Cell Distribution Width 12.8 % (11.0-16.0); White Blood Count 22.4 X10*3/uL (4.8-10.8)
[2022-03-30 07:18] LABS: Anion Gap 16 (12-20); Blood Urea Nitrogen 4 mg/dL (9-16); Calcium 7.9 mg/dL (8.4-10.2); Carbon Dioxide 25 mmol/L (22-29); Chloride 99 mmol/L (96-108); Creatinine Clr Calc Pharmacy 121.7; Estimated Glomerular Filt Rate > 60; Glucose Random 93 mg/dL (60-115); Potassium 3.5 mmol/L (3.3-5.1); Sodium 136 mmol/L (135-145)
[2022-03-30 07:21] LABS: Band Neutrophils Percent 14 % (3-5); Lymphocytes Absolute Manual 0.7 X10*3/uL (1.2-4.9); Lymphocytes Percent Manual 3 % (20-40); Metamyelocytes Absolute 0.9 X10*3/uL; Metamyelocytes Percent 4 %; Monocytes Absolute Manual 0.2 X10*3/uL (0.1-1.2); Monocytes Percent Manual 1 % (2-11); Neutrophils Absolute Manual 20.6 X10*3/uL (2.0-8.3); Neutrophils Percent Manual 78 % (45-73)
[2022-03-30 07:22] LABS: Large Platelet PRESENT; Platelet Estimate NORMAL (NORMAL); Platelet Morphology Comment NOTED; RBC Morphology NORMAL
--- NOTE | 2022-03-30 08:33 | P.PNIM_ITS ---
Subjective Subjective Date of Service: 03/30/22 Interval History: Status post IR guided drain placement yesterday. Appears in no distress at bedside exam. Reports tolerating it Telma as without any discomfort or increased abdominal pain. Has been passing flatus and having bowel movment. No fever WBC is going down Review of Systems no fever abd pain Physical Exam Vital Signs: Vital Signs: Last Vital Signs Temp 97.7 F 03/30/22 04:00 Pulse 88 03/30/22 04:00 Resp 18 03/30/22 04:00 BP 131/76 03/30/22 04:00 Pulse Ox 96 03/30/22 04:00 O2 Del Method 03/30/22 04:00 BMI result Body Mass Index 29.2 Const: Other: General: AO X 3, no acute distress Resp: CTA bilateral CVS: S1,S2,RRR GI: +BS, NT, no distention Skin: No rash, drains in place, Neuro: motor grossly intact Psych: appropriate affect Objective Data Active Medications Duloxetine HCl (Duloxetine Hcl 60 Mg Capsule.Dr) 60 mg PO BEDTIME [facility] Last Admin: 03/29/22 20:07 Dose: 60 mg Documented By: YASMINE Heparin Sodium (Porcine) (Heparin Sodium,Porcine 5,000 Unit/Ml Vial) 5,000 unit SUBCUT Q12H [facility] Last Admin: 03/30/22 05:12 Dose: 5,000 unit Documented By: YASMINE Hydromorphone HCl (Hydromorphone Hcl 0.5 Mg/0.5 Ml Syringe) 0.5 mg IVPUSH Q2H PRN; Protocol PRN Reason: Pain, Severe (Pain Scale 7-10) Last Admin: 03/30/22 02:19 Dose: 0.5 mg Documented By: YASMINE Potassium Chloride/Sodium Chloride (Kcl 20 Meq In 0.45% Sod) 20 meq in 1,000 mls @ 80 mls/hr IVCONT .[id number] [facility] Last Admin: 03/30/22 04:28 Dose: 80 mls/hr Documented By: YASMINE Promethazine HCl 12.5 mg/ (Sodium Chloride) 50.5 mls @ 202 mls/hr IV Q6H PRN PRN Reason: Vomiting Last Infusion: 03/28/22 22:30 Dose: 0 mls/hr Documented By: YASMINE Ceftriaxone Sodium 2 gm/ (Sodium Chloride) 50 mls @ 100 mls/hr IV Q24H [facility] Last Infusion: 03/29/22 11:10 Dose: 0 mls/hr Documented By: TK Metronidazole (Flagyl) 500 mg in 100 mls @ 100 mls/hr IV Q8H [facility] Last Infusion: 03/30/22 00:16 Dose: 0 mls/hr Documented By: YASMINE Ondansetron HCl (Ondansetron Hcl 4 Mg/2 Ml Vial) 4 mg IVPUSH Q6H PRN PRN Reason: Nausea and Vomiting Last Admin: 03/30/22 02:19 Dose: 4 mg Documented By: YASMINE Sodium Chloride (0.9 % Sodium Chloride Flush 3 Ml Syringe) 3 ml IVFLUSH [facility] Last Admin: 03/29/22 21:50 Dose: Not Given Documented By: YASMINE Non-Admin Reason: IV Running Sodium Chloride (0.9 % Sodium Chloride Flush 3 Ml Syringe) 3 ml IVFLUSH [facility] Last Admin: 03/29/22 21:51 Dose: Not Given Documented By: YASMINE Non-Admin Reason: IV Running Labs CBC & Chem 7: 03/30/22 05:42 03/30/22 05:42 Labs: Laboratory Results - last 24 hr 03/30/22 03/30/22 05:42 05:42 MCV 87.7 MCH 29.2 MCHC 33.3 RDW 12.8 Plt Count 337 MPV 9.2 L Absolute Nucleated RBC 0.000 Nucleated RBC % (auto) 0.0 Neutrophils % (Manual) 78 H Band Neutrophils % 14 H Lymphocytes % (Manual) 3 L Monocytes % (Manual) 1 L Metamyelocytes % 4 Abs Neuts (Manual) 20.6 H Lymphocytes # (Manual) 0.7 L Monocytes # (Manual) 0.2 Metamyelocytes # 0.9 Platelet Estimate NORMAL Large Platelets PRESENT Plt Morphology Comment NOTED RBC Morphology NORMAL Anion Gap 16 Estim Creat Clear Calc 121.7 Estimated GFR > 60 Random Glucose 93 Calcium 7.9 L Microbiology Microbiology Results: Microbiology 03/28/22 16:30 Gram Stain - Final Abdominal Fluid Anaerobic Culture - Preliminary Culture in progress. Body Fluid Culture - Preliminary Culture in progress. 03/25/22 16:53 Gram Stain - Final Abdominal Fluid Routine Culture - Final Escherichia coli Group F Streptococcus Anaerobic Culture - Final Bacteroides fragilis group Assessment and Plan (1) Ruptured appendix: Status: Acute (2) E. coli sepsis: Status: Acute Plan 56 year old female with history of fibromyalgia, anxiety, alcohol abuse, and former smoker with 15 pack year history quit 30 years ago admitted to general surgery for appendicitis with rupture with medical consult placed for management of possible wtihdrawal. # Sepsis d/t Ruptured appendix/petionitis s/p d successful percutaneous drainage, Initially was on Broad spec Abx (Zosyn), Culture showed E. coli that is sensitive so was changed to Ceftriaoxone 2 grams daily, additionally culture now showing B. frlag and added Flagyl 03/29 with good effect further intervention per surgery, ID consult pending. Repeat CT of 03/28: finding noted MPRESSION: Findings again suggestive of perforated appendicitis. Interval decrease in right lateral abdominal and pelvic fluid collections postdrainage. Increasing smaller fluid collections adjacent to the medial right colon, deep in the bowel mesentery, left anterior pelvis and deep in the pelvis superior to the uterus. Persistent abnormal wall thickening and edema and enhancement of the distal small bowel. Uncertain whether this is related to reactive changes from peritonitis or inflammatory bowel disease. #? IBD-- see by GI with following remarks - Hep serologies, TSPOT and TPMT ordered - Outpatient follow up will be set up for ? Crohns. Please call back for any questions or concerns.--Dr Grajeda #Tachycardia--related to above and is resolved #Alcohol abuse -Consumes 2-3 hard alcohol beverages daily, last drink per patient 5 prior to admission. Has shown no s/x of withdrawal and unlikely to withdraw at this time. CIWA monitoing can stop #Benzo use -no benzos in 10 months (prescribed short-term Valium for pain) #Elevated BP--presently normal will follow Need for hospitalization: defer to surgery Quality Stroke Does the patient have a stroke diagnosis?: No VTE Prior VTE?: No VTE Risk Level:: Surgical - moderate VTE Device Contraindication: N/A - Device Ordered VTE Drug Contraindication: N/A - Med Ordered
[2022-03-30] MEDS: metroNIDAZOLE/NS 500 MG/100 ML PIGGYBACK 100 MG IV ×3 (09:03→23:33)
[2022-03-30] MEDS: cefTRIAXone sodium 2 GM in 0.9 % Sodium Chloride 50 ML IV (10:28)
--- NOTE | 2022-03-30 11:40 | PM.PNGS ---
Subjective Subjective Date of Service: 03/30/22 Interval history: pt feels better looks much better, abdomen less tender. still passing gas and stool and tolerated [place] ice but felt a little full more drainage from drains A-anterior right - not much B- back right - moderate purulent appearance C- left side - some liquid serosanguinous Physical Exam Vital Signs: Vital Signs: Last Vital Signs Temp 97.2 F 03/30/22 11:10 Pulse 102 H 03/30/22 11:10 Resp 17 03/30/22 11:10 BP 134/75 03/30/22 11:10 Pulse Ox 97 03/30/22 11:10 O2 Del Method 03/30/22 11:10 BMI result Body Mass Index 29.2 Resp: Effort & Inspection: normal respiratory effort Auscultation: clear to auscultation bilaterally Cardio: Rate: regular rate Rhythm: regular rhythm GI: Other: abdo soft nontender nondistended great bowel sounds Psych: Appearance: grossly normal Mental Status: mental status grossly normal Speech and movement: Normal speech and movement present Affect: normal affect Attitude: cooperative Thought process: Normal thought process present Thought content: Normal thought content present Objective Data Active Medications Duloxetine HCl (Duloxetine Hcl 60 Mg Capsule.Dr) 60 mg PO BEDTIME [facility] Last Admin: 03/29/22 20:07 Dose: 60 mg Documented By: YASMINE Heparin Sodium (Porcine) (Heparin Sodium,Porcine 5,000 Unit/Ml Vial) 5,000 unit SUBCUT Q12H [facility] Last Admin: 03/30/22 05:12 Dose: 5,000 unit Documented By: YASMINE Hydromorphone HCl (Hydromorphone Hcl 0.5 Mg/0.5 Ml Syringe) 0.5 mg IVPUSH Q2H PRN; Protocol PRN Reason: Pain, Severe (Pain Scale 7-10) Last Admin: 03/30/22 09:02 Dose: 0.5 mg Documented By: TK Potassium Chloride/Sodium Chloride (Kcl 20 Meq In 0.45% Sod) 20 meq in 1,000 mls @ 80 mls/hr IVCONT .[id number] [facility] Last Infusion: 03/30/22 11:01 Dose: 80 mls/hr Documented By: TK Promethazine HCl 12.5 mg/ (Sodium Chloride) 50.5 mls @ 202 mls/hr IV Q6H PRN PRN Reason: Vomiting Last Infusion: 03/28/22 22:30 Dose: 0 mls/hr Documented By: YASMINE Ceftriaxone Sodium 2 gm/ (Sodium Chloride) 50 mls @ 100 mls/hr IV Q24H [facility] Last Infusion: 03/30/22 11:05 Dose: 0 mls/hr Documented By: TK Metronidazole (Flagyl) 500 mg in 100 mls @ 100 mls/hr IV Q8H [facility] Last Infusion: 03/30/22 10:14 Dose: 0 mls/hr Documented By: TK Ondansetron HCl (Ondansetron Hcl 4 Mg/2 Ml Vial) 4 mg IVPUSH Q6H PRN PRN Reason: Nausea and Vomiting Last Admin: 03/30/22 09:02 Dose: 4 mg Documented By: TK Sodium Chloride (0.9 % Sodium Chloride Flush 3 Ml Syringe) 3 ml IVFLUSH QSFLFT [facility] Last Admin: 03/30/22 09:03 Dose: Not Given Documented By: TK Non-Admin Reason: IV Running Sodium Chloride (0.9 % Sodium Chloride Flush 3 Ml Syringe) 3 ml IVFLUSH QSHIFT [facility] Last Admin: 03/30/22 09:03 Dose: Not Given Documented By: TK Non-Admin Reason: Duplicate Order Labs CBC & Chem 7: 03/30/22 05:42 03/30/22 05:42 Labs: Laboratory Results - last 24 hr 03/30/22 03/30/22 05:42 05:42 MCV 87.7 MCH 29.2 MCHC 33.3 RDW 12.8 Plt Count 337 MPV 9.2 L Absolute Nucleated RBC 0.000 Nucleated RBC % (auto) 0.0 Neutrophils % (Manual) 78 H Band Neutrophils % 14 H Lymphocytes % (Manual) 3 L Monocytes % (Manual) 1 L Metamyelocytes % 4 Abs Neuts (Manual) 20.6 H Lymphocytes # (Manual) 0.7 L Monocytes # (Manual) 0.2 Metamyelocytes # 0.9 Platelet Estimate NORMAL Large Platelets PRESENT Plt Morphology Comment NOTED RBC Morphology NORMAL Anion Gap 16 Estim Creat Clear Calc 121.7 Estimated GFR > 60 Random Glucose 93 Calcium 7.9 L Microbiology Microbiology Results: Microbiology 03/28/22 16:30 Gram Stain - Final Abdominal Fluid Anaerobic Culture - Preliminary Culture in progress. Body Fluid Culture - Preliminary Culture in progress. 03/25/22 16:53 Gram Stain - Final Abdominal Fluid Routine Culture - Final Escherichia coli Group F Streptococcus Anaerobic Culture - Final Bacteroides fragilis group Procedures Date of Service Date of Service: 03/30/22 Progress Note: A&P Assessment and plan (1) Ruptured appendix: Status: Acute Assessment and Plan: 56 year old female with probable ruputed appy in ? setting of IBD - doing much better clinically and WBC a little lower but bands still up. cont with npo and just ice cont with ivf cont with iv antibx - flagyl added to ceftriaxone and all orgs should be covered ambulate IS appreciate med team following (2) Ileitis, regional: Status: Acute Time Spent With Patient Time: Total time spent is greater than 50% in coordination of care (as documented) at patient's floor/unit and/or counseling patient: Quality Stroke Does the patient have a stroke diagnosis?: No VTE Prior VTE?: No VTE Risk Level:: Surgical - moderate VTE Device Contraindication: N/A - Device Ordered VTE Drug Contraindication: N/A - Med Ordered
[2022-03-30] MEDS: DULoxetine HCl 60 MG CAPSULE.DR PO (20:36)
[2022-03-31] MEDS: HYDROmorphone HCl 0.5 MG/0.5 ML SYRINGE IVPUSH ×5 (00:05→23:06)
[2022-03-31 03:31] VITALS: BP 136/67; PULSE 70; RESP 18; TEMP 36.2; O2SAT 96
[2022-03-31] MEDS: KCl 20 mEq in 0.45% Sod 20 MEQ/1,000 ML IV.SOLN 80 MEQ IVCONT ×2 (05:23→18:26)
[2022-03-31] MEDS: Heparin Sodium,Porcine 5,000 UNIT/ML VIAL 5000 UNIT SUBCUT ×2 (05:24→17:15)
[2022-03-31] MEDS: ondansetron HCL 4 MG/2 ML VIAL IVPUSH ×3 (05:31→20:07)
[2022-03-31 07:28] LABS: Hematocrit 33.7 % (37.0-47.0); Hemoglobin 11.3 g/dl (12.0-16.0); Mean Corpuscular HGB Conc 33.5 g/dl (31.0-35.0); Mean Corpuscular Hemoglobin 29.6 pg (27.0-33.0); Mean Corpuscular Volume 88.2 fL (80.0-98.0); Mean Platelet Volume 9.4 fL (9.4-12.3); Platelet Count 369 X10*3/uL (160-400); Red Blood Count 3.82 X10*6/uL (4.20-5.50); Red Cell Distribution Width 12.8 % (11.0-16.0); White Blood Count 18.3 X10*3/uL (4.8-10.8)
--- NOTE | 2022-03-31 07:40 | P.PNGS_ITS ---
Subjective Subjective Date of Service: 03/31/22 Patient reports: feels better Interval history: The patient reports that she feels much better. She is passing gas and moving her bowels. Clinically, she looks better than when I saw her on Thursday. She continues to pass gas but has not had much bowel movements and reports that her abdominal bloating has almost completely resolved. She notes continued malodorous drainage and requested I speak with her on speaker phone regarding today's plan. She otherwise denies any chest pain, difficulty breathing, shortness of breath or lower extremity pain. Physical Exam Vital Signs: Vital Signs: Last Vital Signs Temp 97.1 F 03/31/22 03:31 Pulse 70 03/31/22 03:31 Resp 18 03/31/22 03:31 BP 136/67 03/31/22 03:31 Pulse Ox 96 03/31/22 03:31 O2 Del Method 03/31/22 03:31 BMI result Body Mass Index 29.2 On exam she is nontoxic and in good spirits Her abdomen is less distended and has much less tympany. There is minimal discomfort and certainly no rebound, rigidity or guarding Her drains continue to put out purulence material now that they have been adjusted Objective Data Active Medications Duloxetine HCl (Duloxetine Hcl 60 Mg Capsule.Dr) 60 mg PO BEDTIME [facility] Last Admin: 03/30/22 20:36 Dose: 60 mg Documented By: DUGLAS Heparin Sodium (Porcine) (Heparin Sodium,Porcine 5,000 Unit/Ml Vial) 5,000 unit SUBCUT Q12H [facility] Last Admin: 03/31/22 05:24 Dose: 5,000 unit Documented By: DUGLAS Hydromorphone HCl (Hydromorphone Hcl 0.5 Mg/0.5 Ml Syringe) 0.5 mg IVPUSH Q2H PRN; Protocol PRN Reason: Pain, Severe (Pain Scale 7-10) Last Admin: 03/31/22 05:31 Dose: 0.5 mg Documented By: DUGLAS Potassium Chloride/Sodium Chloride (Kcl 20 Meq In 0.45% Sod) 20 meq in 1,000 mls @ 80 mls/hr IVCONT .[id number] [facility] Last Admin: 03/31/22 05:23 Dose: 80 mls/hr Documented By: DUGLAS Promethazine HCl 12.5 mg/ (Sodium Chloride) 50.5 mls @ 202 mls/hr IV Q6H PRN PRN Reason: Vomiting Last Infusion: 03/31/22 00:14 Dose: 0 mls/hr Documented By: DUGLAS Ceftriaxone Sodium 2 gm/ (Sodium Chloride) 50 mls @ 100 mls/hr IV Q24H [facility] Last Infusion: 03/30/22 11:05 Dose: 0 mls/hr Documented By: TK Metronidazole (Flagyl) 500 mg in 100 mls @ 100 mls/hr IV Q8H [facility] Last Infusion: 03/31/22 01:15 Dose: 0 mls/hr Documented By: DUGLAS Ondansetron HCl (Ondansetron Hcl 4 Mg/2 Ml Vial) 4 mg IVPUSH Q6H PRN PRN Reason: Nausea and Vomiting Last Admin: 03/31/22 05:31 Dose: 4 mg Documented By: DUGLAS Sodium Chloride (0.9 % Sodium Chloride Flush 3 Ml Syringe) [facility] Last Admin: 03/31/22 00:21 Dose: Not Given Documented By: DUGLAS Non-Admin Reason: IV Running Sodium Chloride (0.9 % Sodium Chloride Flush 3 Ml Syringe) 3 ml IVFLUSH [facility] Last Admin: 03/31/22 00:22 Dose: Not Given Documented By: DUGLAS Non-Admin Reason: IV Running Labs CBC & Chem 7: 03/31/22 05:24 03/30/22 05:42 Labs: Laboratory Results - last 24 hr 03/31/22 05:24 MCV 88.2 MCH 29.6 MCHC 33.5 RDW 12.8 Plt Count 369 MPV 9.4 Immature Gran % (Auto) Cancelled Neut % (Auto) Cancelled Lymph % (Auto) Cancelled [place] % (Auto) Cancelled Eos % (Auto) Cancelled Baso % (Auto) Cancelled Lymph # (Auto) Cancelled [place] # (Auto) Cancelled Eos # (Auto) Cancelled Baso # (Auto) Cancelled Abs Immat Gran (auto) Cancelled Absolute Neuts (auto) Cancelled Absolute Nucleated RBC 0.000 Nucleated RBC % (auto) 0.0 Microbiology Microbiology Results: Microbiology 03/28/22 16:30 Gram Stain - Final Abdominal Fluid Anaerobic Culture - Preliminary Culture in progress. Body Fluid Culture - Preliminary Culture in progress. Procedures Date of Service Date of Service: 03/31/22 Progress Note: A&P Assessment and plan (1) Ileitis, regional: Status: Acute (2) E. coli sepsis: Status: Acute (3) Abnormal CT of the abdomen: Status: Acute (4) Ruptured appendix: Status: Acute Plan The patient appears to clinically improved over the past 2 days. Via conference call I spoke with the patient and her and reviewed the following: The patient may have a perforated appendix either secondary to appendicitis or Crohn's disease although a malignancy would be less likely and possible. Draining the infection and determining the etiology would be preferable to operating and possibly resecting tissue that did not need to be resected. In cases of inflammatory bowel disease, anastomoses can fail and require reope ration or diversion with an ostomy. Ideally, a colonoscopy to assess for polyps/malignancy and biopsy the terminal ileum and colon would be ideal before proceeding with surgery but this will take several months of healing to reach that point. If the patient does not make progress, operative intervention either via laparoscopy or operative intervention will be required. The patient and her both agree that she is feeling much better than over the weekend and consequently would like to co ntinue the current management options. Given that her white blood cell count is down and her vitals are all normal and she has GI function, this seems to be a reasonable option at this point. Continue present management will re-evaluate her later today. The patient and her 's questions seemed to be satisfactorily answered. Time Spent With Patient Time: Total time spent is greater than 50% in coordination of care (as documented) at patient's floor/unit and/or counseling patient: Quality Stroke Does the patient have a stroke diagnosis?: No VTE Prior VTE?: No VTE Risk Level:: Surgical - moderate VTE Device Contraindication: N/A - Device Ordered VTE Drug Contraindication: N/A - Med Ordered
[2022-03-31 08:00] VITALS: BP 133/73; PULSE 78; RESP 20; TEMP 36.7; O2SAT 94
[2022-03-31 08:00] LABS: Band Neutrophils Percent 7 % (3-5); Lymphocytes Absolute Manual 0.5 X10*3/uL (1.2-4.9); Lymphocytes Percent Manual 3 % (20-40); Metamyelocytes Absolute 0.7 X10*3/uL; Metamyelocytes Percent 4 %; Monocytes Absolute Manual 0.7 X10*3/uL (0.1-1.2); Monocytes Percent Manual 4 % (2-11); Neutrophils Absolute Manual 16.3 X10*3/uL (2.0-8.3); Neutrophils Percent Manual 82 % (45-73); Platelet Estimate NORMAL (NORMAL); Platelet Morphology Comment NORMAL; RBC Morphology NORMAL
--- NOTE | 2022-03-31 08:00 | PM.PNGS ---
Subjective Subjective Date of Service: 03/31/22 Physical Exam Vital Signs: Vital Signs: Last Vital Signs Temp 97.1 F 03/31/22 03:31 Pulse 70 03/31/22 03:31 Resp 18 03/31/22 03:31 BP 136/67 03/31/22 03:31 Pulse Ox 96 03/31/22 03:31 O2 Del Method 03/31/22 03:31 BMI result Body Mass Index 29.2 Objective Data Active Medications Duloxetine HCl (Duloxetine Hcl 60 Mg Capsule.Dr) 60 mg PO BEDTIME [facility] Last Admin: 03/30/22 20:36 Dose: 60 mg Documented By: DUGLAS Heparin Sodium (Porcine) (Heparin Sodium,Porcine 5,000 Unit/Ml Vial) 5,000 unit SUBCUT Q12H [facility] Last Admin: 03/31/22 05:24 Dose: 5,000 unit Documented By: DUGLAS Hydromorphone HCl (Hydromorphone Hcl 0.5 Mg/0.5 Ml Syringe) 0.5 mg IVPUSH Q2H PRN; Protocol PRN Reason: Pain, Severe (Pain Scale 7-10) Last Admin: 03/31/22 05:31 Dose: 0.5 mg Documented By: DUGLAS Potassium Chloride/Sodium Chloride (Kcl 20 Meq In 0.45% Sod) 20 meq in 1,000 mls @ 80 mls/hr IVCONT .[id number] [facility] Last Admin: 03/31/22 05:23 Dose: 80 mls/hr Documented By: DUGLAS Promethazine HCl 12.5 mg/ (Sodium Chloride) 50.5 mls @ 202 mls/hr IV Q6H PRN PRN Reason: Vomiting Last Infusion: 03/31/22 00:14 Dose: 0 mls/hr Documented By: DUGLAS Ceftriaxone Sodium 2 gm/ (Sodium Chloride) 50 mls @ 100 mls/hr IV Q24H [facility] Last Infusion: 03/30/22 11:05 Dose: 0 mls/hr Documented By: TK Metronidazole (Flagyl) 500 mg in 100 mls @ 100 mls/hr IV Q8H [facility] Last Infusion: 03/31/22 01:15 Dose: 0 mls/hr Documented By: DUGLAS Ondansetron HCl (Ondansetron Hcl 4 Mg/2 Ml Vial) 4 mg IVPUSH Q6H PRN PRN Reason: Nausea and Vomiting Last Admin: 03/31/22 05:31 Dose: 4 mg Documented By: DUGLAS Sodium Chloride (0.9 % Sodium Chloride Flush 3 Ml Syringe) 3 ml IVFLUSH [facility] Last Admin: 03/31/22 00:21 Dose: Not Given Documented By: DUGLAS Non-Admin Reason: IV Running Sodium Chloride (0.9 % Sodium Chloride Flush 3 Ml Syringe) 3 ml IVFLUSH [facility] Last Admin: 03/31/22 00:22 Dose: Not Given Documented By: DUGLAS Non-Admin Reason: IV Running Labs CBC & Chem 7: 03/31/22 05:24 03/30/22 05:42 Labs: Laboratory Results - last 24 hr 03/31/22 05:24 MCV 88.2 MCH 29.6 MCHC 33.5 RDW 12.8 Plt Count 369 MPV 9.4 Immature Gran % (Auto) Cancelled Neut % (Auto) Cancelled Lymph % (Auto) Cancelled [place] % (Auto) Cancelled Eos % (Auto) Cancelled Baso % (Auto) Cancelled Lymph # (Auto) Cancelled [place] # (Auto) Cancelled Eos # (Auto) Cancelled Baso # (Auto) Cancelled Abs Immat Gran (auto) Cancelled Absolute Neuts (auto) Cancelled Absolute Nucleated RBC 0.000 Nucleated RBC % (auto) 0.0 Microbiology Microbiology Results: Microbiology 03/28/22 16:30 Gram Stain - Final Abdominal Fluid Anaerobic Culture - Preliminary Culture in progress. Body Fluid Culture - Preliminary Culture in progress. Progress Note: A&P Time Spent With Patient Time: Total time spent is greater than 50% in coordination of care (as documented) at patient's floor/unit and/or counseling patient: Quality Stroke Does the patient have a stroke diagnosis?: No VTE Prior VTE?: No VTE Risk Level:: Surgical - moderate VTE Device Contraindication: N/A - Device Ordered VTE Drug Contraindication: N/A - Med Ordered
[2022-03-31] MEDS: metroNIDAZOLE/NS 500 MG/100 ML PIGGYBACK 100 MG IV ×3 (08:57→23:06)
[2022-03-31 09:24] LABS: HBS Num1 2.07 mIU/mL (0-7.99); HBsAGNum1 0.16 S/CO (0.00-0.99); Hepatitis B Core Antibody Nonreactive (Nonreactive); Hepatitis B Surface Antigen Negative (Negative); ~HepC Num1 0.05 S/CO (0.00-0.79); ~Hepatitis B Surface Antibody NONREACTIVE (Nonreactive); ~Hepatitis C Antibody Nonreactive (Nonreactive)
--- NOTE | 2022-03-31 10:03 | MHC.CLN ---
NUTRITION PATIENT NPO 03/25 UNTIL 03/31. CURRENT DIET=CLEAR LIQUIDS WITH ENSURE CLEAR TID. SUPPLEMENT PROVIDES 720 KCALS, 24 G PROTEIN. CONTINUE TO FOLLOW FOR DIET ADVANCEMENT/TOLERANCE.
[2022-03-31] MEDS: cefTRIAXone sodium 2 GM in 0.9 % Sodium Chloride 50 ML IV (10:17)
[2022-03-31 10:19] VITALS: BMI 29.2
--- NOTE | 2022-03-31 11:35 | HO.PM.IMPN ---
Subjective Subjective Date of Service: 03/31/22 Physical Exam Vital Signs: Vital Signs: Last Vital Signs Temp 98.1 F 03/31/22 08:00 Pulse 78 03/31/22 08:00 Resp 20 03/31/22 08:00 BP 133/73 03/31/22 08:00 Pulse Ox 94 03/31/22 08:00 O2 Del Method 03/31/22 08:00 BMI result Body Mass Index 29.2 Objective Data Active Medications Duloxetine HCl (Duloxetine Hcl 60 Mg Capsule.Dr) 60 mg PO BEDTIME [facility] Last Admin: 03/30/22 20:36 Dose: 60 mg Documented By: DUGLAS Heparin Sodium (Porcine) (Heparin Sodium,Porcine 5,000 Unit/Ml Vial) 5,000 unit SUBCUT Q12H [facility] Last Admin: 03/31/22 05:24 Dose: 5,000 unit Documented By: DUGLAS Hydromorphone HCl (Hydromorphone Hcl 0.5 Mg/0.5 Ml Syringe) 0.5 mg IVPUSH Q2H PRN; Protocol PRN Reason: Pain, Severe (Pain Scale 7-10) Last Admin: 03/31/22 05:31 Dose: 0.5 mg Documented By: DUGLAS Potassium Chloride/Sodium Chloride (Kcl 20 Meq In 0.45% Sod) 20 meq in 1,000 mls @ 80 mls/hr IVCONT .[id number] [facility] Last Admin: 03/31/22 05:23 Dose: 80 mls/hr Documented By: DUGLAS Promethazine HCl 12.5 mg/ (Sodium Chloride) 50.5 mls @ 202 mls/hr IV Q6H PRN PRN Reason: Vomiting Last Infusion: 03/31/22 00:14 Dose: 0 mls/hr Documented By: DUGLAS Ceftriaxone Sodium 2 gm/ (Sodium Chloride) 50 mls @ 100 mls/hr IV Q24H [facility] Last Infusion: 03/31/22 10:47 Dose: 0 mls/hr Documented By: JESUS Metronidazole (Flagyl) 500 mg in 100 mls @ 100 mls/hr IV Q8H [facility] Last Infusion: 03/31/22 10:28 Dose: 0 mls/hr Documented By: JESUS Ondansetron HCl (Ondansetron Hcl 4 Mg/2 Ml Vial) 4 mg IVPUSH Q6H PRN PRN Reason: Nausea and Vomiting Last Admin: 03/31/22 05:31 Dose: 4 mg Documented By: DUGLAS Sodium Chloride (0.9 % Sodium Chloride Flush 3 Ml Syringe) [facility] Last Admin: 03/31/22 08:57 Dose: Not Given Documented By: JESUS Non-Admin Reason: IV Running Sodium Chloride (0.9 % Sodium Chloride Flush 3 Ml Syringe) 3 ml IVFLUSH [facility] Last Admin: 03/31/22 08:57 Dose: Not Given Documented By: JESUS Non-Admin Reason: IV Running Labs CBC & Chem 7: 03/31/22 05:24 03/30/22 05:42 Labs: Laboratory Results - last 24 hr 03/30/22 03/31/22 05:42 05:24 MCV 88.2 MCH 29.6 MCHC 33.5 RDW 12.8 Plt Count 369 MPV 9.4 Immature Gran % (Auto) Cancelled Neut % (Auto) Cancelled Lymph % (Auto) Cancelled [place] % (Auto) Cancelled Eos % (Auto) Cancelled Baso % (Auto) Cancelled Lymph # (Auto) Cancelled [place] # (Auto) Cancelled Eos # (Auto) Cancelled Baso # (Auto) Cancelled Abs Immat Gran (auto) Cancelled Absolute Neuts (auto) Cancelled Absolute Nucleated RBC 0.000 Nucleated RBC % (auto) 0.0 Neutrophils % (Manual) 82 H Band Neutrophils % 7 H Lymphocytes % (Manual) 3 L Monocytes % (Manual) 4 Metamyelocytes % 4 Abs Neuts (Manual) 16.3 H Lymphocytes # (Manual) 0.5 L Monocytes # (Manual) 0.7 Metamyelocytes # 0.7 Platelet Estimate NORMAL Plt Morphology Comment NORMAL RBC Morphology NORMAL Hep Bs Antigen Negative Hep Bs Antibody NONREACTIVE Hep B Core Total Ab Nonreactive Hepatitis C Ab (EIA) Nonreactive Microbiology Microbiology Results: Microbiology 03/28/22 16:30 Gram Stain - Final Abdominal Fluid Anaerobic Culture - Preliminary Culture in progress. Body Fluid Culture - Preliminary Culture in progress. Assessment and Plan (1) Ruptured appendix: Status: Acute (2) E. coli sepsis: Status: Acute Plan 56 year old female with history of fibromyalgia, anxiety, alcohol abuse, and former smoker with 15 pack year history quit 30 years ago admitted to general surgery for appendicitis with rupture with medical consult placed for management of possible wtihdrawal. # Sepsis d/t Ruptured appendix/petionitis s/p d successful percutaneous drainage, Initially was on Broad spec Abx (Zosyn), Culture showed E. coli that is sensitive so was changed to Ceftriaoxone 2 grams daily, additionally culture now showing B. frlag and added Flagyl 03/29 with good effect, WBC trending down further intervention per surgery, ID following. Repeat CT of 03/28: finding noted #? IBD-- see by GI with following remarks - Hep serologies, TSPOT and TPMT ordered - Outpatient follow up will be set up for ? Crohns. Please call back for any questions or concerns.--Dr Grajeda #Tachycardia--related to above and is resolved #Alcohol abuse -Consumes 2-3 hard alcohol beverages daily, last drink per patient 5 prior to admission. Has shown no s/x of withdrawal and unlikely to withdraw at this time. No need to check CIWA #Benzo use -no benzos in 10 months (prescribed short-term Valium for pain) #Elevated BP--presently normal will follow Need for hospitalization: defer to surgery Quality Stroke Does the patient have a stroke diagnosis?: No VTE Prior VTE?: No VTE Risk Level:: Surgical - moderate VTE Device Contraindication: N/A - Device Ordered VTE Drug Contraindication: N/A - Med Ordered
--- NOTE | 2022-03-31 11:37 | PM.DS ---
DS: Providers Provider Date of admission: 03/25/22 12:57 Primary care physician: Pipo Tejeda MD Consults: 03/25/22 12:16 Consult to Gastroenterology Stat Consulting Provider: Nicci Sheldon Reason for consultation: Evaluate for possible Crohn's disease Has provider been notified: Yes 03/25/22 12:54 Consult to Hospitalist Routine Consulting Provider: Hospitalist Reason For Exam: ETOH & benzo use; medical help 03/26/22 07:56 Consult to Infectious Diseases Routine Consulting Provider: China Timmons Reason for consultation: intraabdominal sepsis, s/p IR. Cultures/sensitivities pending DS: Diagnosis Discharge Diagnosis (1) Ruptured appendix: Status: Acute (2) E. coli sepsis: Status: Acute DS: Summary Time Spent with Patient Time attestation: Total time spent providing and/or coordinating discharge services: Physical Exam Vital Signs: Vital Signs: Last Vital Signs Temp 98.1 F 03/31/22 08:00 Pulse 78 03/31/22 08:00 Resp 20 03/31/22 08:00 BP 133/73 03/31/22 08:00 Pulse Ox 94 03/31/22 08:00 O2 Del Method 03/31/22 08:00 BMI result Body Mass Index 29.2 DS: Data Data Completed and Pending Labs on day of discharge: Laboratory Results - last 24 hr 03/30/22 03/31/22 05:42 05:24 WBC 18.3 H RBC 3.82 L Hgb 11.3 L Hct 33.7 L MCV 88.2 MCH 29.6 MCHC 33.5 RDW 12.8 Plt Count 369 MPV 9.4 Immature Gran % (Auto) Cancelled Neut % (Auto) Cancelled Lymph % (Auto) Cancelled [place] % (Auto) Cancelled Eos % (Auto) Cancelled Baso % (Auto) Cancelled Lymph # (Auto) Cancelled [place] # (Auto) Cancelled Eos # (Auto) Cancelled Baso # (Auto) Cancelled Abs Immat Gran (auto) Cancelled Absolute Neuts (auto) Cancelled Absolute Nucleated RBC 0.000 Nucleated RBC % (auto) 0.0 Neutrophils % (Manual) 82 H Band Neutrophils % 7 H Lymphocytes % (Manual) 3 L Monocytes % (Manual) 4 Metamyelocytes % 4 Abs Neuts (Manual) 16.3 H Lymphocytes # (Manual) 0.5 L Monocytes # (Manual) 0.7 Metamyelocytes # 0.7 Platelet Estimate NORMAL Plt Morphology Comment NORMAL RBC Morphology NORMAL Hep Bs Antigen Negative Hep Bs Antibody NONREACTIVE Hep B Core Total Ab Nonreactive Hepatitis C Ab (EIA) Nonreactive Preliminary micro results at discharge 03/28/22 16:30 Anaerobic Culture - Preliminary Abdominal Fluid Culture in progress. Body Fluid Culture - Preliminary Culture in progress. Discharge Plan Discharge Referrals: Pipo Tejeda MD [Primary Care Provider] - 1 Week Discharge Medications: No Action duloxetine 60 mg capsule,delayed release(DR/EC) 1 cap PO DAILY
[2022-03-31 11:38] VITALS: BP 164/83; PULSE 78; RESP 19; TEMP 36.6; O2SAT 97
[2022-03-31 15:56] VITALS: BP 160/83; PULSE 99; RESP 18; TEMP 36.1; O2SAT 98
[2022-03-31] MEDS: 0.9 % Sodium Chloride Flush 3 ML SYRINGE IVFLUSH ×2 (17:15→20:08)
[2022-03-31 19:38] VITALS: BP 130/75; PULSE 102; RESP 17; TEMP 36.3; O2SAT 99
[2022-03-31] MEDS: DULoxetine HCl 60 MG CAPSULE.DR PO (20:08)
[2022-03-31 23:54] VITALS: BP 121/60; PULSE 86; RESP 14; TEMP 36; O2SAT 93
[2022-04-01] VITALS (9 sets, daily range): BP systolic 119–142; BP diastolic 64–77; PULSE 79–89; RESP 14–20; TEMP 36–37.1; O2SAT 92–97
[2022-04-01] MEDS: KCl 20 mEq in 0.45% Sod 20 MEQ/1,000 ML IV.SOLN 80 MEQ IVCONT (03:54)
[2022-04-01] MEDS: HYDROmorphone HCl 0.5 MG/0.5 ML SYRINGE IVPUSH ×5 (04:03→22:59)
[2022-04-01 06:02] LABS: Hematocrit 32.1 % (37.0-47.0); Hemoglobin 10.7 g/dl (12.0-16.0); Mean Corpuscular HGB Conc 33.3 g/dl (31.0-35.0); Mean Corpuscular Hemoglobin 29.6 pg (27.0-33.0); Mean Corpuscular Volume 88.9 fL (80.0-98.0); Mean Platelet Volume 9.2 fL (9.4-12.3); Platelet Count 371 X10*3/uL (160-400); Red Blood Count 3.61 X10*6/uL (4.20-5.50); Red Cell Distribution Width 12.6 % (11.0-16.0); White Blood Count 15.3 X10*3/uL (4.8-10.8)
[2022-04-01 06:29] LABS: Anion Gap 12 (12-20); Blood Urea Nitrogen 3 mg/dL (9-16); Calcium 7.7 mg/dL (8.4-10.2); Carbon Dioxide 30 mmol/L (22-29); Chloride 99 mmol/L (96-108); Creatinine Clr Calc Pharmacy 119.3; Estimated Glomerular Filt Rate > 60; Glucose Random 102 mg/dL (60-115); Potassium 3.3 mmol/L (3.3-5.1); Sodium 138 mmol/L (135-145)
[2022-04-01] MEDS: Heparin Sodium,Porcine 5,000 UNIT/ML VIAL 5000 UNIT SUBCUT ×2 (06:39→17:43)
[2022-04-01 06:49] LABS: Band Neutrophils Percent 3 % (3-5); Eosinophils Absolute Manual 0.2 X10*3/uL (0.0-0.4); Eosinophils Percent Manual 1 % (0-4); Lymphocytes Absolute Manual 1.2 X10*3/uL (1.2-4.9); Lymphocytes Percent Manual 8 % (20-40); Metamyelocytes Absolute 0.5 X10*3/uL; Metamyelocytes Percent 3 %; Monocytes Absolute Manual 0.3 X10*3/uL (0.1-1.2); Monocytes Percent Manual 2 % (2-11); Myelocytes Absolute 0.3 X10*/uL; Myelocytes Percent 2 %; Neutrophils Absolute Manual 12.9 X10*3/uL (2.0-8.3); Neutrophils Percent Manual 81 % (45-73)
[2022-04-01 06:51] LABS: Polychromasia 1+ (0-2) /OIF
[2022-04-01 06:52] LABS: Platelet Estimate NORMAL (NORMAL); Platelet Morphology Comment NORMAL; RBC Morphology NOTED
--- NOTE | 2022-04-01 08:22 | PM.PNGS ---
Subjective Subjective Date of Service: 04/01/22 Patient reports: feels better Interval history: The patient is seen approximately 07:30. She requested a conference call with her , Al, who was available. Patient continues to report that she is feeling better, she has tolerated the liquids without any nausea or vomiting, is passing gas and had another incontinent loose bowel movement. She otherwise was denies lower extremity pain or swelling, chest pain, difficulty breathing or shortness of breath. No nausea or vomiting. Physical Exam Vital Signs: Vital Signs: Last Vital Signs Temp 96.9 F 04/01/22 07:54 Pulse 79 04/01/22 07:54 Resp 18 04/01/22 07:54 BP 142/76 H 04/01/22 07:54 Pulse Ox 94 04/01/22 07:54 O2 Del Method 04/01/22 07:54 BMI result Body Mass Index 29.2 She is in good spirits and nontoxic Her abdomen is improved with much less tenderness and no peritoneal sign to percussion. Her tympany has resolved. Drains continue to put out a mix of somewhat purulence and some serous material. Objective Data Active Medications Duloxetine HCl (Duloxetine Hcl 60 Mg Capsule.Dr) 60 mg PO BEDTIME [facility] Last Admin: 03/31/22 20:08 Dose: 60 mg Documented By: KIP Heparin Sodium (Porcine) (Heparin Sodium,Porcine 5,000 Unit/Ml Vial) 5,000 unit SUBCUT Q12H [facility] Last Admin: 04/01/22 06:39 Dose: 5,000 unit Documented By: KIP Hydromorphone HCl (Hydromorphone Hcl 0.5 Mg/0.5 Ml Syringe) 0.5 mg IVPUSH Q2H PRN; Protocol PRN Reason: Pain, Severe (Pain Scale 7-10) Last Admin: 04/01/22 04:03 Dose: 0.5 mg Documented By: KIP Potassium Chloride/Sodium Chloride (Kcl 20 Meq In 0.45% Sod) 20 meq in 1,000 mls @ 80 mls/hr IVCONT .[id number] [facility] Last Admin: 04/01/22 03:54 Dose: 80 mls/hr Documented By: KIP Promethazine HCl 12.5 mg/ (Sodium Chloride) 50.5 mls @ 202 mls/hr IV Q6H PRN PRN Reason: Vomiting Last Infusion: 03/31/22 00:14 Dose: 0 mls/hr Documented By: DUGLAS Ceftriaxone Sodium 2 gm/ (Sodium Chloride) 50 mls @ 100 mls/hr IV Q24H [facility] Last Infusion: 03/31/22 10:47 Dose: 0 mls/hr Documented By: JESUS Metronidazole (Flagyl) 500 mg in 100 mls @ 100 mls/hr IV Q8H [facility] Last Infusion: 04/01/22 00:08 Dose: 0 mls/hr Documented By: KIP Ondansetron HCl (Ondansetron Hcl 4 Mg/2 Ml Vial) 4 mg IVPUSH Q6H PRN PRN Reason: Nausea and Vomiting Last Admin: 03/31/22 20:07 Dose: 4 mg Documented By: KIP Sodium Chloride (0.9 % Sodium Chloride Flush 3 Ml Syringe) [facility] Last Admin: 04/01/22 07:19 Dose: Not Given Documented By: CHRIS Non-Admin Reason: IV Running Sodium Chloride (0.9 % Sodium Chloride Flush 3 Ml Syringe) 3 ml IVFLUSH QSMIFT [facility] Last Admin: 04/01/22 07:19 Dose: Not Given Documented By: CHRIS Non-Admin Reason: IV Running Labs CBC & Chem 7: 04/01/22 05:06 04/01/22 05:06 Labs: Laboratory Results - last 24 hr 03/30/22 04/01/22 04/01/22 05:42 05:06 05:06 MCV 88.9 MCH 29.6 MCHC 33.3 RDW 12.6 Plt Count 371 MPV 9.2 L Immature Gran % (Auto) Cancelled Neut % (Auto) Cancelled Lymph % (Auto) Cancelled [place] % (Auto) Cancelled Eos % (Auto) Cancelled Baso % (Auto) Cancelled Lymph # (Auto) Cancelled [place] # (Auto) Cancelled Eos # (Auto) Cancelled Baso # (Auto) Cancelled Abs Immat Gran (auto) Cancelled Absolute Neuts (auto) Cancelled Absolute Nucleated RBC 0.000 Nucleated RBC % (auto) 0.0 Neutrophils % (Manual) 81 H Band Neutrophils % 3 Lymphocytes % (Manual) 8 L Monocytes % (Manual) 2 Eosinophils % (Manual) 1 Metamyelocytes % 3 Myelocytes % 2 Abs Neuts (Manual) 12.9 H Lymphocytes # (Manual) 1.2 Monocytes # (Manual) 0.3 Eosinophils # (Manual) 0.2 Metamyelocytes # 0.5 Myelocytes # 0.3 Platelet Estimate NORMAL Plt Morphology Comment NORMAL RBC Morphology NOTED Polychromasia 1+ (0-2) Anion Gap 12 Estim Creat Clear Calc 119.3 Estimated GFR > 60 Random Glucose 102 Calcium 7.7 L Hep Bs Antigen Negative Hep Bs Antibody NONREACTIVE Hep B Core Total Ab Nonreactive Hepatitis C Ab (EIA) Nonreactive Microbiology Microbiology Results: Microbiology 03/28/22 16:30 Gram Stain - Final Abdominal Fluid Anaerobic Culture - Preliminary Culture in progress. Body Fluid Culture - Final Group F Streptococcus Procedures Date of Service Date of Service: 04/01/22 Progress Note: A&P Assessment and plan (1) Ruptured appendix: Status: Acute (2) Abnormal CT of the abdomen: Status: Acute (3) Ileitis, regional: Status: Acute (4) E. coli sepsis: Status: Acute Plan The patient seems to be making clinical progress. I will change IV fluids given her BUN and hopefully over the next air to weekend when them off completely. Advanced diet to regular. I have ordered a dietitian consultation and explained about the importance of a high-protein diet. Continue to trend labs and continue drainage. I reminded both the patient and her that if this plan fails, a repeat CT to assess for undrained collections will be in order and possible operative/laparoscopic intervention may follow. But based on today's progress, I believe this less likely. Time Spent With Patient Time: Total time spent is greater than 50% in coordination of care (as documented) at patient's floor/unit and/or counseling patient: Quality Stroke Does the patient have a stroke diagnosis?: No VTE Prior VTE?: No VTE Risk Level:: Surgical - moderate VTE Device Contraindication: N/A - Device Ordered VTE Drug Contraindication: N/A - Med Ordered
[2022-04-01] MEDS: ondansetron HCL 4 MG/2 ML VIAL IVPUSH ×3 (08:38→23:00)
[2022-04-01] MEDS: metroNIDAZOLE/NS 500 MG/100 ML PIGGYBACK 100 MG IV ×3 (08:38→22:59)
[2022-04-01] MEDS: KCl 20 mEq in 0.9 % Sodium ChL 20 MEQ/1,000 ML IV.SOLN 42 MEQ IVCONT (08:39)
[2022-04-01] MEDS: cefTRIAXone sodium 2 GM in 0.9 % Sodium Chloride 50 ML IV (10:03)
--- NOTE | 2022-04-01 11:59 | MHC.CLN ---
RE: CONSULT REVIEWED FOODS HIGH IN PROTEIN AND FIBER. PT REQUESTING FACILITY'S PAPER MENU FOR ORDERING FUTURE MEALS. PT REPORTED SHE ORDERED SCRAMBLED EGGS AND TOAST FOR BREAKFAST. LIKES ENSURE CLEAR SUPPLEMENT SEE ALSO TEACHING RECORD
--- NOTE | 2022-04-01 16:11 | HO.PM.IMPN ---
Subjective Subjective Date of Service: 04/01/22 Interval History: appendicitis with rupture Physical Exam Vital Signs: Vital Signs: Last Vital Signs Temp 97.5 F 04/01/22 15:32 Pulse 81 04/01/22 15:32 Resp 20 04/01/22 15:32 BP 129/64 04/01/22 15:32 Pulse Ox 97 04/01/22 15:32 O2 Del Method 04/01/22 15:32 BMI result Body Mass Index 29.2 Appearance: Alert.? Oriented X3.? not in distress.? cvs: [id number], [id number]. res: clear to auscultation ,no rhonchii or wheezing ext pulses present , no cyanosis ,Gait well balanced well coordinated. abd :with much less tenderness and no peritoneal sign to percussion.? Her tympany has resolved. Drains continue to put out a mix of somewhat purulence and some serous material. neuro: axo3 , nonfocal. Objective Data Active Medications Duloxetine HCl (Duloxetine Hcl 60 Mg Capsule.) 60 mg PO BEDTIME [facility] Last Admin: 03/31/22 20:08 Dose: 60 mg Documented By: KIP Heparin Sodium (Porcine) (Heparin Sodium,Porcine 5,000 Unit/Ml Vial) 5,000 unit SUBCUT Q12H [facility] Last Admin: 04/01/22 06:39 Dose: 5,000 unit Documented By: KIP Hydromorphone HCl (Hydromorphone Hcl 0.5 Mg/0.5 Ml Syringe) 0.5 mg IVPUSH Q2H PRN; Protocol PRN Reason: Pain, Severe (Pain Scale 7-10) Last Admin: 04/01/22 12:10 Dose: 0.5 mg Documented By: COTEMA Promethazine HCl 12.5 mg/ (Sodium Chloride) 50.5 mls @ 202 mls/hr IV Q6H PRN PRN Reason: Vomiting Last Infusion: 04/01/22 12:26 Dose: 0 mls/hr Documented By: COTEMA Ceftriaxone Sodium 2 gm/ (Sodium Chloride) 50 mls @ 100 mls/hr IV Q24H [facility] Last Infusion: 04/01/22 10:34 Dose: 0 mls/hr Documented By: COTEMA Metronidazole (Flagyl) 500 mg in 100 mls @ 100 mls/hr IV Q8H [facility] Last Infusion: 04/01/22 10:03 Dose: 0 mls/hr Documented By: COTEMA Potassium Chloride/Sodium Chloride (Kcl 20 Meq In 0.9 % Sodium Chl) 20 meq in 1,000 mls @ 42 mls/hr IVCONT .[id number] [facility] Last Admin: 04/01/22 08:39 Dose: 42 mls/hr Documented By: ROMIEEMA Ondansetron HCl (Ondansetron Hcl 4 Mg/2 Ml Vial) 4 mg IVPUSH Q6H PRN PRN Reason: Nausea and Vomiting Last Admin: 04/01/22 08:38 Dose: 4 mg Documented By: COTEMA Sodium Chloride (0.9 % Sodium Chloride Flush 3 Ml Syringe) 3 ml IVFLUSH [facility] Last Admin: 04/01/22 15:43 Dose: Not Given Documented By: COTEMA Non-Admin Reason: IV Running Sodium Chloride (0.9 % Sodium Chloride Flush 3 Ml Syringe) 3 ml IVFLUSH [facility] Last Admin: 04/01/22 15:43 Dose: Not Given Documented By: COTTOMÁS Non-Admin Reason: IV Running Labs CBC & Chem 7: 04/01/22 05:06 04/01/22 05:06 Labs: Laboratory Results - last 24 hr 04/01/22 04/01/22 05:06 05:06 MCV 88.9 MCH 29.6 MCHC 33.3 RDW 12.6 Plt Count 371 MPV 9.2 L Immature Gran % (Auto) Cancelled Neut % (Auto) Cancelled Lymph % (Auto) Cancelled [place] % (Auto) Cancelled Eos % (Auto) Cancelled Baso % (Auto) Cancelled Lymph # (Auto) Cancelled [place] # (Auto) Cancelled Eos # (Auto) Cancelled Baso # (Auto) Cancelled Abs Immat Gran (auto) Cancelled Absolute Neuts (auto) Cancelled Absolute Nucleated RBC 0.000 Nucleated RBC % (auto) 0.0 Neutrophils % (Manual) 81 H Band Neutrophils % 3 Lymphocytes % (Manual) 8 L Monocytes % (Manual) 2 Eosinophils % (Manual) 1 Metamyelocytes % 3 Myelocytes % 2 Abs Neuts (Manual) 12.9 H Lymphocytes # (Manual) 1.2 Monocytes # (Manual) 0.3 Eosinophils # (Manual) 0.2 Metamyelocytes # 0.5 Myelocytes # 0.3 Platelet Estimate NORMAL Plt Morphology Comment NORMAL RBC Morphology NOTED Polychromasia 1+ (0-2) Anion Gap 12 Estim Creat Clear Calc 119.3 Estimated GFR > 60 Random Glucose 102 Calcium 7.7 L Microbiology Microbiology Results: Microbiology 03/28/22 16:30 Gram Stain - Final Abdominal Fluid Anaerobic Culture - Final Bacteroides fragilis Body Fluid Culture - Final Group F Streptococcus Assessment and Plan (1) E. coli sepsis: Status: Acute (2) Ileitis, regional: Status: Acute (3) Ruptured appendix: Status: Acute Plan 56 year old female with history of fibromyalgia, anxiety, alcohol abuse, and former smoker with 15 pack year history quit 30 years ago admitted to general surgery for appendicitis with rupture with medical consult placed for management of possible wtihdrawal. # Sepsis d/t Ruptured appendix/petionitis s/p d successful percutaneous drainage, Initially was on Broad spec Abx (Zosyn),? Culture showed E. coli that is sensitive so was changed to Ceftriaoxone 2 grams daily, additionally culture now showing B. frlag and added? Flagyl 03/29 with good effect, WBC trending down ?further intervention per surgery, ID following. Repeat CT of 03/28: finding noted #? IBD-- see by GI with following remarks - Hep serologies, TSPOT and TPMT ordered - Outpatient follow up will be set up for ? Crohns. Please call back for any questions or concerns.--Dr Grajeda #Tachycardia--related to above and is resolved #Alcohol abuse -Consumes 2-3 hard alcohol beverages daily, last drink per patient 5 prior to admission. Has shown no s/x of withdrawal and unlikely to withdraw at this time. No need to check CIWA #Benzo use -no benzos in 10 months (prescribed short-term Valium for pain) #Elevated BP--presently normal will follow Need for hospitalization: defer to surgery Quality Stroke Does the patient have a stroke diagnosis?: No VTE Prior VTE?: No VTE Risk Level:: Surgical - moderate VTE Device Contraindication: N/A - Device Ordered VTE Drug Contraindication: N/A - Med Ordered
[2022-04-01] MEDS: DULoxetine HCl 60 MG CAPSULE.DR PO (20:58)
[2022-04-02 03:55] VITALS: BP 136/72; PULSE 83; RESP 14; TEMP 36.2; O2SAT 95
[2022-04-02] MEDS: HYDROmorphone HCl 0.5 MG/0.5 ML SYRINGE IVPUSH ×5 (03:57→23:37)
[2022-04-02 06:43] LABS: Hematocrit 32.4 % (37.0-47.0); Hemoglobin 10.6 g/dl (12.0-16.0); Mean Corpuscular HGB Conc 32.7 g/dl (31.0-35.0); Mean Corpuscular Hemoglobin 29.1 pg (27.0-33.0); Platelet Count 398 X10*3/uL (160-400); Red Blood Count 3.64 X10*6/uL (4.20-5.50); Red Cell Distribution Width 12.8 % (11.0-16.0); White Blood Count 14.6 X10*3/uL (4.8-10.8)
[2022-04-02 06:57] LABS: Anion Gap 16 (12-20); Blood Urea Nitrogen 2 mg/dL (9-16); Calcium 7.9 mg/dL (8.4-10.2); Carbon Dioxide 29 mmol/L (22-29); Chloride 99 mmol/L (96-108); Creatinine Clr Calc Pharmacy 110.6; Estimated Glomerular Filt Rate > 60; Glucose Random 105 mg/dL (60-115); Potassium 3.6 mmol/L (3.3-5.1); Sodium 140 mmol/L (135-145)
--- NOTE | 2022-04-02 07:06 | PM.PNGS ---
Subjective Subjective Date of Service: 04/02/22 Patient reports: feels better, tolerating liquids well, tolerating a regular diet, flatus and no bowel movement Interval history: Patient had a restful night sleeping reports she is feeling better. She does however note that there is pain when her 1 drain is flushed on the right side of her abdomen. I will write orders to DC this. She otherwise denies chest pain, difficulty breathing or shortness of breath. She does have a little bit of bloating but is passing gas and has not had a bowel movement yet since transitioning to regular diet. Patient tried to contact her for a conference call but there was no answer. Physical Exam Vital Signs: Vital Signs: Last Vital Signs Temp 97.2 F 04/02/22 03:55 Pulse 83 04/02/22 03:55 Resp 14 04/02/22 03:55 BP 136/72 04/02/22 03:55 Pulse Ox 95 04/02/22 03:55 O2 Del Method 04/02/22 03:55 BMI result Body Mass Index 29.2 On exam, she is well rested She is in good spirits NC/AT, PERRLA, EOMI Abdomen is less bloated than last night there is minimal tympany in certainly no peritoneal sign or tenderness. Drains continue to put out some junky purulence/serous material Objective Data Active Medications Duloxetine HCl (Duloxetine Hcl 60 Mg [place].) 60 mg PO BEDTIME ON [facility] OF [facility] Last Admin: 04/01/22 20:58 Dose: 60 mg Documented By: KIP Heparin Sodium (Porcine) (Heparin Sodium,Porcine 5,000 Unit/Ml Vial) 5,000 unit SUBCUT Q12H [facility] Last Admin: 04/02/22 04:01 Dose: Not Given Documented By: KIP Non-Admin Reason: Patient Refused Hydromorphone HCl (Hydromorphone Hcl 0.5 Mg/0.5 Ml Syringe) 0.5 mg IVPUSH Q2H PRN; Protocol PRN Reason: Pain, Severe (Pain Scale 7-10) Last Admin: 04/02/22 03:57 Dose: 0.5 mg Documented By: KIP Promethazine HCl 12.5 mg/ (Sodium Chloride) 50.5 mls @ 202 mls/hr IV Q6H PRN PRN Reason: Vomiting Last Infusion: 04/01/22 12:26 Dose: 0 mls/hr Documented By: COTEMA Ceftriaxone Sodium 2 gm/ (Sodium Chloride) 50 mls @ 100 mls/hr IV Q24H [facility] Last Infusion: 04/01/22 10:34 Dose: 0 mls/hr Documented By: COTEMA Metronidazole (Flagyl) 500 mg in 100 mls @ 100 mls/hr IV Q8H [facility] Last Infusion: 04/02/22 00:23 Dose: 0 mls/hr Documented By: KIP Potassium Chloride/Sodium Chloride (Kcl 20 Meq In 0.9 % Sodium Chl) 20 meq in 1,000 mls @ 42 mls/hr IVCONT .[id number] [facility] OF [facility] Last Infusion: 04/02/22 00:00 Dose: 42 mls/hr Documented By: KIP Ondansetron HCl (Ondansetron Hcl 4 Mg/2 Ml Vial) 4 mg IVPUSH Q6H PRN PRN Reason: Nausea and Vomiting Last Admin: 04/01/22 23:00 Dose: 4 mg Documented By: KIP Sodium Chloride (0.9 % Sodium Chloride Flush 3 Ml Syringe) 3 ml IVFLUSH QSARFT ON [facility] OF [facility] Last Admin: 04/01/22 20:58 Dose: Not Given Documented By: KIP Non-Admin Reason: IV Running Sodium Chloride (0.9 % Sodium Chloride Flush 3 Ml Syringe) 3 ml IVFLUSH QSARFT [facility] Last Admin: 04/01/22 21:02 Dose: Not Given Documented By: KIP Non-Admin Reason: IV Running Labs CBC & Chem 7: 04/02/22 05:56 04/02/22 05:56 Labs: Laboratory Results - last 24 hr 04/02/22 04/02/22 05:56 05:56 MCV 89.0 MCH 29.1 MCHC 32.7 RDW 12.8 Plt Count 398 MPV 9.0 L Immature Gran % (Auto) Cancelled Neut % (Auto) Cancelled Lymph % (Auto) Cancelled [place] % (Auto) Cancelled Eos % (Auto) Cancelled Baso % (Auto) Cancelled Lymph # (Auto) Cancelled [place] # (Auto) Cancelled Eos # (Auto) Cancelled Baso # (Auto) Cancelled Abs Immat Gran (auto) Cancelled Absolute Neuts (auto) Cancelled Absolute Nucleated RBC 0.000 Nucleated RBC % (auto) 0.0 Anion Gap 16 Estim Creat Clear Calc 110.6 Estimated GFR > 60 Random Glucose 105 Calcium 7.9 L Microbiology Microbiology Results: Microbiology 03/28/22 16:30 Gram Stain - Final Abdominal Fluid Anaerobic Culture - Final Bacteroides fragilis Body Fluid Culture - Final Group F Streptococcus Procedures Date of Service Date of Service: 04/02/22 Progress Note: A&P Assessment and plan (1) Ruptured appendix: Status: Acute (2) Abnormal CT of the abdomen: Status: Acute (3) Ileitis, regional: Status: Acute (4) E. coli sepsis: Status: Acute Plan DC drain flushes KVO IVF Trend labs; encourage out of bed and incentive spirometry If the patient continues with the clinical improvement and normalizing white blood cell count, she may be ready for discharge home by the end of the week. Alternately, if her white blood cell count goes up, or there is a clinical change, a repeat CT and possible OR/laparoscopy will be in order. Continue present management Time Spent With Patient Time: Total time spent is greater than 50% in coordination of care (as documented) at patient's floor/unit and/or counseling patient: Quality Stroke Does the patient have a stroke diagnosis?: No VTE Prior VTE?: No VTE Risk Level:: Surgical - moderate VTE Device Contraindication: N/A - Device Ordered VTE Drug Contraindication: N/A - Med Ordered
[2022-04-02 07:42] VITALS: BP 141/76; PULSE 82; RESP 18; TEMP 36.7; O2SAT 93
[2022-04-02 07:42] LABS: Band Neutrophils Percent 5 % (3-5); Eosinophils Absolute Manual 0.1 X10*3/uL (0.0-0.4); Eosinophils Percent Manual 1 % (0-4); Lymphocytes Absolute Manual 0.6 X10*3/uL (1.2-4.9); Lymphocytes Percent Manual 4 % (20-40); Metamyelocytes Absolute 0.1 X10*3/uL; Metamyelocytes Percent 1 %; Monocytes Absolute Manual 0.6 X10*3/uL (0.1-1.2); Monocytes Percent Manual 4 % (2-11); Neutrophils Absolute Manual 13.1 X10*3/uL (2.0-8.3); Neutrophils Percent Manual 85 % (45-73)
[2022-04-02] MEDS: metroNIDAZOLE/NS 500 MG/100 ML PIGGYBACK 100 MG IV ×3 (07:42→23:38)
[2022-04-02 07:43] LABS: Hypochromasia 1+ (5-14) /OIF; Platelet Estimate NORMAL (NORMAL); Platelet Morphology Comment NORMAL; RBC Morphology NOTED
[2022-04-02 08:09] LABS: Hepatitis A Antibody IgG Nonreactive (Nonreactive); ~Hepatitis A Antibody IgG 0.31 S/CO (0.00-0.99)
[2022-04-02] MEDS: cefTRIAXone sodium 2 GM in 0.9 % Sodium Chloride 50 ML IV (10:24)
--- NOTE | 2022-04-02 10:41 | MHC.CLN ---
F/U DIET ADVANCED TO REGULAR ON 04/01. APPEARS TO BE TOLERATING DIET. ENSURE TID PROVIDES ADDITIONAL 720 KCALS, 24 G PROTEIN. SEE NUTRITION CONSULT 04/01. CONTINUE TO FOLLOW FOR INTAKE AND DIET TOLERANCE.
[2022-04-02 11:32] VITALS: BP 140/72; PULSE 84; RESP 18; TEMP 36.4; O2SAT 96
--- NOTE | 2022-04-02 13:56 | P.PNIM_ITS ---
Subjective Subjective Date of Service: 04/02/22 Interval History: appendicitis with rupture Review of Systems less tender , denies any chest pain or shortness of breath or fever chills or cough or phlegm. Physical Exam Vital Signs: Vital Signs: Last Vital Signs Temp 97.6 F 04/02/22 11:32 Pulse 84 04/02/22 11:32 Resp 18 04/02/22 11:32 BP 140/72 H 04/02/22 11:32 Pulse Ox 96 04/02/22 11:32 O2 Del Method 04/02/22 11:32 BMI result Body Mass Index 29.2 Appearance: Alert.? Oriented X3.? not in distress.? cvs: rrr, [id number]. res: clear to auscultation ,no rhonchii or wheezing ext pulses present , no cyanosis ,Gait well balanced well coordinated. abd :with much less tenderness and no peritoneal sign to percussion.? Her tympany has resolved. Drains continue to put out a mix of somewhat purulence and some serous material. neuro: axo3 , nonfocal. Objective Data Active Medications Duloxetine HCl (Duloxetine Hcl 60 Mg Capsule.Dr) 60 mg PO BEDTIME [facility] Last Admin: 04/01/22 20:58 Dose: 60 mg Documented By: KIP Heparin Sodium (Porcine) (Heparin Sodium,Porcine 5,000 Unit/Ml Vial) 5,000 unit SUBCUT Q12H [facility] Last Admin: 04/02/22 04:01 Dose: Not Given Documented By: KIP Non-Admin Reason: Patient Refused Hydromorphone HCl (Hydromorphone Hcl 0.5 Mg/0.5 Ml Syringe) 0.5 mg IVPUSH Q2H PRN; Protocol PRN Reason: Pain, Severe (Pain Scale 7-10) Last Admin: 04/02/22 11:37 Dose: 0.5 mg Documented By: LYSZ Promethazine HCl 12.5 mg/ (Sodium Chloride) 50.5 mls @ 202 mls/hr IV Q6H PRN PRN Reason: Vomiting Last Infusion: 04/01/22 12:26 Dose: 0 mls/hr Documented By: COTEMA Ceftriaxone Sodium 2 gm/ (Sodium Chloride) 50 mls @ 100 mls/hr IV Q24H [facility] Last Infusion: 04/02/22 10:58 Dose: 0 mls/hr Documented By: THO Metronidazole (Flagyl) 500 mg in 100 mls @ 100 mls/hr IV Q8H [facility] Last Infusion: 04/02/22 08:43 Dose: 0 mls/hr Documented By: THO Potassium Chloride/Sodium Chloride (Kcl 20 Meq In 0.9 % Sodium Chl) 20 meq in 1,000 mls @ 30 mls/hr IVCONT .Q24H [facility] Last Infusion: 04/02/22 12:32 Dose: 0 mls/hr Documented By: THO Ondansetron HCl (Ondansetron Hcl 4 Mg/2 Ml Vial) 4 mg IVPUSH Q6H PRN PRN Reason: Nausea and Vomiting Last Admin: 04/01/22 23:00 Dose: 4 mg Documented By: KIP Sodium Chloride (0.9 % Sodium Chloride Flush 3 [facility]) [facility] Admin: 04/02/22 07:42 Dose: Not Given Documented By: THO Non-Admin Reason: IV Running Sodium Chloride (0.9 % Sodium Chloride Flush 3 Ml Syringe) 3 ml IVFLUSH [facility] Last Admin: 04/02/22 07:42 Dose: Not Given Documented By: THO Non-Admin Reason: IV Running Labs CBC & Chem 7: 04/02/22 05:56 04/02/22 05:56 Labs: Laboratory Results - last 24 hr 03/30/22 04/02/22 04/02/22 05:42 05:56 05:56 MCV 89.0 MCH 29.1 MCHC 32.7 RDW 12.8 Plt Count 398 MPV 9.0 L Immature Gran % (Auto) Cancelled Neut % (Auto) Cancelled Lymph % (Auto) Cancelled [place] % (Auto) Cancelled Eos % (Auto) Cancelled Baso % (Auto) Cancelled Lymph # (Auto) Cancelled [place] # (Auto) Cancelled Eos # (Auto) Cancelled Baso # (Auto) Cancelled Abs Immat Gran (auto) Cancelled Absolute Neuts (auto) Cancelled Absolute Nucleated RBC 0.000 Nucleated RBC % (auto) 0.0 Neutrophils % (Manual) 85 H Band Neutrophils % 5 Lymphocytes % (Manual) 4 L Monocytes % (Manual) 4 Eosinophils % (Manual) 1 Metamyelocytes % 1 Abs Neuts (Manual) 13.1 H Lymphocytes # (Manual) 0.6 L Monocytes # (Manual) 0.6 Eosinophils # (Manual) 0.1 Metamyelocytes # 0.1 Platelet Estimate NORMAL Plt Morphology Comment NORMAL RBC Morphology NOTED Hypochromasia 1+ (5-14) Anion Gap 16 Estim Creat Clear Calc 110.6 Estimated GFR > 60 Random Glucose 105 Calcium 7.9 L Hepatitis A IgG Ab Nonreactive Microbiology Microbiology Results: Microbiology 03/28/22 16:30 Gram Stain - Final Abdominal Fluid Anaerobic Culture - Final Bacteroides fragilis Body Fluid Culture - Final Group F Streptococcus Assessment and Plan (1) E. coli sepsis: Status: Acute (2) Ileitis, regional: Status: Acute (3) Ruptured appendix: Status: Acute Plan 56 year old female with history of fibromyalgia, anxiety, alcohol abuse, and former smoker with 15 pack year history quit 30 years ago admitted to general surgery for appendicitis with rupture with medical consult placed for management of possible wtihdrawal. # Sepsis d/t Ruptured appendix/petionitis s/p d successful percutaneous drainage, Initially was on Broad spec Abx (Zosyn),? Culture showed E. coli that is sensitive so was changed to Ceftriaoxone 2 grams daily, additionally culture now showing B. frlag and ? Flagyl 03/29 with good effect, WBC trending down ?further intervention per surgery, ID following. Repeat CT of 03/28: finding noted #? IBD-- see by GI with following remarks - Hep serologies, TSPOT and TPMT ordered - Outpatient follow up will be set up for ? Crohns. Please call back for any questions or concerns.--Dr Grajeda #Tachycardia--related to above and is resolved #Alcohol abuse -Consumes 2-3 hard alcohol beverages daily, last drink per patient 5 prior to admission. Has shown no s/x of withdrawal and unlikely to withdraw at this time. No need to check CIWA #Benzo use -no benzos in 10 months (prescribed short-term Valium for pain) #Elevated BP--presently normal will follow Need for hospitalization: defer to surgery Quality Stroke Does the patient have a stroke diagnosis?: No VTE Prior VTE?: No VTE Risk Level:: Surgical - moderate VTE Device Contraindication: N/A - Device Ordered VTE Drug Contraindication: N/A - Med Ordered
[2022-04-02] MEDS: KCl 20 mEq in 0.9 % Sodium ChL 20 MEQ/1,000 ML IV.SOLN 30 MEQ IVCONT (14:13)
[2022-04-02 15:19] VITALS: BP 116/60; PULSE 85; RESP 18; TEMP 36.1; O2SAT 98
[2022-04-02] MEDS: Heparin Sodium,Porcine 5,000 UNIT/ML VIAL 5000 UNIT SUBCUT (17:34)
[2022-04-02 19:14] VITALS: BP 132/77; PULSE 88; RESP 16; TEMP 36.9; O2SAT 98
[2022-04-02] MEDS: ondansetron HCL 4 MG/2 ML VIAL IVPUSH (19:38)
[2022-04-02] MEDS: DULoxetine HCl 60 MG CAPSULE.DR PO (20:41)
[2022-04-02 22:21] LABS: TS Negative Control Passed; TS Panel A 0; TS Panel B 0; TS Positive Control Passed; TSpotTB Negative (Negative)
[2022-04-02 23:28] VITALS: BP 134/69; PULSE 86; RESP 16; TEMP 36.9; O2SAT 96
[2022-04-03 02:48] VITALS: BP 131/72; PULSE 82; RESP 16; TEMP 37.2; O2SAT 93
[2022-04-03] MEDS: Heparin Sodium,Porcine 5,000 UNIT/ML VIAL 5000 UNIT SUBCUT ×2 (05:23→16:43)
[2022-04-03] MEDS: HYDROmorphone HCl 0.5 MG/0.5 ML SYRINGE IVPUSH ×6 (05:28→23:42)
[2022-04-03 07:05] LABS: Hematocrit 32.4 % (37.0-47.0); Hemoglobin 10.9 g/dl (12.0-16.0); Mean Corpuscular HGB Conc 33.6 g/dl (31.0-35.0); Mean Corpuscular Hemoglobin 29.7 pg (27.0-33.0); Mean Corpuscular Volume 88.3 fL (80.0-98.0); Mean Platelet Volume 9.2 fL (9.4-12.3); Platelet Count 421 X10*3/uL (160-400); Red Blood Count 3.67 X10*6/uL (4.20-5.50); White Blood Count 16.5 X10*3/uL (4.8-10.8)
--- NOTE | 2022-04-03 07:22 | PM.PNGS ---
Subjective Subjective Date of Service: 04/03/22 Patient reports: no new complaints, feels better, tolerating a regular diet, flatus and bowel movement Interval history: When I woke the patient just before 07:00 o'clock, she requested a conference call with her , Douglas. She reports that she is doing better and tolerating her diet but just does not have much of an appetite. She otherwise denies chest pain, difficulty breathing or shortness of breath Physical Exam Vital Signs: Vital Signs: Last Vital Signs Temp 99 F 04/03/22 02:48 Pulse 82 04/03/22 02:48 Resp 16 04/03/22 02:48 BP 131/72 04/03/22 02:48 Pulse Ox 93 04/03/22 02:48 O2 Del Method 04/03/22 02:48 BMI result Body Mass Index 29.2 Abdominal exam is unchanged, she is soft with no peritoneal sign the vague discomfort seems to be resolving Objective Data Active Medications Duloxetine HCl (Duloxetine Hcl 60 Mg Capsule.Dr) 60 mg PO BEDTIME [facility] Last Admin: 04/02/22 20:41 Dose: 60 mg Documented By: MALLIKA Heparin Sodium (Porcine) (Heparin Sodium,Porcine 5,000 Unit/Ml Vial) 5,000 unit SUBCUT Q12H [facility] Last Admin: 04/03/22 05:23 Dose: 5,000 unit Documented By: MALLIKA Hydromorphone HCl (Hydromorphone Hcl 0.5 Mg/0.5 Ml Syringe) 0.5 mg IVPUSH Q2H PRN; Protocol PRN Reason: Pain, Severe (Pain Scale 7-10) Last Admin: 04/03/22 05:28 Dose: 0.5 mg Documented By: MALLIKA Promethazine HCl 12.5 mg/ (Sodium Chloride) 50.5 mls @ 202 mls/hr IV Q6H PRN PRN Reason: Vomiting Last Infusion: 04/01/22 12:26 Dose: 0 mls/hr Documented By: COTEMA Ceftriaxone Sodium 2 gm/ (Sodium Chloride) 50 mls @ 100 mls/hr IV Q24H [facility] Last Infusion: 04/02/22 10:58 Dose: 0 mls/hr Documented By: LYSZ Metronidazole (Flagyl) 500 mg in 100 mls @ 100 mls/hr IV Q8H [facility] Last Infusion: 04/03/22 00:41 Dose: 0 mls/hr Documented By: MALLIKA Potassium Chloride/Sodium Chloride (Kcl 20 Meq In 0.9 % Sodium Chl) 20 meq in 1,000 mls @ 30 mls/hr IVCONT .Q24H [facility] Last Admin: 04/02/22 14:13 Dose: 30 mls/hr Documented By: THO Ondansetron HCl (Ondansetron Hcl 4 Mg/2 Ml Vial) 4 mg IVPUSH Q6H PRN PRN Reason: Nausea and Vomiting Last Admin: 04/02/22 19:38 Dose: 4 mg Documented By: MALLIKA Sodium Chloride (0.9 % Sodium Chloride Flush 3 Ml Syringe) 3 ml IVFLUSH QSHIFT [facility] Last Admin: 04/02/22 22:20 Dose: Not Given Documented By: MALLIKA Non-Admin Reason: IV Running Sodium Chloride (0.9 % Sodium Chloride Flush 3 Ml Syringe) 3 ml IVFLUSH QSHIFT [facility] Last Admin: 04/02/22 22:20 Dose: Not Given Documented By: MALLIKA Non-Admin Reason: IV Running Labs CBC & Chem 7: 04/03/22 05:57 04/02/22 05:56 Labs: Laboratory Results - last 24 hr 03/30/22 03/31/22 04/02/22 05:42 05:24 05:56 MCV MCH MCHC RDW Plt Count MPV Immature Gran % (Auto) Neut % (Auto) Lymph % (Auto) [place] % (Auto) Eos % (Auto) Baso % (Auto) Lymph # (Auto) [place] # (Auto) Eos # (Auto) Baso # (Auto) Abs Immat Gran (auto) Absolute Neuts (auto) Absolute Nucleated RBC Nucleated RBC % (auto) Neutrophils % (Manual) 85 H Band Neutrophils % 5 Lymphocytes % (Manual) 4 L Monocytes % (Manual) 4 Eosinophils % (Manual) 1 Metamyelocytes % 1 Abs Neuts (Manual) 13.1 H Lymphocytes # (Manual) 0.6 L Monocytes # (Manual) 0.6 Eosinophils # (Manual) 0.1 Metamyelocytes # 0.1 Platelet Estimate NORMAL Plt Morphology Comment NORMAL RBC Morphology NOTED Hypochromasia 1+ (5-14) Hepatitis A IgG Ab Nonreactive TB Test (T-Spot) Com Negative TB Test Nil Control Passed TB Test Panel A 0 TB Test Panel B 0 TB Test Positive Cntrl Passed 04/03/22 05:57 MCV 88.3 MCH 29.7 MCHC 33.6 RDW 13.0 Plt Count 421 H MPV 9.2 L Immature Gran % (Auto) Cancelled Neut % (Auto) Cancelled Lymph % (Auto) Cancelled [place] % (Auto) Cancelled Eos % (Auto) Cancelled Baso % (Auto) Cancelled Lymph # (Auto) Cancelled [place] # (Auto) Cancelled Eos # (Auto) Cancelled Baso # (Auto) Cancelled Abs Immat Gran (auto) Cancelled Absolute Neuts (auto) Cancelled Absolute Nucleated RBC 0.000 Nucleated RBC % (auto) 0.0 Neutrophils % (Manual) Band Neutrophils % Lymphocytes % (Manual) Monocytes % (Manual) Eosinophils % (Manual) Metamyelocytes % Abs Neuts (Manual) Lymphocytes # (Manual) Monocytes # (Manual) Eosinophils # (Manual) Metamyelocytes # Platelet Estimate Plt Morphology Comment RBC Morphology Hypochromasia Hepatitis A IgG Ab TB Test (T-Spot) Com TB Test Nil Control TB Test Panel A TB Test Panel B TB Test Positive Cntrl Procedures Date of Service Date of Service: 04/03/22 Progress Note: A&P Assessment and plan (1) Abnormal CT of the abdomen: Status: Acute (2) Ileitis, regional: Status: Acute (3) E. coli sepsis: Status: Acute (4) Ruptured appendix: Status: Acute Plan Explained to the patient and her again that if her white blood cell count is elevated, repeat CT of the abdomen and pelvis will be in order to see if they are undrained collections. If the undrained collections are not readily/safely drainable with IR, we would need to discuss a laparoscopy to try to wash the abdominal cavity. If the white blood cell count continues to normalize, we would continue present treatment. Given the elevation of the patient's white blood cell count to 16 K, I have ordered a stat CT of the abdomen and pelvis with oral and IV contrast and will follow-up later in the day. Please start the patient drinking oral contrast MARYBEL. Time Spent With Patient Time: Total time spent is greater than 50% in coordination of care (as documented) at patient's floor/unit and/or counseling patient: Quality Stroke Does the patient have a stroke diagnosis?: No VTE Prior VTE?: No VTE Risk Level:: Surgical - moderate VTE Device Contraindication: N/A - Device Ordered VTE Drug Contraindication: N/A - Med Ordered
[2022-04-03 07:25] LABS: Anion Gap 17 (12-20); Blood Urea Nitrogen < 2 mg/dL (9-16); Calcium 7.8 mg/dL (8.4-10.2); Carbon Dioxide 27 mmol/L (22-29); Chloride 98 mmol/L (96-108); Estimated Glomerular Filt Rate > 60; Glucose Random 100 mg/dL (60-115); Potassium 3.2 mmol/L (3.3-5.1); Sodium 139 mmol/L (135-145)
[2022-04-03 07:47] LABS: Atypical Lymph Absolute Manual 0.2 x10*3/uL; Atypical Lymphs Percent Manual 1 % (0-6); Band Neutrophils Percent 15 % (3-5); Lymphocytes Absolute Manual 0.8 X10*3/uL (1.2-4.9); Lymphocytes Percent Manual 5 % (20-40); Monocytes Absolute Manual 1.7 X10*3/uL (0.1-1.2); Monocytes Percent Manual 10 % (2-11); Neutrophils Absolute Manual 13.9 X10*3/uL (2.0-8.3); Neutrophils Percent Manual 69 % (45-73)
[2022-04-03 07:49] LABS: RBC Morphology NOTED
[2022-04-03 07:50] LABS: Acanthocytes 1+ (0-2) /OIF; Hypochromasia 1+ (5-14) /OIF; Macrocytosis 1+ (5-14) /OIF; Platelet Estimate INCREASED (NORMAL); Platelet Morphology Comment NORMAL; Polychromasia 1+ (0-2) /OIF
[2022-04-03 07:56] VITALS: BP 138/73; PULSE 85; RESP 18; TEMP 36; O2SAT 96
[2022-04-03] MEDS: Potassium Chloride/H20 10 MEQ/100 ML PIGGYBACK 100 MEQ IV ×2 (07:56→10:37)
[2022-04-03 08:08] LABS: Magnesium 1.6 mg/dL (1.6-2.6)
[2022-04-03] MEDS: metroNIDAZOLE/NS 500 MG/100 ML PIGGYBACK 100 MG IV ×3 (09:29→23:35)
[2022-04-03] MEDS: Barium Sulfate Oral (Mocha) 450 ML ORAL.SUSP 900 ML PO (11:39)
[2022-04-03] MEDS: iohexoL 350 MG/ML 100 ML INFUS..BTL IV (11:39)
--- NOTE | 2022-04-03 12:04 | HO.PM.IMPN ---
Subjective Subjective Date of Service: 04/03/22 Interval History: appendicitis with rupture Review of Systems less tender ,? denies any chest pain or shortness of breath or fever chills or cough or phlegm. Physical Exam Vital Signs: Vital Signs: Last Vital Signs Temp 96.8 F 04/03/22 07:56 Pulse 85 04/03/22 07:56 Resp 18 04/03/22 07:56 BP 138/73 04/03/22 07:56 Pulse Ox 96 04/03/22 07:56 O2 Del Method 04/03/22 07:56 BMI result Body Mass Index 29.2 Appearance: Alert.? Oriented X3.? not in distress.? cvs: rrr, [id number]. res: clear to auscultation ,no rhonchii or wheezing ext pulses present , no cyanosis ,Gait well balanced well coordinated. abd :with much less tenderness and no peritoneal sign to percussion.? Her tympany has resolved. Drains continue to put out a mix of somewhat purulence and some serous material. neuro: axo3 , nonfocal. Objective Data Active Medications Duloxetine HCl (Duloxetine Hcl 60 Mg Capsule.Dr) 60 mg PO BEDTIME [facility] Last Admin: 04/02/22 20:41 Dose: 60 mg Documented By: MALLIKA Heparin Sodium (Porcine) (Heparin Sodium,Porcine 5,000 Unit/Ml Vial) 5,000 unit SUBCUT Q12H [facility] Last Admin: 04/03/22 05:23 Dose: 5,000 unit Documented By: MALLIKA Hydromorphone HCl (Hydromorphone Hcl 0.5 Mg/0.5 Ml Syringe) 0.5 mg IVPUSH Q2H PRN; Protocol PRN Reason: Pain, Severe (Pain Scale 7-10) Last Admin: 04/03/22 09:28 Dose: 0.5 mg Documented By: TOM Promethazine HCl 12.5 mg/ (Sodium Chloride) 50.5 mls @ 202 mls/hr IV Q6H PRN PRN Reason: Vomiting Last Infusion: 04/01/22 12:26 Dose: 0 mls/hr Documented By: COTEMA Ceftriaxone Sodium 2 gm/ (Sodium Chloride) 50 mls @ 100 mls/hr IV Q24H [facility] Last Infusion: 04/02/22 10:58 Dose: 0 mls/hr Documented By: THO Metronidazole (Flagyl) 500 mg in 100 mls @ 100 mls/hr IV Q8H [facility] Last Infusion: 04/03/22 10:49 Dose: 0 mls/hr Documented By: TOM Potassium Chloride/Sodium Chloride (Kcl 20 Meq In 0.9 % Sodium Chl) 20 meq in 1,000 mls @ 30 mls/hr IVCONT .Q24H [facility] Last Infusion: 04/03/22 11:18 Dose: 0 mls/hr Documented By: TOM Ondansetron HCl (Ondansetron Hcl 4 Mg/2 Ml Vial) 4 mg IVPUSH Q6H PRN PRN Reason: Nausea and Vomiting Last Admin: 04/02/22 19:38 Dose: 4 mg Documented By: MALLIKA Sodium Chloride (0.9 % Sodium Chloride Flush 3 Ml Syringe) 3 ml IVFLUSH [facility] Last Admin: 04/03/22 07:45 Dose: Not Given Documented By: TOM Non-Admin Reason: IV Running Sodium Chloride (0.9 % Sodium Chloride Flush 3 Ml Syringe) 3 ml IVFLUSH [facility] Last Admin: 04/03/22 07:45 Dose: Not Given Documented By: TOM Non-Admin Reason: Duplicate Order Labs CBC & Chem 7: 04/03/22 05:57 04/03/22 05:57 Labs: Laboratory Results - last 24 hr 03/31/22 04/03/22 04/03/22 05:24 05:57 05:57 MCV 88.3 MCH 29.7 MCHC 33.6 RDW 13.0 Plt Count 421 H MPV 9.2 L Immature Gran % (Auto) Cancelled Neut % (Auto) Cancelled Lymph % (Auto) Cancelled [place] % (Auto) Cancelled Eos % (Auto) Cancelled Baso % (Auto) Cancelled Lymph # (Auto) Cancelled [place] # (Auto) Cancelled Eos # (Auto) Cancelled Baso # (Auto) Cancelled Abs Immat Gran (auto) Cancelled Absolute Neuts (auto) Cancelled Absolute Nucleated RBC 0.000 Nucleated RBC % (auto) 0.0 Neutrophils % (Manual) 69 Band Neutrophils % 15 H Lymphocytes % (Manual) 5 L Atypical Lymphs % (Man) 1 Monocytes % (Manual) 10 Abs Neuts (Manual) 13.9 H Lymphocytes # (Manual) 0.8 L Atyp Lymphs # (Manual) 0.2 Monocytes # (Manual) 1.7 H Platelet Estimate INCREASED Plt Morphology Comment NORMAL RBC Morphology NOTED Polychromasia 1+ (0-2) Hypochromasia 1+ (5-14) Macrocytosis 1+ (5-14) Acanthocytes (Spur) 1+ (0-2) Anion Gap 17 Estim Creat Clear Calc 117.0 Estimated GFR > 60 Random Glucose 100 Calcium 7.8 L Magnesium 1.6 TB Test (T-Spot) Com Negative TB Test Nil Control Passed TB Test Panel A 0 TB Test Panel B 0 TB Test Positive Cntrl Passed Assessment and Plan (1) Ileitis, regional: Status: Acute (2) Ruptured appendix: Status: Acute (3) Leucocytosis: Status: Acute Plan 56 year old female with history of fibromyalgia, anxiety, alcohol abuse, and former smoker with 15 pack year history quit 30 years ago admitted to general surgery for appendicitis with rupture with medical consult placed for management of possible wtihdrawal. # Sepsis d/t Ruptured appendix/petionitis s/p d successful percutaneous drainage, Initially was on Broad spec Abx (Zosyn),? Culture showed E. coli that is sensitive so was changed to Ceftriaoxone 2 grams daily, additionally culture now showing B. frlag and ? Flagyl 03/29 with good effect, WBC trending down ?further intervention per surgery, ID following. Repeat CT of 03/28: finding noted leucocytosis trending up, surgery followin #? IBD-- see by GI with following remarks - Hep serologies, TSPOT and TPMT ordered - Outpatient follow up will be set up for ? Crohns. Please call back for any questions or concerns.--Dr Grajeda #Tachycardia--related to above and is resolved #Alcohol abuse -Consumes 2-3 hard alcohol beverages daily, last drink per patient 5 prior to admission. Has shown no s/x of withdrawal and unlikely to withdraw at this time. No need to check CIWA #Benzo use -no benzos in 10 months (prescribed short-term Valium for pain) #Elevated BP--presently normal will follow Need for hospitalization: defer to surgery Quality Stroke Does the patient have a stroke diagnosis?: No VTE Prior VTE?: No VTE Risk Level:: Surgical - moderate VTE Device Contraindication: N/A - Device Ordered VTE Drug Contraindication: N/A - Med Ordered
[2022-04-03 13:55] VITALS: BP 135/76; PULSE 99; RESP 18; TEMP 36.5; O2SAT 97
[2022-04-03] MEDS: KCl 20 mEq in 0.9 % Sodium ChL 20 MEQ/1,000 ML IV.SOLN 30 MEQ IVCONT (14:25)
[2022-04-03] MEDS: cefTRIAXone sodium 2 GM in 0.9 % Sodium Chloride 50 ML IV (14:25)
[2022-04-03] MEDS: ondansetron HCL 4 MG/2 ML VIAL IVPUSH ×2 (14:26→20:32)
[2022-04-03 15:34] VITALS: BP 136/70; PULSE 88; RESP 17; TEMP 36.3; O2SAT 97
[2022-04-03 19:35] VITALS: BP 121/72; PULSE 84; RESP 17; TEMP 36.4; O2SAT 98
[2022-04-03] MEDS: DULoxetine HCl 60 MG CAPSULE.DR PO (20:26)
[2022-04-04] VITALS (11 sets, daily range): BP systolic 115–137; BP diastolic 60–84; PULSE 80–102; RESP 17–22; TEMP 36–36.7; O2SAT 92–97
[2022-04-04] MEDS: HYDROmorphone HCl 0.5 MG/0.5 ML SYRINGE IVPUSH ×7 (04:24→22:28)
[2022-04-04 07:09] LABS: MANUAL DIFF FLAG NO
[2022-04-04 07:13] LABS: Basophils Absolute Auto 0.1 X10*3/uL (0.0-0.2); Basophils Percent Auto 0.6 % (0-2); Eosinophils Absolute Auto 0.1 X10*3/uL (0.0-0.4); Eosinophils Percent Auto 0.6 % (0-4); Hematocrit 31.4 % (37.0-47.0); Hemoglobin 10.3 g/dl (12.0-16.0); Imm Gran Abs Auto 0.69 X10*3/uL (0.00-0.03); Imm Gran Pct Auto 4.5 % (0.0-0.4); Lymphocytes Absolute Auto 1.4 X10*3/uL (1.2-4.9); Lymphocytes Percent Auto 9.4 % (20-40); Mean Corpuscular HGB Conc 32.8 g/dl (31.0-35.0); Mean Corpuscular Hemoglobin 29.6 pg (27.0-33.0); Mean Corpuscular Volume 90.2 fL (80.0-98.0); Mean Platelet Volume 9.2 fL (9.4-12.3); Monocytes Absolute Auto 1.1 X10*3/uL (0.1-1.2); Monocytes Percent Auto 7.2 % (2-11); Neutrophils Absolute Auto 11.8 x10*3/uL (2.0-8.3); Neutrophils Percent Auto 77.7 % (45-73); Platelet Count 429 X10*3/uL (160-400); Red Blood Count 3.48 X10*6/uL (4.20-5.50); Red Cell Distribution Width 13.2 % (11.0-16.0); White Blood Count 15.2 X10*3/uL (4.8-10.8)
[2022-04-04 07:36] LABS: Anion Gap 16 (12-20); Blood Urea Nitrogen 2 mg/dL (9-16); Calcium 7.7 mg/dL (8.4-10.2); Carbon Dioxide 27 mmol/L (22-29); Chloride 99 mmol/L (96-108); Creatinine Clr Calc Pharmacy 104.9; Estimated Glomerular Filt Rate > 60; Glucose Random 97 mg/dL (60-115); Potassium 3.3 mmol/L (3.3-5.1); Sodium 139 mmol/L (135-145)
[2022-04-04] MEDS: metroNIDAZOLE/NS 500 MG/100 ML PIGGYBACK 100 MG IV ×3 (07:45→23:40)
--- NOTE | 2022-04-04 08:10 | P.PNGS_ITS ---
Subjective Subjective Date of Service: 04/04/22 Patient reports: no new complaints and feels better Interval history: The patient was seen at 0700. She is awake and reports that she feels better. She is passing gas and had another bowel movement. She tolerated her diet until she was made NPO after midnight. The importance of maintaining NPO to allow percutaneous drainage of the pelvic collection was again reviewed. She otherwise denies chest pain, difficulty breathing or shortness of breath. She has no new complaints. Physical Exam Vital Signs: Vital Signs: Last Vital Signs Temp 97.8 F 04/04/22 07:38 Pulse 83 04/04/22 07:38 Resp 18 04/04/22 07:38 BP 130/73 04/04/22 07:38 Pulse Ox 95 04/04/22 07:38 O2 Del Method 04/04/22 07:38 BMI result Body Mass Index 29.2 On exam she is in good spirits, well rested and nontoxic Her abdomen is surprisingly benign Objective Data Active Medications Duloxetine HCl (Duloxetine Hcl 60 Mg Capsule.) 60 mg PO BEDTIME [facility] Last Admin: 04/03/22 20:26 Dose: 60 mg Documented By: MALLIKA Hydromorphone HCl (Hydromorphone Hcl 0.5 Mg/0.5 Ml Syringe) 0.5 mg IVPUSH Q2H PRN; Protocol PRN Reason: Pain, Severe (Pain Scale 7-10) Last Admin: 04/04/22 07:41 Dose: 0.5 mg Documented By: THO Promethazine HCl 12.5 mg/ (Sodium Chloride) 50.5 mls @ 202 mls/hr IV Q6H PRN PRN Reason: Vomiting Last Infusion: 04/03/22 18:35 Dose: 0 mls/hr Documented By: TOM Metronidazole (Flagyl) 500 mg in 100 mls @ 100 mls/hr IV Q8H [facility] Last Admin: 04/04/22 07:45 Dose: 100 mls/hr Documented By: THO Potassium Chloride/Sodium Chloride (Kcl 20 Meq In 0.9 % Sodium Chl) 20 meq in 1,000 mls @ 30 mls/hr IVCONT .Q24H [facility] Last Admin: 04/03/22 14:25 Dose: 30 mls/hr Documented By: TOM Ceftriaxone Sodium 2 gm/ (Sodium Chloride) 50 mls @ 100 mls/hr IV Q24H [facility] Last Admin: 04/03/22 14:59 Dose: Not Given Documented By: TOM Non-Admin Reason: Previously Administered Ondansetron HCl (Ondansetron Hcl 4 Mg/2 Ml Vial) 4 mg IVPUSH Q6H PRN PRN Reason: Nausea and Vomiting Last Admin: 04/03/22 20:32 Dose: 4 mg Documented By: MALLIKA Sodium Chloride (0.9 % Sodium Chloride Flush 3 Ml Syringe) 3 ml IVFLUSH [facility] Last Admin: 04/04/22 07:44 Dose: Not Given Documented By: THO Non-Admin Reason: IV Running Sodium Chloride (0.9 % Sodium Chloride Flush 3 Ml Syringe) 3 ml IVFLUSH [facility] Last Admin: 04/04/22 07:45 Dose: Not Given Documented By: THO Non-Admin Reason: IV Running Labs CBC & Chem 7: 04/04/22 05:49 04/04/22 05:49 Labs: Laboratory Results - last 24 hr 04/04/22 04/04/22 05:49 05:49 MCV 90.2 MCH 29.6 MCHC 32.8 RDW 13.2 Plt Count 429 H MPV 9.2 L Immature Gran % (Auto) 4.5 H Neut % (Auto) 77.7 H Lymph % (Auto) 9.4 L [place] % (Auto) 7.2 Eos % (Auto) 0.6 Baso % (Auto) 0.6 Lymph # (Auto) 1.4 [place] # (Auto) 1.1 Eos # (Auto) 0.1 Baso # (Auto) 0.1 Abs Immat Gran (auto) 0.69 H Absolute Neuts (auto) 11.8 H Absolute Nucleated RBC 0.000 Nucleated RBC % (auto) 0.0 Anion Gap 16 Estim Creat Clear Calc 104.9 Estimated GFR > 60 Random Glucose 97 Calcium 7.7 L Procedures Date of Service Date of Service: 04/04/22 Progress Note: A&P Assessment and plan (1) Ileitis, regional: Status: Acute (2) E. coli sepsis: Status: Acute (3) Leucocytosis: Status: Acute (4) Abnormal CT of the abdomen: Status: Acute (5) Ruptured appendix: Status: Acute Plan Patient for IR drainage and placement of a pigtail catheter in her pelvic abscess. Will plan to continue antibiotics through the weekend, trend white count and re-evaluate for clinical progress on Thursday. Time Spent With Patient Time: Total time spent is greater than 50% in coordination of care (as documented) at patient's floor/unit and/or counseling patient: Quality Stroke Does the patient have a stroke diagnosis?: No VTE Prior VTE?: No VTE Risk Level:: Surgical - moderate VTE Device Contraindication: N/A - Device Ordered VTE Drug Contraindication: N/A - Med Ordered
--- NOTE | 2022-04-04 10:24 | HO.RADPN ---
RADIOLOGY Narrative Narrative: using ct guidance and accustick system, access to the abcess in between the uterus and bladder obtained. 6.3 fr drain coud not be placed. collection aspirated with 6 fr accustick dilater. 20 ml cueto/slighlty bloody purulent fluid removed. Specimen sent for culture. Right lower quadrant and posterior cul de sac pelvic drains removed.
[2022-04-04] MEDS: ondansetron HCL 4 MG/2 ML VIAL IVPUSH ×2 (11:29→18:23)
--- NOTE | 2022-04-04 11:35 | PC.NURSE ---
Patient is upset stating wanted to wash her hair for a while, had 3 drains until just now therefore was not able to take showers before. Today 2 drains were removed and only one on left abd is present. This RN just affered to cover that drain and IV site so patient can take a shower or even assisst to was hair at the sink. Patient refused and asked to be left alone. Patient is low fall risk, independant,alert and oriented.
--- NOTE | 2022-04-04 14:03 | P.PNIM_ITS ---
Subjective Subjective Date of Service: 04/04/22 Interval History: appendicitis with rupture Review of Systems less tender ,? denies any chest pain or shortness of breath or fever chills or cough or phlegm. Physical Exam Vital Signs: Vital Signs: Last Vital Signs Temp 98.0 F 04/04/22 12:30 Pulse 84 04/04/22 12:30 Resp 18 04/04/22 12:30 BP 132/76 04/04/22 12:30 Pulse Ox 96 04/04/22 12:30 O2 Del Method 04/04/22 12:30 BMI result Body Mass Index 29.2 Appearance: Alert.? Oriented X3.? not in distress.? cvs: rrr, [id number]. res: clear to auscultation ,no rhonchii or wheezing ext pulses present , no cyanosis ,Gait well balanced well coordinated. abd :with much less tenderness and no peritoneal sign to percussion.? Her tympany has resolved. Drains continue to put out a mix of somewhat purulence and some serous material. neuro: axo3 , nonfocal. Objective Data Active Medications Duloxetine HCl (Duloxetine Hcl 60 Mg Capsule.Dr) 60 mg PO BEDTIME [facility] Last Admin: 04/03/22 20:26 Dose: 60 mg Documented By: MALLIKA Hydromorphone HCl (Hydromorphone Hcl 0.5 Mg/0.5 Ml Syringe) 0.5 mg IVPUSH Q2H PRN; Protocol PRN Reason: Pain, Severe (Pain Scale 7-10) Last Admin: 04/04/22 11:29 Dose: 0.5 mg Documented By: THO Promethazine HCl 12.5 mg/ (Sodium Chloride) 50.5 mls @ 202 mls/hr IV Q6H PRN PRN Reason: Vomiting Last Infusion: 04/03/22 18:35 Dose: 0 mls/hr Documented By: TOM Metronidazole (Flagyl) 500 mg in 100 mls @ 100 mls/hr IV Q8H [facility] Last Infusion: 04/04/22 08:59 Dose: 0 mls/hr Documented By: THO Potassium Chloride/Sodium Chloride (Kcl 20 Meq In 0.9 % Sodium Chl) 20 meq in 1,000 mls @ 30 mls/hr IVCONT .Q24H [facility] Last Admin: 04/04/22 09:35 Dose: Not Given Documented By: THO Non-Admin Reason: IV Running Ceftriaxone Sodium 2 gm/ (Sodium Chloride) 50 mls @ 100 mls/hr IV Q24H [facility] Last Admin: 04/03/22 14:59 Dose: Not Given Documented By: TOM Non-Admin Reason: Previously Administered Ondansetron HCl (Ondansetron Hcl 4 Mg/2 Ml Vial) 4 mg IVPUSH Q6H PRN PRN Reason: Nausea and Vomiting Last Admin: 04/04/22 11:29 Dose: 4 mg Documented By: THO Sodium Chloride (0.9 % Sodium Chloride Flush 3 Ml Syringe) 3 ml IVFLUSH [facility] Last Admin: 04/04/22 07:44 Dose: Not Given Documented By: THO Non-Admin Reason: IV Running Sodium Chloride (0.9 % Sodium Chloride Flush 3 Ml Syringe) 3 ml IVFLUSH [facility] Last Admin: 04/04/22 07:45 Dose: Not Given Documented By: THO Non-Admin Reason: IV Running Labs CBC & Chem 7: 04/04/22 05:49 04/04/22 05:49 Labs: Laboratory Results - last 24 hr 04/04/22 04/04/22 05:49 05:49 MCV 90.2 MCH 29.6 MCHC 32.8 RDW 13.2 Plt Count 429 H MPV 9.2 L Immature Gran % (Auto) 4.5 H Neut % (Auto) 77.7 H Lymph % (Auto) 9.4 L [place] % (Auto) 7.2 Eos % (Auto) 0.6 Baso % (Auto) 0.6 Lymph # (Auto) 1.4 [place] # (Auto) 1.1 Eos # (Auto) 0.1 Baso # (Auto) 0.1 Abs Immat Gran (auto) 0.69 H Absolute Neuts (auto) 11.8 H Absolute Nucleated RBC 0.000 Nucleated RBC % (auto) 0.0 Anion Gap 16 Estim Creat Clear Calc 104.9 Estimated GFR > 60 Random Glucose 97 Calcium 7.7 L Microbiology Microbiology Results: Microbiology 04/04/22 10:00 Gram Stain - Final Peritoneal Fluid Assessment and Plan (1) Leucocytosis: Status: Acute (2) Ruptured appendix: Status: Acute Plan 56 year old female with history of fibromyalgia, anxiety, alcohol abuse, and former smoker with 15 pack year history quit 30 years ago admitted to general surgery for appendicitis with rupture with medical consult placed for management of possible wtihdrawal. # Sepsis d/t Ruptured appendix/petionitis s/p d successful percutaneous drainage, Initially was on Broad spec Abx (Zosyn),? Culture showed E. coli that is sensitive so was changed to Ceftriaoxone 2 grams daily, additionally culture now showing B. frlag and ? Flagyl 03/29 with good effect, WBC trending down ?further intervention per surgery, ID following. Repeat CT of 03/28: finding noted 04/03:?IR drainage and placement of a pigtail catheter in her pelvic abscess.? Will plan to continue antibiotics through the weekend, trend white count and surgery will re-evaluate for clinical progress on next week. leucocytosis trending down, surgery followin #? IBD-- see by GI with following remarks - Hep serologies, TSPOT and TPMT ordered - Outpatient follow up will be set up for ? Crohns. Please call back for any questions or concerns.--Dr Grajeda #Tachycardia--related to above and is resolved #Alcohol abuse -Consumes 2-3 hard alcohol beverages daily, last drink per patient 5 prior to ad mission. Has shown no s/x of withdrawal and unlikely to withdraw at this time. No need to check CIWA #Benzo use -no benzos in 10 months (prescribed short-term Valium for pain) #Elevated BP--presently normal will follow Need for hospitalization: pelvic abcess -IR drainage and placement of a pigtail catheter in her pelvic abscess,on iv antibiotics ,suregry will plan dispo according to reponse to treatment over weekend. Quality Stroke Does the patient have a stroke diagnosis?: No VTE Prior VTE?: No VTE Risk Level:: Surgical - moderate VTE Device Contraindication: N/A - Device Ordered VTE Drug Contraindication: N/A - Med Ordered
[2022-04-04] MEDS: cefTRIAXone sodium 2 GM in 0.9 % Sodium Chloride 50 ML IV (15:10)
--- NOTE | 2022-04-04 15:12 | MHC.CLN ---
F/U CURRENT DIET=REGULAR. ENSURE CLEAR TID PROVIDES ADDITIONAL 720 KCALS, 24 G PROTEIN. DIET NPO THIS MORNING AND NOW ADVANCED. INTAKE APPEARED GOOD WITH REGULAR DIET PRIOR TO NPO. CONTINUE TO FOLLOW FOR INTAKE AND DIET TOLERANCE.
--- NOTE | 2022-04-04 16:20 | MHC.CM.PN ---
PT NOT YET MEDICALLY CLEARED DCP: HOME WITH NO SERVICES FAMILY TO TRANSPORT
[2022-04-04] MEDS: DULoxetine HCl 60 MG CAPSULE.DR PO (20:18)
[2022-04-04 20:33] LABS: TPMT Activity 15
[2022-04-05] VITALS (11 sets, daily range): BP systolic 111–130; BP diastolic 58–69; PULSE 84–92; RESP 16–18; TEMP 35.9–37.1; O2SAT 92–98
[2022-04-05] MEDS: HYDROmorphone HCl 0.5 MG/0.5 ML SYRINGE IVPUSH ×9 (00:37→23:17)
[2022-04-05] MEDS: KCl 20 mEq in 0.9 % Sodium ChL 20 MEQ/1,000 ML IV.SOLN 30 MEQ IVCONT (03:19)
[2022-04-05 06:23] LABS: MANUAL DIFF FLAG NO
[2022-04-05 06:28] LABS: Basophils Percent Auto 0.3 % (0-2); Eosinophils Absolute Auto 0.1 X10*3/uL (0.0-0.4); Hemoglobin 10.3 g/dl (12.0-16.0); Imm Gran Abs Auto 0.35 X10*3/uL (0.00-0.03); Imm Gran Pct Auto 2.6 % (0.0-0.4); Lymphocytes Absolute Auto 1.5 X10*3/uL (1.2-4.9); Lymphocytes Percent Auto 10.9 % (20-40); Mean Corpuscular HGB Conc 33.2 g/dl (31.0-35.0); Mean Corpuscular Hemoglobin 30.1 pg (27.0-33.0); Mean Corpuscular Volume 90.6 fL (80.0-98.0); Mean Platelet Volume 8.6 fL (9.4-12.3); Monocytes Absolute Auto 1.1 X10*3/uL (0.1-1.2); Neutrophils Absolute Auto 10.5 x10*3/uL (2.0-8.3); Neutrophils Percent Auto 77.2 % (45-73); Platelet Count 407 X10*3/uL (160-400); Red Blood Count 3.42 X10*6/uL (4.20-5.50); Red Cell Distribution Width 13.2 % (11.0-16.0); White Blood Count 13.6 X10*3/uL (4.8-10.8)
[2022-04-05 06:44] LABS: Anion Gap 14 (12-20); Blood Urea Nitrogen 2 mg/dL (9-16); Calcium 8.1 mg/dL (8.4-10.2); Carbon Dioxide 30 mmol/L (22-29); Chloride 99 mmol/L (96-108); Creatinine Clr Calc Pharmacy 101.4; Estimated Glomerular Filt Rate > 60; Glucose Random 103 mg/dL (60-115); Sodium 140 mmol/L (135-145)
[2022-04-05] MEDS: ondansetron HCL 4 MG/2 ML VIAL IVPUSH ×2 (08:00→17:35)
[2022-04-05] MEDS: metroNIDAZOLE/NS 500 MG/100 ML PIGGYBACK 100 MG IV ×3 (08:00→23:17)
[2022-04-05] MEDS: Potassium Chloride Packet 20 MEQ PACKET 40 MEQ PO (08:00)
--- NOTE | 2022-04-05 10:09 | P.PNIM_ITS ---
Subjective Subjective Date of Service: 04/05/22 Interval History: appendicitis with rupture Review of Systems less tender ,? denies any chest pain or shortness of breath or fever chills or cough or phlegm. Physical Exam Vital Signs: Vital Signs: Last Vital Signs Temp 97.9 F 04/05/22 07:02 Pulse 84 04/05/22 07:02 Resp 17 04/05/22 07:59 BP 129/69 04/05/22 07:02 Pulse Ox 92 04/05/22 07:02 O2 Del Method 04/05/22 07:02 BMI result Body Mass Index 29.2 Appearance: Alert.? Oriented X3.? not in distress.? cvs: rrr, [id number]. res: clear to auscultation ,no rhonchii or wheezing ext pulses present , no cyanosis ,Gait well balanced well coordinated. abd :with much less tenderness and no peritoneal sign to percussion.? Her tympany has resolved. Drains continue to put out a mix of somewhat purulence and some serous material. neuro: axo3 , nonfocal. Objective Data Active Medications Duloxetine HCl (Duloxetine Hcl 60 Mg Capsule.Dr) 60 mg PO BEDTIME [facility] Last Admin: 04/04/22 20:18 Dose: 60 mg Documented By: KAREN Hydromorphone HCl (Hydromorphone Hcl 0.5 Mg/0.5 Ml Syringe) 0.5 mg IVPUSH Q2H PRN; Protocol PRN Reason: Pain, Severe (Pain Scale 7-10) Last Admin: 04/05/22 07:59 Dose: 0.5 mg Documented By: CHRIS Promethazine HCl 12.5 mg/ (Sodium Chloride) 50.5 mls @ 202 mls/hr IV Q6H PRN PRN Reason: Vomiting Last Infusion: 04/03/22 18:35 Dose: 0 mls/hr Documented By: TOM Metronidazole (Flagyl) 500 mg in 100 mls @ 100 mls/hr IV Q8H [facility] Last Infusion: 04/05/22 09:26 Dose: 0 mls/hr Documented By: ROMIEEMA Potassium Chloride/Sodium Chloride (Kcl 20 Meq In 0.9 % Sodium Chl) 20 meq in 1,000 mls @ 30 mls/hr IVCONT .Q24H [facility] Last Admin: 04/05/22 03:19 Dose: 30 mls/hr Documented By: KIP Ceftriaxone Sodium 2 gm/ (Sodium Chloride) 50 mls @ 100 mls/hr IV Q24H [facility] Last Infusion: 04/04/22 15:58 Dose: 0 mls/hr Documented By: THO Ondansetron HCl (Ondansetron Hcl 4 Mg/2 Ml Vial) 4 mg IVPUSH Q6H PRN PRN Reason: Nausea and Vomiting Last Admin: 04/05/22 08:00 Dose: 4 mg Documented By: CHRIS Sodium Chloride (0.9 % Sodium Chloride Flush 3 Ml [facility]) [facility] Last Admin: 04/05/22 07:34 Dose: Not Given Documented By: CHRIS Non-Admin Reason: IV Running Sodium Chloride (0.9 % Sodium Chloride Flush 3 Ml Syringe) 3 ml IVFLUSH [facility] Last Admin: 04/05/22 07:34 Dose: Not Given Documented By: CHRIS Non-Admin Reason: IV Running Labs CBC & Chem 7: 04/05/22 06:13 04/05/22 06:13 Labs: Laboratory Results - last 24 hr 03/30/22 04/05/22 04/05/22 05:42 06:13 06:13 MCV 90.6 MCH 30.1 MCHC 33.2 RDW 13.2 Plt Count 407 H MPV 8.6 L Immature Gran % (Auto) 2.6 H Neut % (Auto) 77.2 H Lymph % (Auto) 10.9 L [place] % (Auto) 8.0 Eos % (Auto) 1.0 Baso % (Auto) 0.3 Lymph # (Auto) 1.5 [place] # (Auto) 1.1 Eos # (Auto) 0.1 Baso # (Auto) 0.0 Abs Immat Gran (auto) 0.35 H Absolute Neuts (auto) 10.5 H Absolute Nucleated RBC 0.000 Nucleated RBC % (auto) 0.0 Anion Gap 14 Estim Creat Clear Calc 101.4 Estimated GFR > 60 Random Glucose 103 Calcium 8.1 L TPMT Activity, Quant 15 Microbiology Microbiology Results: Microbiology 04/04/22 10:00 Gram Stain - Final Peritoneal Fluid Routine Culture - Preliminary No growth to date. Anaerobic Culture - Preliminary No growth to date. Assessment and Plan (1) Leucocytosis: Status: Acute (2) Ruptured appendix: Status: Acute Plan 56 year old female with history of fibromyalgia, anxiety, alcohol abuse, and former smoker with 15 pack year history quit 30 years ago admitted to general surgery for appendicitis with rupture with medical consult placed for management of possible wtihdrawal. # Sepsis d/t Ruptured appendix/petionitis s/p d successful percutaneous drainage, Initially was on Broad spec Abx (Zosyn),? Culture showed E. coli that is sensitive so was changed to Ceftriaoxone 2 grams daily, additionally culture now showing B. frlag and ? Flagyl 03/29 with good effect, WBC trending down ?further intervention per surgery, ID following. Repeat CT of 03/28: finding noted 04/03:?IR drainage and placement of a pigtail catheter in her pelvic abscess.? Will plan to continue antibiotics through the weekend, trend white count and surgery will re-evaluate for clinical progress on next week. leucocytosis trending down, surgery followin #? IBD-- see by GI with following remarks - Hep serologies, TSPOT and TPMT ordered - Outpatient follow up will be set up for ? Crohns. Please call back for any questions or concerns.--Dr Grajeda #Tachycardia--related to above and is resolved #Alcohol abuse -Consumes 2-3 hard alcohol beverages daily, last drink per patient 5 prior to admission. Has shown no s/x of withdrawal and unlikely to withdraw at this time. No need to check CIWA #Benzo use -no benzos in 10 months (prescribed short-term Valium for pain) #Elevated BP--presently normal will follow Need for hospitalization: pelvic abcess -IR drainage and placement of a pigtail catheter in her pelvic abscess,on iv antibiotics ,suregry will plan dispo according to reponse to treatment over weekend. Quality Stroke Does the patient have a stroke diagnosis?: No VTE Prior VTE?: No VTE Risk Level:: Surgical - moderate VTE Device Contraindication: N/A - Device Ordered VTE Drug Contraindication: N/A - Med Ordered
--- NOTE | 2022-04-05 14:00 | PM.PNGS ---
Subjective Subjective Date of Service: 04/05/22 Interval history: feeling well no fevers still sore anterior abdomen - walking around and passing gas but not much bowel movement drain draining Physical Exam Vital Signs: Vital Signs: Last Vital Signs Temp 96.7 F L 04/05/22 11:05 Pulse 88 04/05/22 11:05 Resp 17 04/05/22 11:25 BP 130/68 04/05/22 11:05 Pulse Ox 98 04/05/22 11:05 O2 Del Method 04/05/22 11:05 BMI result Body Mass Index 29.2 GI: Other: abdo little distended good bowel sounds tender right lower quadrant no peritonitis Psych: Appearance: grossly normal Mental Status: mental status grossly normal Speech and movement: Normal speech and movement present Affect: normal affect Attitude: cooperative Thought process: Normal thought process present Thought content: Normal thought content present Insight: Good insight present (Psych) Judgement: Good judgement present (Psych) Objective Data Active Medications Duloxetine HCl (Duloxetine Hcl 60 Mg Capsule.Dr) 60 mg PO BEDTIME [facility] Last Admin: 04/04/22 20:18 Dose: 60 mg Documented By: KAREN Hydromorphone HCl (Hydromorphone Hcl 0.5 Mg/0.5 Ml Syringe) 0.5 mg IVPUSH Q2H PRN; Protocol PRN Reason: Pain, Severe (Pain Scale 7-10) Last Admin: 04/05/22 11:25 Dose: 0.5 mg Documented By: ROMIEEMA Promethazine HCl 12.5 mg/ (Sodium Chloride) 50.5 mls @ 202 mls/hr IV Q6H PRN PRN Reason: Vomiting Last Infusion: 04/05/22 11:49 Dose: 0 mls/hr Documented By: COTEMA Metronidazole (Flagyl) 500 mg in 100 mls @ 100 mls/hr IV Q8H [facility] Last Infusion: 04/05/22 09:26 Dose: 0 mls/hr Documented By: ROMIEEMA Potassium Chloride/Sodium Chloride (Kcl 20 Meq In 0.9 % Sodium Chl) 20 meq in 1,000 mls @ 30 mls/hr IVCONT .Q24H [facility] Last Admin: 04/05/22 03:19 Dose: 30 mls/hr Documented By: KIP Ceftriaxone Sodium 2 gm/ (Sodium Chloride) 50 mls @ 100 mls/hr IV Q24H [facility] Last Infusion: 04/04/22 15:58 Dose: 0 mls/hr Documented By: THO Ondansetron HCl (Ondansetron Hcl 4 Mg/2 Ml Vial) 4 mg IVPUSH Q6H PRN PRN Reason: Nausea and Vomiting Last Admin: 04/05/22 08:00 Dose: 4 mg Documented By: CHRIS Sodium Chloride (0.9 % Sodium Chloride Flush 3 Ml Syringe) 3 ml IVFLUSH [facility] Last Admin: 04/05/22 07:34 Dose: Not Given Documented By: COTEMA Non-Admin Reason: IV Running Sodium Chloride (0.9 % Sodium Chloride Flush 3 Ml Syringe) 3 ml IVFLUSH [facility] Last Admin: 04/05/22 07:34 Dose: Not Given Documented By: CHRSI Non-Admin Reason: IV Running Labs CBC & Chem 7: 04/05/22 06:13 04/05/22 06:13 Labs: Laboratory Results - last 24 hr 03/30/22 04/05/22 04/05/22 05:42 06:13 06:13 MCV 90.6 MCH 30.1 MCHC 33.2 RDW 13.2 Plt Count 407 H MPV 8.6 L Immature Gran % (Auto) 2.6 H Neut % (Auto) 77.2 H Lymph % (Auto) 10.9 L [place] % (Auto) 8.0 Eos % (Auto) 1.0 Baso % (Auto) 0.3 Lymph # (Auto) 1.5 [place] # (Auto) 1.1 Eos # (Auto) 0.1 Baso # (Auto) 0.0 Abs Immat Gran (auto) 0.35 H Absolute Neuts (auto) 10.5 H Absolute Nucleated RBC 0.000 Nucleated RBC % (auto) 0.0 Anion Gap 14 Estim Creat Clear Calc 101.4 Estimated GFR > 60 Random Glucose 103 Calcium 8.1 L TPMT Activity, Quant 15 Microbiology Microbiology Results: Microbiology 04/04/22 10:00 Gram Stain - Final Peritoneal Fluid Routine Culture - Preliminary No growth to date. Anaerobic Culture - Preliminary No growth to date. Procedures Date of Service Date of Service: 04/05/22 Progress Note: A&P Assessment and plan (1) Ruptured appendix: Status: Acute Assessment and Plan: 56 year old female with prob ruptured appy and phlegmon area in right lower quadrant - readjusted drains yesterday and doing well- wbc lowest so far and no fevers or chills biju po diet And ambulating at sacrum. Plan to continue with diet, IV ceftriaxone and Flagyl. Follow labs. Bowel regimen. Patient and her understand agree with the above plan Time Spent With Patient Time: Total time spent is greater than 50% in coordination of care (as documented) at patient's floor/unit and/or counseling patient: Quality Stroke Does the patient have a stroke diagnosis?: No VTE Prior VTE?: No VTE Risk Level:: Surgical - moderate VTE Device Contraindication: N/A - Device Ordered VTE Drug Contraindication: N/A - Med Ordered
[2022-04-05] MEDS: cefTRIAXone sodium 2 GM in 0.9 % Sodium Chloride 50 ML IV (14:31)
[2022-04-05] MEDS: Docusate Sodium 100 MG CAPSULE PO (20:07)
[2022-04-05] MEDS: DULoxetine HCl 60 MG CAPSULE.DR PO (20:07)
[2022-04-05] MEDS: 0.9 % Sodium Chloride Flush 3 ML SYRINGE IVFLUSH (23:22)
[2022-04-06] VITALS (9 sets, daily range): BP systolic 109–133; BP diastolic 55–71; PULSE 78–110; RESP 16–19; TEMP 35.6–36.7; O2SAT 95–98
[2022-04-06] MEDS: HYDROmorphone HCl 0.5 MG/0.5 ML SYRINGE IVPUSH ×8 (01:04→23:24)
[2022-04-06] MEDS: KCl 20 mEq in 0.9 % Sodium ChL 20 MEQ/1,000 ML IV.SOLN 30 MEQ IVCONT (04:42)
[2022-04-06 08:37] LABS: Potassium 3.6 mmol/L (3.3-5.1)
[2022-04-06] MEDS: ondansetron HCL 4 MG/2 ML VIAL IVPUSH ×2 (08:58→17:52)
[2022-04-06] MEDS: metroNIDAZOLE/NS 500 MG/100 ML PIGGYBACK 100 MG IV ×3 (08:58→23:24)
[2022-04-06] MEDS: Docusate Sodium 100 MG CAPSULE PO ×2 (08:58→20:17)
--- NOTE | 2022-04-06 10:06 | P.PNIM_ITS ---
Subjective Subjective Date of Service: 04/07/22 Interval History: appendicitis with rupture Review of Systems less tender ,? denies any chest pain or shortness of breath or fever chills or cough or phlegm. Physical Exam Vital Signs: Vital Signs: Last Vital Signs Temp 97 F 04/06/22 07:14 Pulse 110 H 04/06/22 07:14 Resp 18 04/06/22 08:58 BP 133/60 04/06/22 07:14 Pulse Ox 96 04/06/22 07:14 O2 Del Method 04/06/22 07:14 BMI result Body Mass Index 29.2 Appearance: Alert.? Oriented X3.? not in distress.? cvs: rrr, [id number]. res: clear to auscultation ,no rhonchii or wheezing ext pulses present , no cyanosis . abd :with much less tenderness and no peritoneal sign to percussion.? Her tympany has resolved. Drains continue to put out a mix of somewhat purulence and some serous material. neuro: axo3 , nonfocal. Objective Data Active Medications Docusate Sodium (Docusate Sodium 100 Mg Capsule) 100 mg PO BID [facility] Last Admin: 04/06/22 08:58 Dose: 100 mg Documented By: CHRIS Duloxetine HCl (Duloxetine Hcl 60 Mg Capsule.Dr) 60 mg PO BEDTIME [facility] Last Admin: 04/05/22 20:07 Dose: 60 mg Documented By: KIP Hydromorphone HCl (Hydromorphone Hcl 0.5 Mg/0.5 Ml Syringe) 0.5 mg IVPUSH Q2H PRN; Protocol PRN Reason: Pain, Severe (Pain Scale 7-10) Last Admin: 04/06/22 08:58 Dose: 0.5 mg Documented By: COTEMA Promethazine HCl 12.5 mg/ (Sodium Chloride) 50.5 mls @ 202 mls/hr IV Q6H PRN PRN Reason: Vomiting Last Infusion: 04/05/22 11:49 Dose: 0 mls/hr Documented By: COTEMA Metronidazole (Flagyl) 500 mg in 100 mls @ 100 mls/hr IV Q8H [facility] Last Infusion: 04/06/22 10:01 Dose: 0 mls/hr Documented By: DESIREE.COTEMA Ceftriaxone Sodium 2 gm/ (Sodium Chloride) 50 mls @ 100 mls/hr IV Q24H [facility] Last Infusion: 04/05/22 15:02 Dose: 0 mls/hr Documented By: COTEMA Ondansetron HCl (Ondansetron Hcl 4 Mg/2 Ml Vial) 4 mg IVPUSH Q6H PRN PRN Reason: Nausea and Vomiting Last Admin: 04/06/22 08:58 Dose: 4 mg Documented By: COTEMA Sodium Chloride (0.9 % Sodium Chloride Flush 3 Ml Syringe) 3 ml IVFLUSH QSHIFT COUNT [facility] Last Admin: 04/06/22 07:20 Dose: Not Given Documented By: COTEMA Non-Admin Reason: IV Running Sodium Chloride (0.9 % Sodium Chloride Flush 3 Ml Syringe) 3 ml IVFLUSH QSHIFT COUNT [facility]CLUDES [facility] Last Admin: 04/06/22 07:20 Dose: Not Given Documented By: COTEMA Non-Admin Reason: IV Running Labs CBC & Chem 7: 04/05/22 06:13 04/06/22 07:56 Microbiology Microbiology Results: Microbiology 04/04/22 10:00 Gram Stain - Final Peritoneal Fluid Routine Culture - Final No growth after 2 days Anaerobic Culture - Preliminary No growth to date. Assessment and Plan (1) Acute hypokalemia: Status: Acute (2) Ileitis, regional: Status: Acute (3) Ruptured appendix: Status: Acute Plan 56 year old female with history of fibromyalgia, anxiety, alcohol abuse, and former smoker with 15 pack year history quit 30 years ago admitted to general surgery for appendicitis with rupture with medical consult placed for management of possible wtihdrawal. # Sepsis d/t Ruptured appendix/petionitis s/p d successful percutaneous jai geri, Initially was on Broad spec Abx (Zosyn),? Culture showed E. coli that is sensitive so was changed to Ceftriaoxone 2 grams daily, additionally culture now showing B. frlag and ? Flagyl 03/29 with good effect, WBC trending down ?further intervention per surgery, ID following. Repeat CT of 03/28: finding noted 04/03:?IR drainage and placement of a pigtail catheter in her pelvic abscess.? Will plan to continue antibiotics through the weekend, trend white count and surgery will re-evaluate for clinical progress on next week. leucocytosis trending down, surgery followin #? IBD-- see by GI with following remarks - Hep serologies, TSPOT and TPMT ordered - Outpatient follow up will be set up for ? Crohns. Please call back for any questions or concerns.--Dr Grajeda #Tachycardia--related to above and is resolved #Alcohol abuse -Consumes 2-3 hard alcohol beverages daily, last drink per patient 5 prior to admission. Has shown no s/x of withdrawal and unlikely to withdraw at this time. No need to check CIWA #Benzo use -no benzos in 10 months (prescribed short-term Valium for pain) #Elevated BP--presently normal hypokalemia -repleted and resolved. Need for hospitalization: pelvic abcess -IR drainage and placement of a pigtail catheter in her pelvic abscess,on iv antibiotics ,suregry will plan dispo according to reponse to treatment over weekend. further plan defer to primary team , will sign off -please call if any questions. Quality Stroke Does the patient have a stroke diagnosis?: No VTE Prior VTE?: No VTE Risk Level:: Surgical - moderate VTE Device Contraindication: N/A - Device Ordered VTE Drug Contraindication: N/A - Med Ordered
--- NOTE | 2022-04-06 10:07 | PC.NURSE ---
pt complaint of abdominal pain and nausea. medicated with dilaudid and zofran per jul.
[2022-04-06] MEDS: cefTRIAXone sodium 2 GM in 0.9 % Sodium Chloride 50 ML IV (13:46)
--- NOTE | 2022-04-06 14:32 | P.PNGS_ITS ---
Subjective Subjective Date of Service: 04/06/22 Interval history: patient feels really good in no new issues. She is resting this afternoon but says that she was walking earlier. She denies any fevers or chills is tolerating p.o. diet having bowel movements passing gas abdomen feels less tender drain is in pain out too much. Her white count is normal Physical Exam Vital Signs: Vital Signs: Last Vital Signs Temp 96.1 F L 04/06/22 10:57 Pulse 95 04/06/22 10:57 Resp 17 04/06/22 14:21 BP 109/55 L 04/06/22 10:57 Pulse Ox 98 04/06/22 10:57 O2 Del Method 04/06/22 10:57 BMI result Body Mass Index 29.2 Const: General: cooperative, healthy appearing, comfortable and no acute distress Orientation/consciousness: patient oriented x3 Resp: Effort & Inspection: normal respiratory effort Auscultation: clear to auscultation bilaterally Cardio: Rate: regular rate Rhythm: regular rhythm GI: Other: abdomen is little distended but soft nontender active bowel sounds and drainag e on the left side is not putting out any Skin: Other: mid abdomen is a little irritation of the skin near the drain site but there is no drainage and there is a light scab that has formed Neuro: General: patient oriented x3 Psych: Appearance: grossly normal Mental Status: mental status grossly normal Affect: normal affect Attitude: cooperative Thought process: Normal thought process present Objective Data Active Medications Docusate Sodium (Docusate Sodium 100 Mg Capsule) 100 mg PO BID [facility] Last Admin: 04/06/22 08:58 Dose: 100 mg Documented By: CHRIS Duloxetine HCl (Duloxetine Hcl 60 Mg Capsule.) 60 mg PO BEDTIME [facility] Last Admin: 04/05/22 20:07 Dose: 60 mg Documented By: KIP Hydromorphone HCl (Hydromorphone Hcl 0.5 Mg/0.5 Ml Syringe) 0.5 mg IVPUSH Q2H PRN; Protocol PRN Reason: Pain, Severe (Pain Scale 7-10) Last Admin: 04/06/22 14:21 Dose: 0.5 mg Documented By: ROMIEEMA Promethazine HCl 12.5 mg/ (Sodium Chloride) 50.5 mls @ 202 mls/hr IV Q6H PRN PRN Reason: Vomiting Last Infusion: 04/06/22 14:20 Dose: 0 mls/hr Documented By: [email or web address].COTEMA Metronidazole (Flagyl) 500 mg in 100 mls @ 100 mls/hr IV Q8H [facility] Last Infusion: 04/06/22 10:01 Dose: 0 mls/hr Documented By: DESIREE.COTEMA Ceftriaxone Sodium 2 gm/ (Sodium Chloride) 50 mls @ 100 mls/hr IV Q24H [facility] Last Infusion: 04/06/22 14:19 Dose: 0 mls/hr Documented By: DESIREE.COTEMA Ondansetron HCl (Ondansetron Hcl 4 Mg/2 Ml Vial) 4 mg IVPUSH Q6H PRN PRN Reason: Nausea and Vomiting Last Admin: 04/06/22 08:58 Dose: 4 mg Documented By: COTEMA Sodium Chloride (0.9 % Sodium Chloride Flush 3 Ml Syringe) 3 ml IVFLUSH QSNDFT [facility] Last Admin: 04/06/22 07:20 Dose: Not Given Documented By: COTEMA Non-Admin Reason: IV Running Sodium Chloride (0.9 % Sodium Chloride Flush 3 Ml Syringe) 3 ml [facility]USH [facility] Last Admin: 04/06/22 07:20 Dose: Not Given Documented By: COTEMA Non-Admin Reason: IV Running Labs CBC & Chem 7: 04/05/22 06:13 04/06/22 07:56 Microbiology Microbiology Results: Microbiology 04/04/22 10:00 Gram Stain - Final Peritoneal Fluid Routine Culture - Final No growth after 2 days Anaerobic Culture - Preliminary No growth to date. Procedures Date of Service Date of Service: 04/06/22 Progress Note: A&P Assessment and plan (1) Ruptured appendix: Status: Acute Assessment and Plan: the patient is a 56-year-old female who has most likely ruptured appendicitis with intra-abdominal abscess that had been drained 3 times but now finally really looking quite good. White count is almost close to normal she currently is on IV antibiotic she has been ambulating eating and drinking and having better bowel movements. Plan to continue as above. Drains on the left side does not seem to be Putting out much. Time Spent With Patient Time: Total time spent is greater than 50% in coordination of care (as documented) at patient's floor/unit and/or counseling patient: Quality Stroke Does the patient have a stroke diagnosis?: No VTE Prior VTE?: No VTE Risk Level:: Surgical - moderate VTE Device Contraindication: N/A - Device Ordered VTE Drug Contraindication: N/A - Med Ordered
[2022-04-06] MEDS: Bacitracin Oint 0.9 GM PACKET 1 APPL TOPICAL (18:03)
[2022-04-06] MEDS: DULoxetine HCl 60 MG CAPSULE.DR PO (20:18)
[2022-04-06] MEDS: 0.9 % Sodium Chloride Flush 3 ML SYRINGE IVFLUSH ×2 (20:18→23:24)
[2022-04-07] VITALS (9 sets, daily range): BP systolic 107–130; BP diastolic 63–74; PULSE 80–104; RESP 16–18; TEMP 36.3–36.9; O2SAT 93–97
[2022-04-07] MEDS: HYDROmorphone HCl 0.5 MG/0.5 ML SYRINGE IVPUSH ×8 (02:03→22:19)
[2022-04-07] MEDS: ondansetron HCL 4 MG/2 ML VIAL IVPUSH ×2 (06:44→13:32)
[2022-04-07] MEDS: 0.9 % Sodium Chloride Flush 3 ML SYRINGE IVFLUSH ×2 (09:18→16:28)
[2022-04-07] MEDS: Docusate Sodium 100 MG CAPSULE PO ×2 (09:19→19:45)
[2022-04-07] MEDS: metroNIDAZOLE/NS 500 MG/100 ML PIGGYBACK 100 MG IV ×2 (09:19→16:27)
[2022-04-07 09:54] LABS: MANUAL DIFF FLAG NO
[2022-04-07 09:58] LABS: Basophils Absolute Auto 0.1 X10*3/uL (0.0-0.2); Basophils Percent Auto 0.6 % (0-2); Eosinophils Absolute Auto 0.1 X10*3/uL (0.0-0.4); Hematocrit 31.6 % (37.0-47.0); Hemoglobin 10.3 g/dl (12.0-16.0); Imm Gran Abs Auto 0.16 X10*3/uL (0.00-0.03); Imm Gran Pct Auto 1.5 % (0.0-0.4); Lymphocytes Absolute Auto 1.3 X10*3/uL (1.2-4.9); Lymphocytes Percent Auto 12.1 % (20-40); Mean Corpuscular HGB Conc 32.6 g/dl (31.0-35.0); Mean Corpuscular Hemoglobin 29.3 pg (27.0-33.0); Mean Corpuscular Volume 89.8 fL (80.0-98.0); Mean Platelet Volume 8.8 fL (9.4-12.3); Monocytes Percent Auto 9.6 % (2-11); Neutrophils Absolute Auto 8.2 x10*3/uL (2.0-8.3); Neutrophils Percent Auto 75.2 % (45-73); Platelet Count 430 X10*3/uL (160-400); Red Blood Count 3.52 X10*6/uL (4.20-5.50); Red Cell Distribution Width 13.2 % (11.0-16.0); White Blood Count 10.9 X10*3/uL (4.8-10.8)
--- NOTE | 2022-04-07 11:49 | P.PNGS_ITS ---
Subjective Subjective Date of Service: 04/07/22 Patient reports: no new complaints, feels better, tolerating a regular diet, flatus and bowel movement Interval history: The patient reports interval improvement and denies any new complaints such as chest pain, difficulty breathing or shortness of breath. She has been tolerating her diet but is hopeful to have her pelvic drain removed. Physical Exam Vital Signs: Vital Signs: Last Vital Signs Temp 98.5 F 04/07/22 11:46 Pulse 88 04/07/22 11:46 Resp 18 04/07/22 11:46 BP 120/66 04/07/22 11:46 Pulse Ox 94 04/07/22 11:46 O2 Del Method 04/07/22 11:46 BMI result Body Mass Index 29.2 On exam, she is nontoxic. Sclera remain anicteric Abdomen remains soft with no tenderness Scant serous drainage is present in the drainage bag Objective Data Active Medications Bacitracin (Bacitracin Oint 0.9 Gm Packet) 1 appl TOPICAL DAILY@1700 [facility]; Protocol Last Admin: 04/06/22 18:03 Dose: 1 appl Documented By: COTEMA Docusate Sodium (Docusate Sodium 100 Mg Capsule) 100 mg PO BID [facility] Last Admin: 04/07/22 09:19 Dose: 100 mg Documented By: THO Duloxetine HCl (Duloxetine Hcl 60 Mg Capsule.Dr) 60 mg PO BEDTIME [facility] Last Admin: 04/06/22 20:18 Dose: 60 mg Documented By: MALLIKA Hydromorphone HCl (Hydromorphone Hcl 0.5 Mg/0.5 Ml Syringe) 0.5 mg IVPUSH Q2H PRN; Protocol PRN Reason: Pain, Severe (Pain Scale 7-10) Last Admin: 04/07/22 09:18 Dose: 0.5 mg Documented By: THO Promethazine HCl 12.5 mg/ (Sodium Chloride) 50.5 mls @ 202 mls/hr IV Q6H PRN PRN Reason: Vomiting Last Infusion: 04/06/22 20:55 Dose: 0 mls/hr Documented By: MALLIKA Metronidazole (Flagyl) 500 mg in 100 mls @ 100 mls/hr IV Q8H [facility] Last Infusion: 04/07/22 10:22 Dose: 0 mls/hr Documented By: THO Ceftriaxone Sodium 2 gm/ (Sodium Chloride) 50 mls @ 100 mls/hr IV Q24H [facility] Last Infusion: 04/06/22 14:19 Dose: 0 mls/hr Documented By: COTEMA Ondansetron HCl (Ondansetron Hcl 4 Mg/2 Ml Vial) 4 mg IVPUSH Q6H PRN PRN Reason: Nausea and Vomiting Last Admin: 04/07/22 06:44 Dose: 4 mg Documented By: MALLIKA Sodium Chloride (0.9 % Sodium Chloride Flush 3 Ml Syringe) 3 ml IVFLUSH [facility] Last Admin: 04/07/22 09:18 Dose: 3 ml Documented By: THO Sodium Chloride (0.9 % Sodium Chloride Flush 3 Ml Syringe) 3 ml IVFLUSH [facility] Last Admin: 04/07/22 09:19 Dose: Not Given Documented By: THO Non-Admin Reason: Duplicate Order Labs CBC & Chem 7: 04/07/22 09:40 04/06/22 07:56 Labs: Laboratory Results - last 24 hr 04/07/22 09:40 MCV 89.8 MCH 29.3 MCHC 32.6 RDW 13.2 Plt Count 430 H MPV 8.8 L Immature Gran % (Auto) 1.5 H Neut % (Auto) 75.2 H Lymph % (Auto) 12.1 L [place] % (Auto) 9.6 Eos % (Auto) 1.0 Baso % (Auto) 0.6 Lymph # (Auto) 1.3 [place] # (Auto) 1.0 Eos # (Auto) 0.1 Baso # (Auto) 0.1 Abs Immat Gran (auto) 0.16 H Absolute Neuts (auto) 8.2 Absolute Nucleated RBC 0.000 Nucleated RBC % (auto) 0.0 Microbiology Microbiology Results: Microbiology 04/04/22 10:00 Gram Stain - Final Peritoneal Fluid Routine Culture - Final No growth after 2 days Anaerobic Culture - Preliminary No growth to date. Procedures Date of Service Date of Service: 04/07/22 Progress Note: A&P Assessment and plan (1) Abnormal CT of the abdomen: Status: Acute (2) Ruptured appendix: Status: Acute (3) Ileitis, regional: Status: Acute (4) E. coli sepsis: Status: Acute (5) Leucocytosis: Status: Acute (6) Colitis: Status: Acute Plan Clinically, the patient is making progress and her white blood cell count continues to trend down. Will reassess in the morning. Continue present management for now. Time Spent With Patient Time: Total time spent is greater than 50% in coordination of care (as documented) at patient's floor/unit and/or counseling patient: Quality Stroke Does the patient have a stroke diagnosis?: No VTE Prior VTE?: No VTE Risk Level:: Surgical - moderate VTE Device Contraindication: N/A - Device Ordered VTE Drug Contraindication: N/A - Med Ordered
--- NOTE | 2022-04-07 13:08 | MHC.CLN ---
F/U PO INTAKE VARIABLE RANGING FROM 25-100% DIET RX: REGULAR-APPROPRIATE PT PREVIOUSLY ADVISED TO FOLLOW HIGH PROTEIN DIET S/P SX PT RECEIVING ENSURE CLEAR TID TO INCREASE KCALS SUPP PROVIDES 720KCALS, 24G PROTEIN WITH 100% ACCEPTANCE CONTINUE TO MONITOR PO INTAKE CLOSELY
[2022-04-07] MEDS: cefTRIAXone sodium 2 GM in 0.9 % Sodium Chloride 50 ML IV (13:32)
[2022-04-07] MEDS: Bacitracin Oint 0.9 GM PACKET 1 APPL TOPICAL (16:27)
[2022-04-07] MEDS: DULoxetine HCl 60 MG CAPSULE.DR PO (19:45)
[2022-04-08] VITALS: BP 121/73; PULSE 100; RESP 17; TEMP 36.5; O2SAT 92
[2022-04-08] MEDS: 0.9 % Sodium Chloride Flush 3 ML SYRINGE IVFLUSH ×2 (00:25→09:10)
[2022-04-08] MEDS: metroNIDAZOLE/NS 500 MG/100 ML PIGGYBACK 100 MG IV ×2 (00:25→09:09)
[2022-04-08] MEDS: HYDROmorphone HCl 0.5 MG/0.5 ML SYRINGE IVPUSH ×4 (00:26→09:10)
[2022-04-08 03:27] VITALS: BP 130/72; PULSE 80; RESP 17; TEMP 36.1; O2SAT 93
[2022-04-08 06:36] LABS: MANUAL DIFF FLAG NO
[2022-04-08 06:40] LABS: Basophils Absolute Auto 0.1 X10*3/uL (0.0-0.2); Basophils Percent Auto 0.5 % (0-2); Eosinophils Absolute Auto 0.1 X10*3/uL (0.0-0.4); Eosinophils Percent Auto 1.3 % (0-4); Hematocrit 30.9 % (37.0-47.0); Imm Gran Abs Auto 0.11 X10*3/uL (0.00-0.03); Imm Gran Pct Auto 1.2 % (0.0-0.4); Lymphocytes Absolute Auto 1.5 X10*3/uL (1.2-4.9); Lymphocytes Percent Auto 15.5 % (20-40); Mean Corpuscular HGB Conc 32.4 g/dl (31.0-35.0); Mean Corpuscular Hemoglobin 29.2 pg (27.0-33.0); Mean Corpuscular Volume 90.4 fL (80.0-98.0); Monocytes Absolute Auto 0.8 X10*3/uL (0.1-1.2); Monocytes Percent Auto 8.6 % (2-11); Neutrophils Absolute Auto 6.9 x10*3/uL (2.0-8.3); Neutrophils Percent Auto 72.9 % (45-73); Platelet Count 428 X10*3/uL (160-400); Red Blood Count 3.42 X10*6/uL (4.20-5.50); White Blood Count 9.4 X10*3/uL (4.8-10.8)
--- NOTE | 2022-04-08 06:48 | PM.PNGS ---
Subjective Subjective Date of Service: 04/08/22 Patient reports: no new complaints, feels better, tolerating a regular diet, voiding w/o difficulty, flatus and bowel movement Interval history: The patient requested a conference call with her Al. She reports that she is feeling very good and is interested and her white blood cell count since we discussed that a normal white count would lead to discharge on p.o. antibiotics. I disclose that her white count is normal and she is very excited. She otherwise denies any chest pain, difficulty breathing, shortness of breath or lower extremity pain or swelling. Physical Exam Vital Signs: Vital Signs: Last Vital Signs Temp 97 F 04/08/22 03:27 Pulse 80 04/08/22 03:27 Resp 17 04/08/22 03:27 BP 130/72 04/08/22 03:27 Pulse Ox 93 04/08/22 03:27 O2 Del Method 04/08/22 03:27 BMI result Body Mass Index 29.2 Abdomen is soft and nontender. Some tympany is noted but no peritoneal sign. Overall, she is markedly improved. Objective Data Active Medications Bacitracin (Bacitracin Oint 0.9 Gm Packet) 1 appl TOPICAL DAILY@1700 [facility]; Protocol Last Admin: 04/07/22 16:27 Dose: 1 appl Documented By: LYSAsher Docusate Sodium (Docusate Sodium 100 Mg Capsule) 100 mg PO BID [facility] Last Admin: 04/07/22 19:45 Dose: 100 mg Documented By: ELÍAS Duloxetine HCl (Duloxetine Hcl 60 Mg Capsule.) 60 mg PO BEDTIME [facility] Last Admin: 04/07/22 19:45 Dose: 60 mg Documented By: ELÍAS Hydromorphone HCl (Hydromorphone Hcl 0.5 Mg/0.5 Ml Syringe) 0.5 mg IVPUSH Q2H PRN; Protocol PRN Reason: Pain, Severe (Pain Scale 7-10) Last Admin: 04/08/22 04:56 Dose: 0.5 mg Documented By: JUAN ALBERTO Promethazine HCl 12.5 mg/ (Sodium Chloride) 50.5 mls @ 202 mls/hr IV Q6H PRN PRN Reason: Vomiting Last Infusion: 04/06/22 20:55 Dose: 0 mls/hr Documented By: MALLIKA Metronidazole (Flagyl) 500 mg in 100 mls @ 100 mls/hr IV Q8H [facility] Last Infusion: 04/08/22 01:25 Dose: 0 mls/hr Documented By: JUAN ALBERTO Ceftriaxone Sodium 2 gm/ (Sodium Chloride) 50 mls @ 100 mls/hr IV Q24H [facility] Last Infusion: 04/07/22 14:17 Dose: 0 mls/hr Documented By: THO Ondansetron HCl (Ondansetron Hcl 4 Mg/2 Ml Vial) 4 mg IVPUSH Q6H PRN PRN Reason: Nausea and Vomiting Last Admin: 04/07/22 13:32 Dose: 4 mg Documented By: THO Sodium Chloride (0.9 % Sodium Chloride Flush 3 Ml Syringe) [facility] Last Admin: 04/08/22 00:25 Dose: 3 ml Documented By: JUAN ALBERTO Sodium Chloride (0.9 % Sodium Chloride Flush 3 Ml Syringe) 3 ml IVFLUSH [facility] Last Admin: 04/08/22 00:25 Dose: Not Given Documented By: JUAN ALBERTO Non-Admin Reason: duplicate order Labs CBC & Chem 7: 04/08/22 05:54 04/08/22 05:54 Labs: Laboratory Results - last 24 hr 04/07/22 04/08/22 09:40 05:54 MCV 89.8 90.4 MCH 29.3 29.2 MCHC 32.6 32.4 RDW 13.2 13.0 Plt Count 430 H 428 H MPV 8.8 L 9.0 L Immature Gran % (Auto) 1.5 H 1.2 H Neut % (Auto) 75.2 H 72.9 Lymph % (Auto) 12.1 L 15.5 L [place] % (Auto) 9.6 8.6 Eos % (Auto) 1.0 1.3 Baso % (Auto) 0.6 0.5 Lymph # (Auto) 1.3 1.5 [place] # (Auto) 1.0 0.8 Eos # (Auto) 0.1 0.1 Baso # (Auto) 0.1 0.1 Abs Immat Gran (auto) 0.16 H 0.11 H Absolute Neuts (auto) 8.2 6.9 Absolute Nucleated RBC 0.000 0.000 Nucleated RBC % (auto) 0.0 0.0 Microbiology Microbiology Results: Microbiology 04/04/22 10:00 Gram Stain - Final Peritoneal Fluid Routine Culture - Final No growth after 2 days Anaerobic Culture - Preliminary No growth to date. Procedures Date of Service Date of Service: 04/08/22 Progress Note: A&P Assessment and plan (1) Abnormal CT of the abdomen: Status: Acute (2) Ileitis, regional: Status: Acute (3) E. coli sepsis: Status: Acute (4) Leucocytosis: Status: Acute (5) Ruptured appendix: Status: Acute (6) Colitis: Status: Acute Plan Will review culture and sensitivity results with Infectious Diseases regarding recommendations for outpatient p.o. antibiotic and duration. Per communication with ID, will discharge on Augmentin, 875 b.i.d. for 1 week Patient will follow-up with me in a week and report to the emergency room for increasing abdominal pain, chest pain, difficulty breathing or shortness of breath. Plan was reviewed with the patient and her who participated by conference call. Questions seemed to be satisfactorily answered. Will arrange GI follow-up with Dr. Sheldon on an outpatient basis since the patient will need a colonoscopy and biopsies of her terminal ileum given the CT appearance of Crohn's disease. Time Spent With Patient Time: Total time spent is greater than 50% in coordination of care (as documented) at patient's floor/unit and/or counseling patient: Quality Stroke Does the patient have a stroke diagnosis?: No VTE Prior VTE?: No VTE Risk Level:: Surgical - moderate VTE Device Contraindication: N/A - Device Ordered VTE Drug Contraindication: N/A - Med Ordered
[2022-04-08 07:04] LABS: Anion Gap 15 (12-20); Blood Urea Nitrogen 2 mg/dL (9-16); Calcium 7.8 mg/dL (8.4-10.2); Carbon Dioxide 27 mmol/L (22-29); Chloride 101 mmol/L (96-108); Creatinine Clr Calc Pharmacy 112.7; Estimated Glomerular Filt Rate > 60; Glucose Random 94 mg/dL (60-115); Potassium 3.5 mmol/L (3.3-5.1); Sodium 139 mmol/L (135-145)
[2022-04-08 07:56] VITALS: BP 121/73; PULSE 81; RESP 18; TEMP 36.7; O2SAT 97
--- NOTE | 2022-04-08 08:04 | PM.DS ---
DS: Providers Provider Date of Service: 04/08/22 Date of admission: 03/25/22 12:57 Primary care physician: Pipo Tejeda MD Consults: 03/25/22 12:16 Consult to Gastroenterology Stat Consulting Provider: Nicci Sheldon Reason for consultation: Evaluate for possible Crohn's disease Has provider been notified: Yes 03/25/22 12:54 Consult to Hospitalist Routine Consulting Provider: Hospitalist Reason For Exam: ETOH & benzo use; medical help 03/26/22 07:56 Consult to Infectious Diseases Routine Consulting Provider: China Timmons Reason for consultation: intraabdominal sepsis, s/p IR. Cultures/sensitivities pending DS: Diagnosis Discharge Diagnosis (1) Abnormal CT of the abdomen: Status: Acute (2) Ileitis, regional: Status: Acute (3) E. coli sepsis: Status: Acute (4) Leucocytosis: Status: Acute (5) Ruptured appendix: Status: Acute (6) Colitis: Status: Acute DS: Summary Hospital Course Hospital Course: The patient is a 56-year-old woman who presented with several days, almost a week of abdominal pain and was noted to have an abnormal CT with a large pelvic abscess that was presumed to be due to a perforated appendix but a significant length of terminal ileum demonstrated findings consistent with Crohn's disease. The patient was admitted, hydrated due to severe dehydration and hypokalemia and underwent percutaneous drainage. She had some interval improvement but due to persistent white count had additional IR drainage in place of operative intervention given the unclear etiology of the patient's pelvic abscess. Consultation to GI and Infectious Diseases was obtained. Patient had antibiotics titrated to culture and sensitivities. By the time of discharge, she was tolerating a diet, afebrile for several days, had bowel function and improvement in her abdominal pain. Her white count had normalized and she was discharged on Zosyn. The importance of follow-up with me & Gastroenterology for a colonoscopy with biopsies to exclude Crohn's disease was discussed and apparently understood. Overall condition at time of discharge is improved. Status at Discharge Functional status at discharge: independent ambulation Overall status at discharge: patient is back to baseline Time Spent with Patient Time attestation: Total time spent providing and/or coordinating discharge services: Discharge coordination time: Greater than 30 minutes Specific discharge activities: Coordinating follow-up care and prescriptions; patient Education and answering questions of patient and Quality: Safe Use of Opioids Does Pt have an Active Cancer Diagnosis on the Problem List?: No Quality: Stroke Does the patient have a stroke diagnosis?: No Physical Exam Vital Signs: Vital Signs: Last Vital Signs Temp 98.1 F 04/08/22 07:56 Pulse 81 04/08/22 07:56 Resp 18 04/08/22 07:56 BP 121/73 04/08/22 07:56 Pulse Ox 97 04/08/22 07:56 O2 Del Method 04/08/22 07:56 BMI result Body Mass Index 29.2 DS: Data Data Completed and Pending Labs on day of discharge: Laboratory Results - last 24 hr 04/07/22 04/08/22 04/08/22 09:40 05:54 05:54 WBC 10.9 H 9.4 RBC 3.52 L 3.42 L Hgb 10.3 L 10.0 L Hct 31.6 L 30.9 L MCV 89.8 90.4 MCH 29.3 29.2 MCHC 32.6 32.4 RDW 13.2 13.0 Plt Count 430 H 428 H MPV 8.8 L 9.0 L Immature Gran % (Auto) 1.5 H 1.2 H Neut % (Auto) 75.2 H 72.9 Lymph % (Auto) 12.1 L 15.5 L [place] % (Auto) 9.6 8.6 Eos % (Auto) 1.0 1.3 Baso % (Auto) 0.6 0.5 Lymph # (Auto) 1.3 1.5 [place] # (Auto) 1.0 0.8 Eos # (Auto) 0.1 0.1 Baso # (Auto) 0.1 0.1 Abs Immat Gran (auto) 0.16 H 0.11 H Absolute Neuts (auto) 8.2 6.9 Absolute Nucleated RBC 0.000 0.000 Nucleated RBC % (auto) 0.0 0.0 Sodium 139 Potassium 3.5 Chloride 101 Carbon Dioxide 27 Anion Gap 15 BUN 2 L Creatinine 0.54 Estim Creat Clear Calc 112.7 Estimated GFR > 60 Random Glucose 94 Calcium 7.8 L Preliminary micro results at discharge 04/04/22 10:00 Anaerobic Culture - Preliminary Peritoneal Fluid No growth to date. Discharge Plan Discharge Anticipated Discharge Date/Time: 04/08/22 07:59 Patient Disposition: Home, Self-Care Discharge Diagnosis: Pelvic abscess secondary to perforated appendicitis versus Crohn's disease Referrals: Pipo Tejeda MD [Primary Care Provider] - 1 Week Raul Bryan MD [Physician] - 1 Week Nicci Sheldon MD [Physician] - 1 Week Discharge Medications: New amoxicillin-pot clavulanate 875-125 mg Tablet 875 mg PO Q12H 7 Days Qty: 13 0RF oxycodone 5 mg tablet 5 mg PO Q4H PRN (Reason: pain) Qty: 10 0RF Rx Instructions: Partial Fill upon patient request. Continued duloxetine 60 mg capsule,delayed release(DR/EC) 1 cap PO DAILY Discharge Orders: Discharge Order (Routine); Ordered 04/08/22 Ordered By: Raul Bryan Diet: Regular diet Activity on Discharge: As tolerated Stand Alone Forms: Patient Portal Discharge page Care Plan Goals: Allow adequate healing and outpatient workup to assess for Crohn's disease Health Concerns: Possible inflammatory bowel disease Plan of Treatment: Allow adequate healing an outpatient workup to assess for Crohn's disease Assessment: Pelvic abscess, resolved. Possible appendicitis versus Crohn's disease perforation
--- NOTE | 2022-04-08 08:21 | MHC.CM.PN ---
PATIENT IS DISCHARGED HOME - SELF CARE RN AWARE OF PLAN.
[2022-04-08] MEDS: Docusate Sodium 100 MG CAPSULE PO (09:09)
--- NOTE | 2022-04-08 11:11 | P.PNIM_ITS ---
Subjective Subjective Date of Service: 04/08/22 Interval History: f/u on med consult for ruptured apendicitis, sesis resovled, doing well, eating drains out Review of Systems no fever abd pain Constitutional Constitutional: Reports as per HPI Physical Exam Vital Signs: Vital Signs: Last Vital Signs Temp 98.1 F 04/08/22 07:56 Pulse 81 04/08/22 07:56 Resp 18 04/08/22 07:56 BP 121/73 04/08/22 07:56 Pulse Ox 97 04/08/22 07:56 O2 Del Method 04/08/22 07:56 BMI result Body Mass Index 29.2 Const: Other: General: AO X 3, no acute distress Resp: CTA bilateral CVS: S1,S2,RRR GI: +BS, NT, no distention Skin: No rash Neuro: motor grossly intact Psych: appropriate affect Objective Data Active Medications Bacitracin (Bacitracin Oint 0.9 Gm Packet) 1 appl TOPICAL DAILY@1700 MATTHEW; Protocol Last Admin: 04/07/22 16:27 Dose: 1 appl Documented By: THO Docusate Sodium (Docusate Sodium 100 Mg Capsule) 100 mg PO BID [facility] Last Admin: 04/08/22 09:09 Dose: 100 mg Documented By: THO Duloxetine HCl (Duloxetine Hcl 60 Mg Capsule.Dr) 60 mg PO BEDTIME [facility] Last Admin: 04/07/22 19:45 Dose: 60 mg Documented By: ELÍAS Hydromorphone HCl (Hydromorphone Hcl 0.5 Mg/0.5 Ml Syringe) 0.5 mg IVPUSH Q2H PRN; Protocol PRN Reason: Pain, Severe (Pain Scale 7-10) Last Admin: 04/08/22 09:10 Dose: 0.5 mg Documented By: THO Promethazine HCl 12.5 mg/ (Sodium Chloride) 50.5 mls @ 202 mls/hr IV Q6H PRN PRN Reason: Vomiting Last Infusion: 04/06/22 20:55 Dose: 0 mls/hr Documented By: MALLIKA Metronidazole (Flagyl) 500 mg in 100 mls @ 100 mls/hr IV Q8H [facility] Last Infusion: 04/08/22 10:19 Dose: 0 mls/hr Documented By: THO Ceftriaxone Sodium 2 gm/ (Sodium Chloride) 50 mls @ 100 mls/hr IV Q24H [facility] Last Infusion: 04/07/22 14:17 Dose: 0 mls/hr Documented By: THO Ondansetron HCl (Ondansetron Hcl 4 Mg/2 Ml Vial) 4 mg IVPUSH Q6H PRN PRN Reason: Nausea and Vomiting Last Admin: 04/07/22 13:32 Dose: 4 mg Documented By: THO Sodium Chloride (0.9 % Sodium Chloride Flush 3 Ml Syringe) 3 ml IVFLUSH [facility] Last Admin: 04/08/22 09:10 Dose: 3 ml Documented By: THO Sodium Chloride (0.9 % Sodium Chloride Flush 3 Ml Syringe) 3 ml IVFLUSH [facility] Last Admin: 04/08/22 09:10 Dose: Not Given Documented By: THO Non-Admin Reason: Duplicate Order Labs CBC & Chem 7: 04/08/22 05:54 04/08/22 05:54 Labs: Laboratory Results - last 24 hr 04/08/22 04/08/22 05:54 05:54 MCV 90.4 MCH 29.2 MCHC 32.4 RDW 13.0 Plt Count 428 H MPV 9.0 L Immature Gran % (Auto) 1.2 H Neut % (Auto) 72.9 Lymph % (Auto) 15.5 L [place] % (Auto) 8.6 Eos % (Auto) 1.3 Baso % (Auto) 0.5 Lymph # (Auto) 1.5 [place] # (Auto) 0.8 Eos # (Auto) 0.1 Baso # (Auto) 0.1 Abs Immat Gran (auto) 0.11 H Absolute Neuts (auto) 6.9 Absolute Nucleated RBC 0.000 Nucleated RBC % (auto) 0.0 Anion Gap 15 Estim Creat Clear Calc 112.7 Estimated GFR > 60 Random Glucose 94 Calcium 7.8 L Microbiology Microbiology Results: Microbiology 04/04/22 10:00 Gram Stain - Final Peritoneal Fluid Routine Culture - Final No growth after 2 days Anaerobic Culture - Preliminary No growth to date. Assessment and Plan (1) Acute hypokalemia: Status: Acute (2) Ileitis, regional: Status: Acute (3) Ruptured appendix: Status: Acute Plan 56 year old female with history of fibromyalgia, anxiety, alcohol abuse, and former smoker with 15 pack year history quit 30 years ago admitted to general surgery for appendicitis with rupture with medical consult placed for management of possible wtihdrawal. # Sepsis d/t Ruptured appendix/petionitis s/p d successful percutaneous drainage, Initially was on Broad spec Abx (Zosyn),? Culture showed E. coli that is sensitive so was changed to Ceftriaoxone 2 grams daily, additionally culture now showing B. frlag and ? Flagyl added on 03/29 with good effect, WBC now normal. Further management as outlined in surgical note #? IBD-- see by GI with following remarks - Hep serologies, TSPOT and TPMT ordered - Outpatient follow up will be set up for ? Crohns. Please call back for any questions or concerns.--Dr Grajeda #Tachycardia--related to sepsis and is resolved #Alcohol abuse -Consumes 2-3 hard alcohol beverages daily, last drink per patient 5 prior to admission. Has shown no s/x of withdrawal and unlikely to withdraw at this time. No need to check CIWA #Benzo use -no benzos in 10 months (prescribed short-term Valium for pain) #Elevated BP--presently normal #hypokalemia -repleted and resolved. medically no acute issues: DC plan per surgery Quality Stroke Does the patient have a stroke diagnosis?: No VTE Prior VTE?: No VTE Risk Level:: Surgical - moderate VTE Device Contraindication: N/A - Device Ordered VTE Drug Contraindication: N/A - Med Ordered
== END 2022-04-08 11:46 | disposition home or self-care (01) | DRG 720 ==
LOC: HO.ED 12:11 → HO.EDOVER 13:09 → HO.S3 21:18
PROVIDERS: Internal Medicine; Physician Assistant Medical; Radiology Diagnostic Radiology; Surgery; Admitting Provider Surgery; Emergency Provider Emergency Medicine Emergency Medical Services; PCP Internal Medicine; Visit Provider Surgery
PROC: 0W9J30Z Drainage of Pelvic Cavity with Drainage Device, Percutaneous Approach (ICD-10-PCS; principal; 2022-03-25 15:00)
PROC: 0W9J3ZZ Drainage of Pelvic Cavity, Percutaneous Approach (ICD-10-PCS; principal; 2022-04-04 09:00)
DX: A41.51 Sepsis due to Escherichia coli [E. coli] (principal); K35.33 Acute appendicitis with perforation, localized peritonitis, and gangrene, with abscess; E87.6 Hypokalemia; K50.90 Crohn's disease, unspecified, without complications; F10.10 Alcohol abuse, uncomplicated; F41.9 Anxiety disorder, unspecified; K52.9 Noninfective gastroenteritis and colitis, unspecified; G89.29 Other chronic pain; Z20.822 Contact with and (suspected) exposure to COVID-19; Z79.899 Other long term (current) drug therapy
CPT/HCPCS: 0241U; 10160; 36415; 74177; 75989; 77012; 80048; 80053; 80307; 81001; 82077; 82657; 83605; 83690; 83735; 84132; 85007; 85025; 85027; 85610; 85730; 86481; 86704; 86706; 86708; 86803; 87070; 87073; 87076; 87077; 87147; 87186; 87205; 87340; 87635; 93005; 99152; 99153; 99285; C1729; C1758; C1894; J0696; J1170; J1885; J2270; J2405; J2543; J2550; Q9967

== ENCOUNTER 2022-04-15 15:36 | Outpatient (REF) | payer BC, SELFPAY ==
[2022-04-15 15:46] LABS: MANUAL DIFF FLAG NO
[2022-04-15 16:54] LABS: Basophils Absolute Auto 0.1 X10*3/uL (0.0-0.2); Basophils Percent Auto 1.1 % (0-2); Eosinophils Absolute Auto 0.2 X10*3/uL (0.0-0.4); Eosinophils Percent Auto 2.7 % (0-4); Hematocrit 36.1 % (37.0-47.0); Hemoglobin 11.6 g/dl (12.0-16.0); Imm Gran Abs Auto 0.06 X10*3/uL (0.00-0.03); Imm Gran Pct Auto 0.7 % (0.0-0.4); Lymphocytes Absolute Auto 2.1 X10*3/uL (1.2-4.9); Lymphocytes Percent Auto 23.2 % (20-40); Mean Corpuscular HGB Conc 32.1 g/dl (31.0-35.0); Mean Corpuscular Hemoglobin 29.2 pg (27.0-33.0); Mean Corpuscular Volume 90.9 fL (80.0-98.0); Mean Platelet Volume 9.4 fL (9.4-12.3); Monocytes Absolute Auto 0.8 X10*3/uL (0.1-1.2); Monocytes Percent Auto 9.2 % (2-11); Neutrophils Absolute Auto 5.7 x10*3/uL (2.0-8.3); Neutrophils Percent Auto 63.1 % (45-73); Platelet Count 409 X10*3/uL (160-400); Red Blood Count 3.97 X10*6/uL (4.20-5.50); Red Cell Distribution Width 13.2 % (11.0-16.0)
[2022-04-15 17:16] LABS: Alanine Aminotransferase 24 U/L (0-31); Albumin Level 3.7 g/dL (3.5-5.0); Alkaline Phosphatase 49 U/L (39-117); Anion Gap 13 (12-20); Aspartate Amino Transferase 29 U/L (5-31); Bilirubin Total 0.2 mg/dL (0.0-1.0); Blood Urea Nitrogen 12 mg/dL (9-16); Calcium 9.1 mg/dL (8.4-10.2); Carbon Dioxide 29 mmol/L (22-29); Chloride 103 mmol/L (96-108); Estimated Glomerular Filt Rate > 60; Glucose Random 98 mg/dL (60-115); Potassium 4.4 mmol/L (3.3-5.1); Sodium 141 mmol/L (135-145); Total Protein 6.6 g/dL (6.5-8.0)
== END 2022-04-15 15:37 | disposition home or self-care (01) ==
LOC: HO.LAB 15:36
PROVIDERS: PCP Internal Medicine; Visit Provider Surgery
DX: R10.9 Unspecified abdominal pain (principal)
CPT/HCPCS: 36415; 80053; 85025

== ENCOUNTER 2022-05-14 09:50 | Outpatient (REF) | payer BC, SELFPAY ==
[2022-05-14 11:16] LABS: C Reactive Protein 0.21 mg/dL (< or = 0.50)
== END 2022-05-14 09:51 | disposition home or self-care (01) ==
LOC: HO.LAB 09:50
PROVIDERS: PCP Internal Medicine; Visit Provider Internal Medicine
DX: K35.32 Acute appendicitis with perforation, localized peritonitis, and gangrene, without abscess (principal); K50.00 Crohn's disease of small intestine without complications; R19.7 Diarrhea, unspecified
CPT/HCPCS: 36415; 86140

== ENCOUNTER 2022-05-15 09:27 | Outpatient (REF) | payer BC, SELFPAY ==
[2022-05-21 21:48] LABS: Calprotectin, Fecal 61 mcg/g
== END 2022-05-15 09:28 | disposition home or self-care (01) ==
LOC: HO.LNP 09:27
PROVIDERS: Visit Provider Internal Medicine
DX: K50.00 Crohn's disease of small intestine without complications (principal); K35.32 Acute appendicitis with perforation, localized peritonitis, and gangrene, without abscess
CPT/HCPCS: 83993

== ENCOUNTER 2022-05-22 09:23 | Outpatient (REF) | payer BC, SELFPAY ==
--- NOTE | ~2022-05-22 | CT_ITS ---
EXAMINATION: CT ABDOMEN AND PELVIS WITH CONTRAST CLINICAL INFORMATION: Crohn's disease of small intestine without complications. COMPARISON: None. TECHNIQUE: Multidetector volumetric images were obtained from the superior aspect of the liver through the pubic symphysis following administration 85 mL of Omnipaque 350 intravenous contrast. Sagittal and coronal reformatted images were obtained on the technologist's workstation. Oral contrast: No This CT examination was performed using dose optimization techniques as appropriate, variously including the following: *Automated exposure control *Adjustment of mA and/or kV according to patient size (this includes techniques or standardized protocols for targeted exams where dose is matched to indication/reason for exam; i.e. extremities or head) *Use of iterative reconstruction technique DLP: 409 mGy-cm FINDINGS: LUNG BASES: The visualized lung bases are unremarkable. LIVER, GALLBLADDER, AND BILIARY TREE: The liver is normal in size, shape, and attenuation. No focal hepatic lesion or biliary ductal dilatation is present. The gallbladder is contracted. PANCREAS: Unremarkable. SPLEEN: Unremarkable. ADRENAL GLANDS: Unremarkable. KIDNEYS AND URETERS: The kidneys are normal in size, shape, and attenuation. No hydronephrosis, hydroureter, or calculi seen. No perinephric stranding. BLADDER: Unremarkable. GASTROINTESTINAL TRACT: There is scattered colonic diverticuli, stool and gas in colon without diverticulitis or obstruction. A fatty ileocecal valve is seen. There is a mild mural thickening involving terminal ileum, most likely from Crohn's disease. No free air or free fluid is seen. ABDOMINAL WALL: No significant hernia is appreciated. LYMPH NODES: There are small shotty left para-aortic lymph nodes. VASCULAR: Unremarkable. PELVIC VISCERA: There is anteverted uterus. No adnexal mass or free fluid seen. OSSEOUS STRUCTURES: No aggressive lytic or sclerotic process seen. CT/CT abdomen pelvis w IV con IMPRESSION: 1. Mild mural thickening involving the terminal ileum most likely from Crohn's disease. There is a fatty ileocecal valve. 2. Scattered colonic diverticulosis without diverticulitis. Fleischner guidelines were followed.
[2022-05-22] MEDS: iohexoL 350 MG/ML 100 ML INFUS..BTL IV (10:10)
[2022-05-22 13:05] LABS: Creatinine POC 0.6 mg/dL (0.5-1.4); GFR POC > 60
== END 2022-05-22 09:24 | disposition home or self-care (01) ==
LOC: HO.CT 09:23
PROVIDERS: Visit Provider Internal Medicine
DX: K50.00 Crohn's disease of small intestine without complications (principal); K35.32 Acute appendicitis with perforation, localized peritonitis, and gangrene, without abscess
CPT/HCPCS: 74177; 82565; Q9967

== ENCOUNTER 2022-05-30 06:31 | Day surgery (SDC) | payer BC, SELFPAY ==
--- NOTE | 2022-05-29 09:37 | HO.ANESPROP2 ---
Documented by User: Roz Pichardo NP 05/29/22 09:40 HPI - Anesthesia Eval Consult details Narrative: 56yo F for Upper Endoscopy and Colonoscopy ETOH abuse PMFSH Active Problems Active Problems: All Active Problems (Updated 04/30/22 @ 09:04 by Nicci Sheldon MD) Costochondritis, acute (Acute) Dysphagia (Acute) Abdominal pain (Acute) Ileitis, regional (Acute) Abnormal CT of the abdomen (Acute) Ruptured appendix (Acute) Chronic pain (Acute) Past Medical History Medical History (Updated 05/30/22 @ 06:59 by Surekha Benson RN) Alcohol abuse Anxiety Chronic pain Fibromyalgia Rosacea Family History Family History Mother Diabetes Cardiomyopathy Father Malignant neoplasm of lung metastatic to brain Surgical History Surgical History History of esophagogastroduodenoscopy (EGD) Hx of colonoscopy Hx of foot surgery Hx of hemorrhoidectomy Hx of tubal ligation Social History Social History Household Members: Family Housing: Apartment Do you presently have visiting nurse or other home services: No Alcohol intake: current Alcohol intake frequency: 3 or more drinks per day Alcohol type: hard liquor Patient Tobacco Use Status: Former Tobacco user Quit Date: 1991 Tobacco use type: Cigarette Cigarette Packs Per Day: 20 Years Smoked: 12 Use of substances other than those prescribed or required for medical reasons: Yes Substance Use Type: Marijuana Substance Use Frequency: Occasionally Are you DNR?: No Advance Directives: No Advance Directives Information Provided: Yes Meds Allergies Allergy/AdvReac Type Severity Reaction Status Date / Time No Known Allergies Allergy Verified 05/30/22 06:58 Home Medications Medication Instructions Recorded Confirmed Last Taken Type duloxetine 60 mg capsule,delayed 1 cap PO DAILY 03/25/22 05/23/22 03/24/22 History release desonide 0.05 % topical cream 1 appl topical BID PRN as directed 04/29/22 05/23/22 Unknown History Exam Exam Date and Time: May 29, 2022 0937 Pertinent Lab Results Pertinent Lab Results: Laboratory Tests 04/15/22 04/15/22 15:44 15:44 WBC 9.0 Hgb 11.6 L Hct 36.1 L Plt Count 409 H Sodium 141 Potassium 4.4 D Chloride 103 Carbon Dioxide 29 BUN 12 Creatinine 0.67 Narrative Narrative: EKG 03/2022 Vent. Rate : 110 BPM ? ? Atrial Rate : 110 BPM ?? P-R Int : 142 ms? QRS Dur : 090 ms ? ? QT Int : 354 ms ? ? ? P-R-T Axes : 041 -04 039 degrees ?? QTc Int : 479 ms ? Sinus tachycardia RSR' or QR pattern in V1 suggests right ventricular conduction delay Nonspecific ST abnormality Abnormal ECG Heart rate has increased Nonspecific ST abnormality is new Assessment and Plan Assessment Anesthesia Assessment: Chart Reviewed Documented by User: Carol Fitzpatrick MD 05/30/22 07:59 [facility] Past Medical History Medical History (Updated 05/30/22 @ 06:59 by Surekha Benson, RN) Alcohol abuse Anxiety Chronic pain Fibromyalgia Rosacea Family History Family History Mother Diabetes Cardiomyopathy Father Malignant neoplasm of lung metastatic to brain Family history of problems with anesthesia: No Surgical History Surgical History History of esophagogastroduodenoscopy (EGD) Hx of colonoscopy Hx of foot surgery Hx of hemorrhoidectomy Hx of tubal ligation History of Problems with Anesthesia: No Social History Social History Household Members: Family Housing: Apartment Do you presently have visiting nurse or other home services: No Alcohol intake: current Alcohol intake frequency: 3 or more drinks per day Alcohol type: hard liquor Patient Tobacco Use Status: Former Tobacco user Quit Date: 1991 Tobacco use type: Cigarette Cigarette Packs Per Day: 20 Years Smoked: 12 Use of substances other than those prescribed or required for medical reasons: Yes Substance Use Type: Marijuana Substance Use Frequency: Occasionally Are you DNR?: No Advance Directives: No Advance Directives Information Provided: Yes Meds Allergies Allergy/AdvReac Type Severity Reaction Status Date / Time No Known Allergies Allergy Verified 05/30/22 06:58 Home Medications Medication Instructions Recorded Confirmed Last Taken Type duloxetine 60 mg capsule,delayed 1 cap PO DAILY 03/25/22 05/23/22 03/24/22 History release desonide 0.05 % topical cream 1 appl topical BID PRN as directed 04/29/22 05/23/22 Unknown History Exam Airway Mallampati Class: II TM Dist: >3cm Neck ROM: Full Heart: rr Lungs: cta Assessment and Plan Final Anesthetic Review Family History of Problems with Anesthesia: No History of Problems with Anesthesia: No NPO: Yes ASA Class: II Final Preanesthetic Review: No Changes in Pt Med Stat, Meds/Allgs Chart Reviewed, Consent Obtained/Reviewed and Anes Risks/Benef Reviewed Patient Risk: Low Procedure Risk: Low Anesthetic Plan Anesthetic Plan: MAC: Disposition: Standard PACU
[2022-05-30 06:39] VITALS: BMI 27.4
[2022-05-30 06:44] VITALS: BP 151/93; PULSE 85; RESP 15; TEMP 36.8; O2SAT 98
[2022-05-30] MEDS: Lactated Ringers 1,000 ML 100 ML IVCONT (06:57)
--- NOTE | 2022-05-30 07:45 | MHC.SHP ---
Pre-Procedural Eval Section A Date of Service: 05/30/22 The History & Physical has been completed within 30 days and I have reviewed it.: Yes Section B Chief Complaint: crohns,dysphagia,Chondrocostal junction syndrome Allergies: Allergies Allergy/AdvReac Type Severity Reaction Status Date / Time No Known Allergies Allergy Verified 05/30/22 06:58 Plan Diagnosis/Plan: Unchanged I have reviewed the history and physical and performed a pertinent physical examination on my patient. No changes have occurred unless specified. Time Spent With Patient Time: Total time managing care of this patient today ____ minutes.
--- NOTE | 2022-05-30 08:41 | P.OP_ITS ---
Operative Note Operative Note Date of Service: 05/30/22 Narrative: Procedure:?Esophagogastroduodenoscopy and Colonoscopy Indication:?Dysphagia, abnormal imaging r/o Crohns Endoscopist:?Nicci Sheldon MD Anesthesia Provider:?Dr Carol Fitzpatrick Anesthesia type:?MAC Instrument:?Olympus GIF-H190 and PCF-H190L ?? EGD Procedure:?? The procedure, indications, preparation and potential complications were reviewed with the patient, who indicated understanding and gave written informed consent to proceed. A physical exam was performed. The endoscope was introduced through the mouth, and advanced to the third part of duodenum. The mucosa was carefully examined on slow withdrawal of the endoscope. The patient tolerated the procedure well. There were no immediate complications.? ? EGD Findings:? * Esophagus:? No overt stricture seen or felt. The Z line was noted at 36 cm. [place]-pink colored tongue of mucosa extended up to 34 cm suspicious for Dorsey's esophagus. 4 quadrant cold forceps biopsies were taken. * Stomach:?Normal stomach mucosa. Random cold forceps gastric biopsies were taken to rule out H Pylori infection.? * Duodenum:? Fissuring of the duodenal mucosa was noted. Cold forceps biopsies were taken from duodenal bulb and second portion of the duodenum to rule out celiac sprue. Colonoscopy Procedure:? The patient was then turned for the colonoscopy. A digital rectal exam was performed which was abnormal due to findings of external hemorrhoids. The colonoscope was then inserted through the anus and advanced through the colon to the cecum at 75 cm and terminal ileum. The appendiceal orifice and ileocecal valve was identified.? Mucosa was carefully examined under high definition white light as the instrument was slowly withdrawn in a retrograde panoramic fashion. Retroflexion was performed in ascending colon and rectum. The procedure was not difficult. There were no immediate obvious complications. The quality of the prep was BBPS: 3+3+3 = excellent Withdrawal time 8 minutes. Limitations: No limitations Colonoscopy findings: Mucosa: Normal to cecum and terminal ileum. Terminal ileum was intubated up to 15 cm and no mucosal abnormalities to include erythema, erosions or ulcerations were seen. Cold forceps biopsies were taken from T.I. Protruding lesions: * Large internal hemorrhoids with stigmata of recent bleeding.? Excavated lesions: * Few small mouthed diverticula were seen scattered throughout the entire colon including the ascending colon. Impression:? * Irregular Z line (biopsy) * Normal stomach (biopsy) * Normal duodenum (biopsy) * Normal colon to cecum and terminal ileum (biopsy) * Internal hemorrhoids * Diverticulosis Recommendations:?? * No endoscopic evidence of acute or chronic inflammation in the colon or te rminal ileum. * Follow biopsy results. Our office will call or send a letter with results within 7-10 days.? * If H pylori +, patient will be prescribed eradication therapy followed by test of cure. * If BE +, timing of next EGD will be contingent on whether dysplasia present or not. * Avoid NSAIDs. Above has been reviewed with the patient. Relevant educational hand outs were provided at discharge.?
[2022-05-30 08:47] VITALS: BP 113/73; PULSE 93; RESP 16; TEMP 36.1; O2SAT 99
[2022-05-30 09:02] VITALS: BP 143/87; PULSE 81; RESP 16; TEMP 36.4; O2SAT 98
== END 2022-05-30 09:24 | disposition home or self-care (01) ==
PROVIDERS: PCP Internal Medicine; Visit Provider Internal Medicine
PROC: (CPT 45380; principal; 2022-05-30 07:30)
DX: K50.00 Crohn's disease of small intestine without complications (principal); K57.30 Diverticulosis of large intestine without perforation or abscess without bleeding; K64.8 Other hemorrhoids; K64.4 Residual hemorrhoidal skin tags; R13.10 Dysphagia, unspecified; M94.0 Chondrocostal junction syndrome [Tietze]; R10.31 Right lower quadrant pain; F10.90 Alcohol use, unspecified, uncomplicated; G89.29 Other chronic pain; M79.7 Fibromyalgia; F41.1 Generalized anxiety disorder; F12.90 Cannabis use, unspecified, uncomplicated; Z80.1 Family history of malignant neoplasm of trachea, bronchus and lung; Z80.8 Family history of malignant neoplasm of other organs or systems; Z87.891 Personal history of nicotine dependence
CPT/HCPCS: 45380; 43239; 88305; 88342; J2250

== ENCOUNTER → 2022-06-04 14:55 | Outpatient (BNVA) | payer BC, SELFPAY | PROVIDERS: PCP Internal Medicine; Visit Provider Surgery | DX: R10.9 Unspecified abdominal pain (principal) ==